=== PATIENT | male | born 1995 | race Two or more races ===

== ENCOUNTER 2023-09-04 13:31 | Inpatient (IN) | payer OTHER, SELFPAY ==
--- NOTE | 2023-09-04 | ECG_ITS ---
Test Reason : MED CLEARANCE Blood Pressure : / mmHG Vent. Rate : 086 BPM Atrial Rate : 086 BPM P-R Int : 148 ms QRS Dur : 084 ms QT Int : 354 ms P-R-T Axes : 061 048 042 degrees QTc Int : 423 ms Normal sinus rhythm Possible Left atrial enlargement Borderline ECG No previous ECGs available Referred By: Justin Chawla Electronically Signed By:ISSAC MUÑOZ MD
[2023-09-04 13:33] VITALS: BP 124/87; BP 130/92; PULSE 80; PULSE 92; RESP 20; TEMP 37.1; O2SAT 100; O2SAT 97; BMI 23.3
--- NOTE | 2023-09-04 13:42 | MHC.CARE ---
Cari harvey [facility] ([phone]) about this patient. She reports he is being sent on section 12. He is on the schizophrenia spectrum, is expressing vague SI/ HI. Religously preoccupied, responding to internal stimuli. He is noted to have not taken his medication for the past few days. Patient resides with his parents.
[2023-09-04 14:33] LABS: MANUAL DIFF FLAG NO
[2023-09-04 14:35] LABS: Basophils Absolute Auto 0.1 X10*3/uL (0.0-0.2); Basophils Percent Auto 0.5 % (0-2); Eosinophils Absolute Auto 0.1 X10*3/uL (0.0-0.4); Eosinophils Percent Auto 0.9 % (0-4); Hematocrit 45.1 % (42.0-52.0); Hemoglobin 15.1 g/dl (14.0-18.0); Imm Gran Abs Auto 0.06 X10*3/uL (0.00-0.03); Imm Gran Pct Auto 0.5 % (0.0-0.4); Lymphocytes Absolute Auto 2.2 X10*3/uL (1.2-4.9); Lymphocytes Percent Auto 17.3 % (20-40); Mean Corpuscular HGB Conc 33.5 g/dl (31.0-36.0); Mean Corpuscular Hemoglobin 32.5 pg (27.0-33.0); Mean Platelet Volume 9.3 fL (9.4-12.4); Monocytes Percent Auto 7.8 % (2-11); Neutrophils Absolute Auto 9.3 x10*3/uL (2.0-8.3); Platelet Count 326 X10*3/uL (160-400); Red Blood Count 4.65 X10*6/uL (4.60-5.80); Red Cell Distribution Width 13.2 % (11.0-16.0); White Blood Count 12.7 X10*3/uL (4.8-10.8)
[2023-09-04 14:47] LABS: COVID-19 Test Negative (Negative); IDNOW Serial# 08D9AD1C
[2023-09-04 14:49] LABS: Alanine Aminotransferase 16 U/L (0-40); Albumin Level 4.5 g/dL (3.5-5.0); Alkaline Phosphatase 74 U/L (39-117); Anion Gap 13 (12-20); Aspartate Amino Transferase 18 U/L (5-37); Bilirubin Total 0.3 mg/dL (0.0-1.0); Blood Urea Nitrogen 9 mg/dL (9-16); Calcium 9.3 mg/dL (8.4-10.2); Carbon Dioxide 27 mmol/L (22-29); Chloride 106 mmol/L (96-108); Creatinine Clr Calc Pharmacy 107.7; Estimated Glomerular Filt Rate > 60; Glucose Random 103 mg/dL (60-115); Lipase 24 U/L (8-78); Magnesium 2.3 mg/dL (1.6-2.6); Potassium 3.9 mmol/L (3.3-5.1); Sodium 142 mmol/L (135-145); Total Protein 7.7 g/dL (6.5-8.0)
[2023-09-04 14:52] LABS: Acetaminophen LAB < 3 mcg/mL (<30); Salicylate < 5.0 mg/dL (15-30)
--- NOTE | 2023-09-04 15:15 | ED_ITS ---
HPI - Psych General Chief Complaint: Psychiatric Symptoms Stated Complaint: SEC 12 CRISIS,MANIC,COOPERATIVE Time Seen by Provider: 09/04/23 16:15 Source: patient and EMS Mode of arrival: ambulatory Limitations: no limitations History of Present Illness HPI Narrative: This is a 27-year-old male presenting with concerns of not feeling like himself, he was seen at [facility] today where he was going to get Section, mother made him leave at the clinic, patient went home and subsequently was Section by police. Non med compliant. Not SI or HI. Having hallucinations and speaking to self during history taking. Denies drugs, alcohol tobacco. No medical complaints. Related Data Home Medications Medication Instructions Recorded Confirmed citalopram 20 mg tablet 20 mg PO DAILY 09/04/23 09/04/23 cyanocobalamin (vitamin B-12) 1,000 mcg PO DAILY 09/04/23 09/04/23 1,000 mcg tablet hydrochlorothiazide 12.5 mg capsule 12.5 mg PO DAILY 09/04/23 09/04/23 risperidone 2 mg tablet 2 mg PO BID 09/04/23 09/04/23 thiamine HCl (vitamin B1) 100 mg 100 mg PO DAILY 09/04/23 09/04/23 tablet Allergies Allergy/AdvReac Type Severity Reaction Status Date / Time No Known Allergies Allergy Verified 09/04/23 23:31 Review of Systems 2 Review of Systems: Constitutional : No Weight loss, No Fever, No Chills, No Fatigue, No Malaise ENT/Mouth : No sore throat, No Rhinorrhea Eyes: No Eye Pain, No Swelling, No Redness Cardiovascular : No Chest Pain, No SOB, No Dyspnea on Exertion, No Orthopnea, No Edema, No Palpitations Respiratory : No Cough, No Sputum, No Wheezing Gastrointestinal : No Nausea, No Vomiting, No Diarrhea, No Constipation, No abdominal Pain, No Hematochezia, No Melena Genitourinary : No Dysuria, No Urinary Frequency, No Hematuria, Musculoskeletal : No joint pain, No Myalgias, No Joint Swelling Skin : No Skin Lesions, No rash Neuro : No Weakness, No Numbness, No Dizziness, No Headache Psych : No Anxiety/Panic, No Depression, + hallucinations, No SI/HI All other systems reviewed and are negative Yes all other systems are reviewed and are negative [facility] Past Medical History Attestation statement: The following information was validated with the patient. Source: old records reviewed and nursing notes reviewed Social History Social History Advance Directives: No Advance Directives Information Provided: No Physical Exam 2 Vital Signs: Vital Signs: Last Vital Signs Temp 97.7 F 09/05/23 06:28 Pulse 68 09/05/23 06:28 Resp 16 09/05/23 06:28 BP 131/77 09/05/23 06:28 Pulse Ox 98 09/05/23 06:28 O2 Del Method Room Air 09/05/23 06:28 BMI result Body Mass Index 23.3 vss Appearance: Alert.? Oriented X3.? No acute distress.?Patient mumbling to self. Head: Normocephalic, atraumatic, no step-offs or deformities Eyes: Pupils equal, round and reactive to light.? ENT: Pharynx normal.? Neck: Normal inspection.? Neck supple.? CVS: Normal heart rate and rhythm.? Pulses normal.? Respiratory: No respiratory distress.? Breath sounds normal.? Abdomen: Soft and nontender.? Skin: Skin warm and dry.? Normal skin color.? Normal skin turgor.? Extremities: No lower extremity edema.? No calf ttp. 5/5 strength to bilateral upper and lower extremities Neuro: Oriented X 3.? No motor deficit.? No sensory deficit. CN 2-12 intact Course Reevaluation(s) Reevaluation #1: Patient with slight leukocytosis this could be around patient's baseline or reactive, I do not suspect infection. No left shift. Chemistry unremarkable. Salicylates, acetaminophen negative. COVID negative. Urine still pending. Time: 15:37 Reevaluation #2: Pending care team evaluation. Time: 15:38 Reevaluation #3: Physician observation to be continued, patient is pending inpatient placement. Home med reconciliation done. Uneventful night. Will continue to monitor. Time: 06:51 Medical Decision Making Medical Decision Making [facility] Narrative: [id number] 27-year-old male presents with acute daina/psychosis, on a Section 12 by police. Physical exam patient mumbling to himself bizarre affect. Concerns for non med compliance and likely schizophrenia versus bipolar disorder. Will rule out metabolic derangements although unlikely patient has no medical complaints. Will also rule out UTI. Will rule out polysubstance abuse and alcohol intoxication Plan medical clearance evaluation by behavioral health Differential Diagnosis Differential Diagnoses: The differential diagnosis associated with the presentation includes Concerns for non med compliance and likely schizophrenia versus bipolar disorder. Will rule out metabolic derangements although unlikely patient has no medical complaints. Will also rule out UTI. Will rule out polysubstance abuse and alcohol intoxication Admission/Observation Consideration of admission/observation: Escalation of care including admission/observation considered Likely Lab Data MDM Lab Attestation statement: I reviewed the patient's lab results. 09/04/23 14:24 09/04/23 14:24 Labs: Lab Results 09/04/23 09/04/23 Range/Units 14:24 16:23 WBC 12.7 H (4.8-10.8) X10*3/uL RBC 4.65 (4.60-5.80) X10*6/uL Hgb 15.1 (14.0-18.0) g/dl Hct 45.1 (42.0-52.0) % MCV 97.0 (80.0-98.0) fL MCH 32.5 (27.0-33.0) pg MCHC 33.5 (31.0-36.0) g/dl RDW 13.2 (11.0-16.0) % Plt Count 326 (160-400) X10*3/uL MPV 9.3 L (9.4-12.4) fL Immature Gran % (Auto) 0.5 H (0.0-0.4) % Neut % (Auto) 73.0 (45-73) % Lymph % (Auto) 17.3 L (20-40) % [place] % (Auto) 7.8 (2-11) % Eos % (Auto) 0.9 (0-4) % Baso % (Auto) 0.5 (0-2) % Lymph # (Auto) 2.2 (1.2-4.9) X10*3/uL [place] # (Auto) 1.0 (0.1-1.2) X10*3/uL Eos # (Auto) 0.1 (0.0-0.4) X10*3/uL Baso # (Auto) 0.1 (0.0-0.2) X10*3/uL Abs Immat Gran (auto) 0.06 H (0.00-0.03) X10*3/uL Absolute Neuts (auto) 9.3 H (2.0-8.3) x10*3/uL Absolute Nucleated RBC 0.000 (0.0-0.012) X10*3/uL Nucleated RBC % (auto) 0.0 (0.0-0.2) /100WBC Sodium 142 (135-145) mmol/L Potassium 3.9 (3.3-5.1) mmol/L Chloride 106 (96-108) mmol/L Carbon Dioxide 27 (22-29) mmol/L Anion Gap 13 (12-20) BUN 9 (9-16) mg/dL Creatinine 0.88 (0.5-1.4) mg/dL Estim Creat Clear Calc 107.7 Estimated GFR > 60 Random Glucose 103 (60-115) mg/dL Calcium 9.3 (8.4-10.2) mg/dL Magnesium 2.3 (1.6-2.6) mg/dL Total Bilirubin 0.3 (0.0-1.0) mg/dL AST 18 (5-37) U/L ALT 16 (0-40) U/L Alkaline Phosphatase 74 (39-117) U/L Total Protein 7.7 (6.5-8.0) g/dL Albumin 4.5 (3.5-5.0) g/dL Lipase 24 (8-78) U/L Urine Color Dark Yellow Urine Appearance Cloudy Urine pH 6.0 (5.0-9.0) Ur Specific [place] >= 1.030 H (1.005-1.025) Urine Protein Trace (Neg-Trace) mg/dL Urine Glucose (UA) Negative (Negative) mg/dL Urine Ketones 15 (Negative) mg/dL Urine Blood Negative (Negative) Urine Nitrite Negative (Negative) Ur Leukocyte Esterase Trace H (Negative) Urine RBC 3-5 H (0-2) /HPF Urine WBC 0-5 (0-5) /HPF Ur Squamous Epith Cells 3-5 (0-2) /HPF Calcium Oxalate Crystal Present Urine Bacteria None Seen (None Seen) Hyaline Casts 6-10 (0-2) /LPF Salicylates < 5.0 L (15-30) mg/dL Urine Opiates Screen Not Detected (Not Detect) Urine Fentanyl Screen Not Detected (Not Detect) Acetaminophen < 3 (<30) mcg/mL Ur Barbiturates Screen Not Detected (Not Detect) Ur Phencyclidine Scrn Not Detected (Not Detect) Ur Amphetamines Screen Not Detected (Not Detect) U Benzodiazepines Scrn Not Detected (Not Detect) Urine Cocaine Screen Not Detected (Not Detect) U Marijuana (THC) Screen POSITIVE H (Not Detect) Ethyl Alcohol < 10 mg/dL COVID-19 (CAROL) Negative (Negative) COVID-19 Clin Com See Note Critical Care Time Critical Care Time Critical Care Time: No Discharge Plan Discharge Clinical Impression: Acute psychosis Patient Disposition: Still a Patient Prescriptions: No Action cyanocobalamin (vitamin B-12) 1,000 mcg tablet 1,000 mcg PO DAILY thiamine HCl (vitamin B1) 100 mg tablet 100 mg PO DAILY risperidone 2 mg tablet 2 mg PO BID citalopram 20 mg tablet 20 mg PO DAILY hydrochlorothiazide 12.5 mg capsule 12.5 mg PO DAILY Interventions: [place]-Suicide Risk Severity Scale Last Done: 09/05/23 00:41
[2023-09-04 16:11] VITALS: BP 117/80; PULSE 95; RESP 20; TEMP 36.6; O2SAT 95
[2023-09-04 16:34] LABS: Appearance Urine Cloudy; Color Urine Dark Yellow; Glucose Urine UA Negative (Negative); Leukocyte Esterase Urine Trace (Negative); Nitrite Urine Negative (Negative); Specific Gravity - Urine >= 1.030 (1.005-1.025); UMIC TRIGGER UACC YES; Urine Blood Negative (Negative); Urine Ketones 15 mg/dL (Negative); Urine Protein Trace mg/dL (Neg-Trace)
[2023-09-04 16:39] LABS: Amphetamine Screen Urine Not Detected (Not Detect); Barbiturates, Urine Not Detected (Not Detect); Benzodiazepines Screen Urine Not Detected (Not Detect); Cannabinoid Screen Urine POSITIVE (Not Detect); Cocaine Screen Urine Not Detected (Not Detect); Fentanyl, urine Not Detected (Not Detect); Opiate Screen Urine Not Detected (Not Detect); Phencyclidine Screen Urine Not Detected (Not Detect)
[2023-09-04 16:40] LABS: Ethanol < 10 mg/dL
[2023-09-04 16:51] LABS: Bacteria Urine None Seen (None Seen); Calcium Oxalate Crystals Urine Present; WBC Urine 0-5 /HPF (0-5)
--- NOTE | 2023-09-04 17:12 | PC.NURSE ---
Patient currently laying in bed. States he has no name when asked, ignores staff when spoken to.
--- NOTE | 2023-09-04 17:39 | MHC.CARE ---
Anuradha Valencia [facility] [phone] [facility] [phone]
--- NOTE | 2023-09-05 00:43 | PC.NURSE ---
Patient is currently in bed appears sleeping, no distress observed/reported, isolative and non concerning behavior, med rec completed/pending provider's approval, disposition per [facility] is section 12 inpatient bed search, labs completed/resulted, will continue to monitor.
[2023-09-05 06:28] VITALS: BP 131/77; PULSE 68; RESP 16; TEMP 36.5; O2SAT 98
--- NOTE | 2023-09-05 06:53 | PC.NURSE ---
patient appears to remain asleep at present respirations are even and unlabored patient appears in no distress
[2023-09-05] MEDS: hydroCHLOROthiazide 12.5 MG TABLET PO (07:16)
[2023-09-05] MEDS: Thiamine HCL 100 MG TABLET PO (07:16)
[2023-09-05] MEDS: risperiDONE 2 MG TABLET PO ×2 (07:16→21:15)
[2023-09-05] MEDS: Cyanocobalamin (Vitamin B-12) 1,000 MCG TABLET 1000 MCG PO (07:16)
[2023-09-05] MEDS: Escitalopram Oxalate 10 MG TABLET PO (11:17)
--- NOTE | 2023-09-05 15:19 | PHA.MEDREC ---
Pharmacy Consult ? Medication Reconciliation Pharmacy has reviewed the medication reconciliation completed by nursing.
--- NOTE | 2023-09-05 16:41 | PC.NURSE ---
patient acting unusual, disconnected coming out stating my parents are
[2023-09-05 19:17] VITALS: BP 115/89; PULSE 89; TEMP 36.2; O2SAT 96
[2023-09-05] MEDS: OLANZapine 5 MG TABLET PO (21:16)
--- NOTE | 2023-09-05 23:26 | PC.ADMIT ---
Patient is a 27 year old single Mongolian speaking male, admitted on a Section 12B to at 1630 and placed on 5 minute safety checks. Patient was evaluated by the [facility] clinic and sent to [facility] ED. He was deemed in need of IPLOC due to patient being noncompliant with his medications x 3 days, paranoid and disorganized, voicing HI and responding to internal stimuli. Patient has also, according to the assessment, been drinking a lot of alcohol. Patient has been treated via IPLOC with the last time being in August of 2021. Patient's utox was positive for marijuana but his ETOH level was <10. During the admission process, patient's speech was noted to be very quiet and, at times, hard to understand. He denied AH or VH but did appear to be responding to internal stimuli. Patient was able to sign releases for his father, pharmacy and insurance company. He could not remember the names of his PCP, therapist or psychiatrist. Patient was difficult to engage during his admission assessment, and thought blocking was noted. Patient was unable, or unwilling, to state how much ETOH he has been drinking. No signs or symptoms of withdrawal noted by this greeting card writer. Patient was cooperative with skin check, ate dinner, showered but did not attend any groups. He needed to be redirected a few times when he tried to wander into other patients' rooms. Patient did not rate his depression or anxety,, he denied any SI or HI. Took his HS meds and was willing to have a mouth check done.
[2023-09-06] MEDS: Cyanocobalamin (Vitamin B-12) 1,000 MCG TABLET 1000 MCG PO (08:34)
[2023-09-06] MEDS: Thiamine HCL 100 MG TABLET PO (08:34)
[2023-09-06] MEDS: risperiDONE 2 MG TABLET PO ×2 (08:34→18:49)
[2023-09-06] MEDS: hydroCHLOROthiazide 12.5 MG TABLET PO (08:34)
[2023-09-06 08:50] VITALS: BP 121/79; PULSE 78; RESP 16; TEMP 37.2; O2SAT 99
[2023-09-06 09:15] LABS: Estimated Average Glucose 103 mg/dL; Hemoglobin A1c % 5.2 % (<6.0)
[2023-09-06 09:32] LABS: Cholesterol 199 mg/dL (<200); HDL Cholesterol 51 mg/dL (>40); LDL Cholesterol Calculated 126 mg/dL (<100); Magnesium 2.2 mg/dL (1.6-2.6); Triglycerides 112 mg/dL (<150)
[2023-09-06 09:46] LABS: Free T4 (Free Thyroxine) 0.97 ng/dL (0.71-1.85); Thyroid Stimulating Hormone 0.88 uIU/mL (0.32-4.0)
[2023-09-06 10:01] LABS: Vitamin B12 1073 pg/mL (200-900)
--- NOTE | 2023-09-06 14:47 | HO.PSYADMNOT ---
HPI Date of Service: 09/06/23 Chief Complaint: acute psychosis Sources of Information: patient interviewed, chart reviewed and crisis/core team assessment reviewed HPI Subjective Notes: Haydee Warning and Section 12B Healthcare Proxy: No Guardianship: No Medical Problems Affecting Mental Status: No Narrative: 27 yo male, to ER with parents from [facility] per recommendation of his therapist with paranoia, disorganized thinking, responding to internal stimuli, SI, HI per father's report, alcohol abuse, medication non compliance. Family reports self-dialoguing, dissociative episodes, restoration preoccupation (asking parents if he was God), loss of memory, lability and irritability. Family believes pt had not taken meds in ~72 hours prior to admission. On the unit, pt presents with acute psychosis. Intermittent med compliance-positive response per team when he does take medication. He allowed a brief meeting with tw to discuss discharge. 12B/Haydee explained. Pt did not want to discuss further. Showering this afternoon, however remains somewhat isolative. Able to complete some of his psychosocial history with Heather GARCIA. Symptoms decrease with medicine compliance Past Psychiatric History: IP: Similiar presentation Aug 2021, Substance Induced Psychosis OP: R[facility], [facility] Regime: Celexa 20 mg, Risperdal 2 mg, Hydroxyzine, Folic Acid, B12 Medical Evaluation Reviewed: Yes [facility] Medical History (Updated 09/06/23 @ 17:04 by Gloria Holland, WATER SERVICE DISPATCHER) Cannabis use disorder Alcohol use disorder Schizophrenia Social History: Living with parents Substance History: Alcohol, Cannabis Diagnostics Vital Signs (24Hr): Vital Signs - 24 hr 09/05/23 19:17 09/06/23 08:50 Temperature 97.1 F 98.9 F Pulse Rate 89 78 Respiratory Rate 16 Blood Pressure 115/89 121/79 Pulse Oximetry 96 99 Oxygen Delivery Method Room Air Room Air BMI result Body Mass Index 23.3 Labs 09/04/23 14:24 09/04/23 14:24 Labs: Laboratory Results - last 48 hr 09/04/23 09/04/23 09/06/23 14:24 16:23 08:31 Sodium 142 Potassium 3.9 Chloride 106 Carbon Dioxide 27 Anion Gap 13 BUN 9 Creatinine 0.88 Estim Creat Clear Calc 107.7 Estimated GFR > 60 Random Glucose 103 Estimat Average Glucose 103 Hemoglobin A1c % 5.2 Calcium 9.3 Magnesium 2.3 2.2 Total Bilirubin 0.3 AST 18 ALT 16 Alkaline Phosphatase 74 Total Protein 7.7 Albumin 4.5 Triglycerides 112 Cholesterol 199 LDL Cholesterol, Calc 126 H HDL Cholesterol 51 Lipase 24 Vitamin B12 1073 H Folate 11.0 TSH 0.88 Free T4 0.97 Urine Color Dark Yellow Urine Appearance Cloudy Urine pH 6.0 Ur Specific [place] >= 1.030 H Urine Protein Trace Urine Glucose (UA) Negative Urine Ketones 15 Urine Blood Negative Urine Nitrite Negative Ur Leukocyte Esterase Trace H Urine RBC 3-5 H Urine WBC 0-5 Ur Squamous Epith Cells 3-5 Calcium Oxalate Crystal Present Urine Bacteria None Seen Hyaline Casts 6-10 Salicylates < 5.0 L Urine Opiates Screen Not Detected Urine Fentanyl Screen Not Detected Acetaminophen < 3 Ur Barbiturates Screen Not Detected Ur Phencyclidine Scrn Not Detected Ur Amphetamines Screen Not Detected U Benzodiazepines Scrn Not Detected Urine Cocaine Screen Not Detected U Marijuana (THC) Screen POSITIVE H Ethyl Alcohol < 10 COVID-19 (CAROL) Negative COVID-19 Clin Com See Note Meds/Allergies Meds Home Medications Medication Instructions Recorded Confirmed Type citalopram 20 mg tablet 20 mg PO DAILY 09/04/23 09/04/23 History cyanocobalamin (vitamin B-12) 1,000 mcg PO DAILY 09/04/23 09/04/23 History 1,000 mcg tablet hydrochlorothiazide 12.5 mg capsule 12.5 mg PO DAILY 09/04/23 09/04/23 History risperidone 2 mg tablet 2 mg PO BID 09/04/23 09/04/23 History thiamine HCl (vitamin B1) 100 mg 100 mg PO DAILY 09/04/23 09/04/23 History tablet Allergies Allergies Allergy/AdvReac Type Severity Reaction Status Date / Time No Known Allergies Allergy Verified 09/04/23 23:31 Mental Status Exam Mental Status Exam Patient Appearance: Fatigued Patient Orientation: Person, Place and Situation Level of Consciousness: Awake and Alert Patient Behavior: Guarded, Suspicious, Fearful, Avoidant, Distractible, Isolative and Good Eye Contact Mood Description: Suspicious, Withdrawn, Constricted, Fearful, Blunted and Apprehensive Affect Description: Constricted Patient Cognition Impaired: Yes Ability to Follow Directions: Fair Speech Pattern: Spontaneous Speech, Soft-Spoken, Delayed and Long Pauses Memory Description: Remote Impaired and Episodic Impaired Hallucinations: Auditory (active response when interviewed) Delusions: Paranoid Ideation and Present Perceptual Disturbances: Depersonalization, Derealization and Hallucinations Thought Process: Distracted and Rumination Thought Content: positive for [place], positive for Circumstantial, positive for Perseveration, positive for Preoccupation, positive for Evasive, positive for Suicidal Ideation and positive for Homicidal Ideation Depressive Symptoms: Loss of Int. in Activity, Isolating-Friends/Family, Thoughts of /Suicide and Difficulty Concentrating Judgement: Poor Assessment & Plan Assessment & Plan (1) Acute psychosis: Status: Acute Code(s): F23 - Brief psychotic disorder (2) Schizophrenia: Status: Acute Code(s): F20.9 - Schizophrenia, unspecified (3) Alcohol use disorder: Status: Acute Code(s): F10.90 - Alcohol use, unspecified, uncomplicated (4) Cannabis use disorder: Status: Acute Code(s): F12.90 - Cannabis use, unspecified, uncomplicated Plan 27 yo male, presents with acute psychosis, ?schizophrenia, alcohol and cannabis use disorder. Pt is a very poor historian, focused on leaving the hospital and with intermittent resistance to medications. By hx, pt does well on regime which we will keep, holding the antidepressant while his psychotic sx are better managed. Will use lorazepam for detox with supportive MVI, folic acid and thiamine. Plan: Collateral Contact Olanzapine prn Lorazepam detox per CIWA MVI, Thiamine, Folic Acid Continue Risperdal Encourage alliance building Patient educated on: therapeutic strategies Informed Consent: does not understand Reason for continued inpatient stay Substantial Risk for: harm to self, harm to others, inability to function and rapid decompensation Statement Statement: I have reviewed the history and physical and performed a pertinent examination on my patient. No changes have occurred unless specified. If the History and Physical was not performed prior to admission, the Hospitalist's service will be consulted for completing the admission physical. Time Spent With Patient Time: Total time managing care of this patient today ____ minutes.
[2023-09-06 17:30] VITALS: BP 139/90; PULSE 115; TEMP 36.4; O2SAT 100
[2023-09-06] MEDS: OLANZapine 5 MG TABLET PO (18:49)
[2023-09-07] MEDS: hydroCHLOROthiazide 12.5 MG TABLET PO (08:01)
[2023-09-07] MEDS: risperiDONE 2 MG TABLET PO ×2 (08:02→19:55)
[2023-09-07] MEDS: Cyanocobalamin (Vitamin B-12) 1,000 MCG TABLET 1000 MCG PO (08:02)
[2023-09-07] MEDS: Thiamine HCL 100 MG TABLET PO (08:02)
[2023-09-07] MEDS: Multivitamin TABLET 1 TAB PO (08:02)
[2023-09-07 08:11] VITALS: BP 126/84; PULSE 107; RESP 16; TEMP 36.6; O2SAT 98
--- NOTE | 2023-09-07 10:38 | HO.PSYCHPN ---
Subjective Subjective Date of Service: 09/07/23 Reason For Visit: acute psychosis Subjective Notes: Section 12B Medical Problems Affecting Mental Status: No Interim History: pt anxious responding to internal stimuli; reports voices but not content; pt visited with parents; pt paranoid and fearful Medication Compliance: Yes Side effects from medications: No Attending Groups: No Review of Systems Acute medical concerns: No Medical Review of Systems: unchanged Review of Systems Review of Systems Constitutional : No Weight loss, No Fever, No Chills, No Fatigue, No Malaise ENT/Mouth : No sore throat, No Rhinorrhea Eyes: No Eye Pain, No Swelling, No Redness Cardiovascular : No Chest Pain, No SOB, No Dyspnea on Exertion, No Orthopnea, No Edema, No Palpitations Respiratory : No Cough, No Sputum, No Wheezing Gastrointestinal : No Nausea, No Vomiting, No Diarrhea, No Constipation, No abdominal Pain, No Hematochezia, No Melena Genitourinary : No Dysuria, No Urinary Frequency, No Hematuria, Musculoskeletal : No joint pain, No Myalgias, No Joint Swelling Skin : No Skin Lesions, No rash Neuro : No Weakness, No Numbness, No Dizziness, No Headache Psych : No Anxiety/Panic, No Depression, + hallucinations, No SI/HI All other systems reviewed and are negative Yes all other systems are reviewed and are negative and Unobtainable due to mental status Mental Status Exam Mental Status Exam Patient Appearance: Fatigued Patient Orientation: Person, Place and Situation Level of Consciousness: Awake and Alert Patient Behavior: Guarded, Suspicious, Fearful, Avoidant, Distractible, Isolative and Good Eye Contact Mood Description: Suspicious, Withdrawn, Constricted, Fearful, Blunted and Apprehensive Affect Description: Constricted Patient Cognition Impaired: Yes Ability to Follow Directions: Fair Speech Pattern: Spontaneous Speech, Soft-Spoken, Delayed and Long Pauses Memory Description: Remote Impaired and Episodic Impaired Judgement: Poor Diagnostics Vital Signs (24Hr): Vital Signs - 24 hr 09/06/23 17:30 09/07/23 08:11 Temperature 97.5 F 97.9 F Pulse Rate 115 H 107 H Respiratory Rate 16 Blood Pressure 139/90 H 126/84 Pulse Oximetry 100 98 Oxygen Delivery Method Room Air Room Air BMI result Body Mass Index 23.3 Labs 09/04/23 14:24 09/04/23 14:24 Labs: Laboratory Results - last 48 hr 09/06/23 08:31 Estimat Average Glucose 103 Hemoglobin A1c % 5.2 Magnesium 2.2 Triglycerides 112 Cholesterol 199 LDL Cholesterol, Calc 126 H HDL Cholesterol 51 Vitamin B12 1073 H Folate 11.0 TSH 0.88 Free T4 0.97 Medications Medications Current Medications Acetaminophen (Acetaminophen 325 Mg Tablet) 650 mg PO Q6H PRN PRN Reason: Headache/Pain Mild Scale (1-3) Al Hydroxide/Mg Hydroxide (Magnesium Hydrox/Alum Hydrox 30 Ml Oral.Susp) 30 ml PO Q6H PRN PRN Reason: Heartburn/Nausea Cyanocobalamin (Cyanocobalamin (Vitamin B-12) 1,000 Mcg Tablet) 1,000 mcg PO DAILY [facility] Last Admin: 09/07/23 08:02 Dose: 1,000 mcg Hydrochlorothiazide (Hydrochlorothiazide 12.5 Mg Tablet) 12.5 mg PO DAILY [facility]; Protocol Last Admin: 09/07/23 08:01 Dose: 12.5 mg Hydroxyzine HCl (Hydroxyzine Hcl 25 Mg Tablet) 25 mg PO Q6H PRN PRN Reason: Anxiety Lorazepam (Lorazepam 1 Mg Tablet) 1 mg PO Q2H PRN PRN Reason: ciwa 6-10 Lorazepam (Lorazepam 1 Mg Tablet) 2 mg PO Q2H PRN PRN Reason: ciwa 11+ Magnesium Hydroxide (Milk Of Magnesia 30 Ml Oral.Susp) 30 ml PO DAILY PRN PRN Reason: Constipation Multivitamins/Vitamin C (Multivitamin Tablet) 1 tab PO DAILY [facility] Last Admin: 09/07/23 08:02 Dose: 1 tab Olanzapine (Olanzapine 5 Mg Tablet) 5 mg PO Q4H PRN PRN Reason: psychosis, daina, agitation Last Admin: 09/06/23 18:49 Dose: 5 mg Risperidone (Risperidone 2 Mg Tablet) 2 mg PO BID [facility] Last Admin: 09/07/23 08:02 Dose: 2 mg Thiamine HCl (Thiamine Hcl 100 Mg Tablet) 100 mg PO DAILY [facility] Last Admin: 09/07/23 08:02 Dose: 100 mg Trazodone HCl (Trazodone Hcl 50 Mg Tablet) 50 mg PO BEDTIME MRX1 PRN PRN Reason: Insomnia Allergies Allergies Allergy/AdvReac Type Severity Reaction Status Date / Time No Known Allergies Allergy Verified 09/04/23 23:31 Assessment & Plan Assessment & Plan (1) Acute psychosis: Status: Acute Code(s): F23 - Brief psychotic disorder (2) Schizophrenia: Status: Acute Code(s): F20.9 - Schizophrenia, unspecified (3) Alcohol use disorder: Status: Acute Code(s): F10.90 - Alcohol use, unspecified, uncomplicated (4) Cannabis use disorder: Status: Acute Code(s): F12.90 - Cannabis use, unspecified, uncomplicated Plan 27 yo male, presents with acute psychosis, ?schizophrenia, alcohol and cannabis use disorder. Pt is a very poor historian, focused on leaving the hospital and with intermittent resistance to medications. By hx, pt does well on regime which we will keep, holding the antidepressant while his psychotic sx are better managed. Will use lorazepam for detox with supportive MVI, folic acid and thiamine. Plan: Collateral Contact Olanzapine prn Lorazepam detox per CIWA MVI, Thiamine, Folic Acid Continue Risperdal Encourage alliance building add hydroxyzine 10mg BID for anxiety Patient educated on: diagnosis, medication risk/benefits and therapeutic strategies Informed Consent: does not understand Reason for continued inpatient stay Substantial Risk for: harm to self, inability to function and rapid decompensation Time Spent With Patient Time: Total time managing care of this patient today ____ minutes.
[2023-09-07] MEDS: hydrOXYzine HCL 25 MG TABLET PO (14:16)
[2023-09-07 16:54] VITALS: BP 141/90; PULSE 106; TEMP 36.2; O2SAT 94
[2023-09-07] MEDS: OLANZapine 5 MG TABLET PO (19:55)
[2023-09-07] MEDS: hydrOXYzine HCL 10 MG TABLET PO (19:55)
[2023-09-08] MEDS: risperiDONE 2 MG TABLET PO ×2 (07:59→22:00)
[2023-09-08] MEDS: Thiamine HCL 100 MG TABLET PO (07:59)
[2023-09-08] MEDS: hydrOXYzine HCL 10 MG TABLET PO ×2 (07:59→22:00)
[2023-09-08] MEDS: hydroCHLOROthiazide 12.5 MG TABLET PO (07:59)
[2023-09-08] MEDS: Multivitamin TABLET 1 TAB PO (07:59)
[2023-09-08] MEDS: Cyanocobalamin (Vitamin B-12) 1,000 MCG TABLET 1000 MCG PO (07:59)
[2023-09-08 08:09] VITALS: BP 128/89; PULSE 84; RESP 16; TEMP 36.1; O2SAT 98
[2023-09-08] MEDS: OLANZapine 5 MG TABLET PO (14:30)
[2023-09-08 18:00] VITALS: BP 145/92; PULSE 95; TEMP 36.4; O2SAT 100
--- NOTE | 2023-09-08 18:28 | HO.PSYCHPN ---
Subjective Subjective Date of Service: 09/08/23 Reason For Visit: acute psychosis Subjective Notes: Section 12B Interim History: pt anxious responding to internal stimuli; visible on unit more; less isolating to room; when asked if hearing voices says initially no and then yes sometimes. pt appears suspicious and guarded Medication Compliance: Yes Side effects from medications: No Attending Groups: Intermittent Review of Systems Acute medical concerns: No Medical Review of Systems: unchanged Review of Systems Review of Systems Constitutional : No Weight loss, No Fever, No Chills, No Fatigue, No Malaise ENT/Mouth : No sore throat, No Rhinorrhea Eyes: No Eye Pain, No Swelling, No Redness Cardiovascular : No Chest Pain, No SOB, No Dyspnea on Exertion, No Orthopnea, No Edema, No Palpitations Respiratory : No Cough, No Sputum, No Wheezing Gastrointestinal : No Nausea, No Vomiting, No Diarrhea, No Constipation, No abdominal Pain, No Hematochezia, No Melena Genitourinary : No Dysuria, No Urinary Frequency, No Hematuria, Musculoskeletal : No joint pain, No Myalgias, No Joint Swelling Skin : No Skin Lesions, No rash Neuro : No Weakness, No Numbness, No Dizziness, No Headache Psych : No Anxiety/Panic, No Depression, + hallucinations, No SI/HI All other systems reviewed and are negative Yes all other systems are reviewed and are negative and Unobtainable due to mental status Mental Status Exam Mental Status Exam Patient Appearance: Fatigued Patient Orientation: Person, Place and Situation Level of Consciousness: Awake and Alert Patient Behavior: Guarded, Suspicious, Fearful, Avoidant, Distractible, Isolative and Good Eye Contact Mood Description: Suspicious, Withdrawn, Constricted, Fearful, Blunted and Apprehensive Affect Description: Constricted Patient Cognition Impaired: Yes Ability to Follow Directions: Fair Speech Pattern: Spontaneous Speech, Soft-Spoken, Delayed and Long Pauses Memory Description: Remote Impaired and Episodic Impaired Judgement: Poor Diagnostics Vital Signs (24Hr): Vital Signs - 24 hr 09/08/23 08:09 Temperature 97.0 F Pulse Rate 84 Respiratory Rate 16 Blood Pressure 128/89 Pulse Oximetry 98 Oxygen Delivery Method Room Air BMI result Body Mass Index 23.3 Labs 09/04/23 14:24 09/04/23 14:24 Medications Medications Current Medications Acetaminophen (Acetaminophen 325 Mg Tablet) 650 mg PO Q6H PRN PRN Reason: Headache/Pain Mild Scale (1-3) Al Hydroxide/Mg Hydroxide (Magnesium Hydrox/Alum Hydrox 30 Ml Oral.Susp) 30 ml PO Q6H PRN PRN Reason: Heartburn/Nausea Cyanocobalamin (Cyanocobalamin (Vitamin B-12) 1,000 Mcg Tablet) 1,000 mcg PO DAILY [facility] Last Admin: 09/08/23 07:59 Dose: 1,000 mcg Hydrochlorothiazide (Hydrochlorothiazide 12.5 Mg Tablet) 12.5 mg PO DAILY [facility]; Protocol Last Admin: 09/08/23 07:59 Dose: 12.5 mg Hydroxyzine HCl (Hydroxyzine Hcl 25 Mg Tablet) 25 mg PO Q6H PRN PRN Reason: Anxiety Hydroxyzine HCl (Hydroxyzine Hcl 10 Mg Tablet) 10 mg PO BID [facility] Last Admin: 09/08/23 07:59 Dose: 10 mg Lorazepam (Lorazepam 1 Mg Tablet) 1 mg PO Q2H PRN PRN Reason: ciwa 6-10 Lorazepam (Lorazepam 1 Mg Tablet) 2 mg PO Q2H PRN PRN Reason: ciwa 11+ Magnesium Hydroxide (Milk Of Magnesia 30 Ml Oral.Susp) 30 ml PO DAILY PRN PRN Reason: Constipation Multivitamins/Vitamin C (Multivitamin Tablet) 1 tab PO DAILY [facility] Last Admin: 09/08/23 07:59 Dose: 1 tab Olanzapine (Olanzapine 5 Mg Tablet) 5 mg PO Q4H PRN PRN Reason: psychosis, daina, agitation Last Admin: 09/08/23 14:30 Dose: 5 mg Risperidone (Risperidone 2 Mg Tablet) 2 mg PO BID [facility] Last Admin: 09/08/23 07:59 Dose: 2 mg Thiamine HCl (Thiamine Hcl 100 Mg Tablet) 100 mg PO DAILY [facility] Last Admin: 09/08/23 07:59 Dose: 100 mg Trazodone HCl (Trazodone Hcl 50 Mg Tablet) 50 mg PO BEDTIME MRX1 PRN PRN Reason: Insomnia Allergies Allergies Allergy/AdvReac Type Severity Reaction Status Date / Time No Known Allergies Allergy Verified 09/04/23 23:31 Assessment & Plan Assessment & Plan (1) Acute psychosis: Status: Acute Code(s): F23 - Brief psychotic disorder (2) Schizophrenia: Status: Acute Code(s): F20.9 - Schizophrenia, unspecified (3) Alcohol use disorder: Status: Acute Code(s): F10.90 - Alcohol use, unspecified, uncomplicated (4) Cannabis use disorder: Status: Acute Code(s): F12.90 - Cannabis use, unspecified, uncomplicated Plan 27 yo male, presents with acute psychosis, ?schizophrenia, alcohol and cannabis use disorder. Pt is a very poor historian, focused on leaving the hospital and with intermittent resistance to medications. By hx, pt does well on regime which we will keep, holding the antidepressant while his psychotic sx are better managed. Will use lorazepam for detox with supportive MVI, folic acid and thiamine. Plan: Collateral Contact Olanzapine prn Lorazepam detox per CIWA MVI, Thiamine, Folic Acid Continue Risperdal Encourage alliance building add hydroxyzine 10mg BID for anxiety 09/08/23 continue treatmetn plan Reason for continued inpatient stay Substantial Risk for: harm to self, inability to function and rapid decompensation Time Spent With Patient Time: Total time managing care of this patient today ____ minutes.
[2023-09-09 06:00] VITALS: BP 129/85; PULSE 107; RESP 18; TEMP 36.2; O2SAT 98
[2023-09-09] MEDS: hydrOXYzine HCL 25 MG TABLET PO ×2 (07:00→15:55)
[2023-09-09] MEDS: Thiamine HCL 100 MG TABLET PO (08:55)
[2023-09-09] MEDS: Multivitamin TABLET 1 TAB PO (08:55)
[2023-09-09] MEDS: hydroCHLOROthiazide 12.5 MG TABLET PO (08:55)
[2023-09-09] MEDS: risperiDONE 2 MG TABLET PO (08:55)
[2023-09-09] MEDS: Cyanocobalamin (Vitamin B-12) 1,000 MCG TABLET 1000 MCG PO (08:55)
[2023-09-09] MEDS: hydrOXYzine HCL 10 MG TABLET PO ×2 (08:55→21:14)
--- NOTE | 2023-09-09 14:22 | P.PNPSI_ITS ---
Subjective Subjective Date of Service: 09/09/23 Reason For Visit: acute psychosis Subjective Notes: Section 12B (expires 09/10/23) Healthcare Proxy: No Guardianship: No Medical Problems Affecting Mental Status: No Interim History: Pt today is in the milieu, yet remains somewhat isolative. He talked briefly with tw x 2. States he is well, asked for nicotine patch and gum and asks to leave. He continues to have a church focus in content. Per team, family reports he is not ready yet. They will encouarge him to sign a CV and continue treatment for a few more days. He does exhibit sx of disorganization and confusion. Reportedly eating toothpaste, attempting to leave the unit over the weekend, responding to internal stimuli, which today he appears to be doing as well. Engagement is improved from 09/06, but remains limited. Will increase Risperdal today. Medication Compliance: Yes Side effects from medications: No Attending Groups: No Review of Systems Acute medical concerns: No Medical Review of Systems: unchanged Mental Status Exam Mental Status Exam Patient Appearance: Appropriate Patient Orientation: Person Level of Consciousness: Alert Patient Behavior: Guarded, Talkative, Suspicious, Distractible and Good Eye Contact Mood Description: Blunted Affect Description: Blunted Patient Cognition Impaired: Yes Ability to Follow Directions: Fair Speech Pattern: Spontaneous Speech and Soft-Spoken Memory Description: Remote Impaired Hallucinations: Auditory Delusions: Paranoid Ideation and Present Perceptual Disturbances: Hallucinations Thought Process: Illogical and Distracted Thought Content: positive for Flight of Ideas, positive for Circumstantial, positive for Preoccupation, positive for Loose Associations, positive for Thought Blocking, positive for Tangential and positive for Suicidal Ideation (denies) Depressive Symptoms: Difficulty Concentrating Judgement: Poor Diagnostics Vital Signs (24Hr): Vital Signs - 24 hr 09/08/23 18:00 09/09/23 06:00 Temperature 97.6 F 97.2 F Pulse Rate 95 107 H Respiratory Rate 18 Blood Pressure 145/92 H 129/85 Pulse Oximetry 100 98 Oxygen Delivery Method Room Air Room Air BMI result Body Mass Index 23.3 Labs 09/04/23 14:24 09/04/23 14:24 Medications Medications Current Medications Acetaminophen (Acetaminophen 325 Mg Tablet) 650 mg PO Q6H PRN PRN Reason: Headache/Pain Mild Scale (1-3) Al Hydroxide/Mg Hydroxide (Magnesium Hydrox/Alum Hydrox 30 Ml Oral.Susp) 30 ml PO Q6H PRN PRN Reason: Heartburn/Nausea Cyanocobalamin (Cyanocobalamin (Vitamin B-12) 1,000 Mcg Tablet) 1,000 mcg PO DAILY [facility] Last Admin: 09/09/23 08:55 Dose: 1,000 mcg Hydrochlorothiazide (Hydrochlorothiazide 12.5 Mg Tablet) 12.5 mg PO DAILY [facility]; Protocol Last Admin: 09/09/23 08:55 Dose: 12.5 mg Hydroxyzine HCl (Hydroxyzine Hcl 25 Mg Tablet) 25 mg PO Q6H PRN PRN Reason: Anxiety Last Admin: 09/09/23 07:00 Dose: 25 mg Hydroxyzine HCl (Hydroxyzine Hcl 10 Mg Tablet) 10 mg PO BID [facility] Last Admin: 09/09/23 08:55 Dose: 10 mg Lorazepam (Lorazepam 1 Mg Tablet) 1 mg PO Q2H PRN PRN Reason: ciwa 6-10 Lorazepam (Lorazepam 1 Mg Tablet) 2 mg PO Q2H PRN PRN Reason: ciwa 11+ Magnesium Hydroxide (Milk Of Magnesia 30 Ml Oral.Susp) 30 ml PO DAILY PRN PRN Reason: Constipation Multivitamins/Vitamin C (Multivitamin Tablet) 1 tab PO DAILY [facility] Last Admin: 09/09/23 08:55 Dose: 1 tab Nicotine (Nicotine 14 Mg Patch.Td24) 14 mg TRANSDERMA DAILY [facility] Nicotine Polacrilex (Nicotine Polacrilex 2 Mg Gum) 2 mg BUCCAL Q2H PRN PRN Reason: Nicotine Cravings Olanzapine (Olanzapine 5 Mg Tablet) 5 mg PO Q4H PRN PRN Reason: psychosis, daina, agitation Last Admin: 09/08/23 14:30 Dose: 5 mg Risperidone (Risperidone 3 Mg Tablet) 3 mg PO BID [facility] Thiamine HCl (Thiamine Hcl 100 Mg Tablet) 100 mg PO DAILY [facility] Last Admin: 09/09/23 08:55 Dose: 100 mg Trazodone HCl (Trazodone Hcl 50 Mg Tablet) 50 mg PO BEDTIME MRX1 PRN PRN Reason: Insomnia Allergies Allergies Allergy/AdvReac Type Severity Reaction Status Date / Time No Known Allergies Allergy Verified 09/04/23 23:31 Assessment & Plan Assessment & Plan (1) Acute psychosis: Status: Acute Code(s): F23 - Brief psychotic disorder (2) Schizophrenia: Status: Acute Code(s): F20.9 - Schizophrenia, unspecified (3) Alcohol use disorder: Status: Acute Code(s): F10.90 - Alcohol use, unspecified, uncomplicated (4) Cannabis use disorder: Status: Acute Code(s): F12.90 - Cannabis use, unspecified, uncomplicated Plan 27 yo male, presents with acute psychosis, ?schizophrenia, alcohol and cannabis use disorder. Pt is a very poor historian, focused on leaving the hospital and with intermittent resistance to medications. By hx, pt does well on regime which we will keep, holding the antidepressant while his psychotic sx are better managed. Will use lorazepam for detox with supportive MVI, folic acid and thiamine. Plan: Collateral Contact Olanzapine prn Lorazepam detox per CIWA MVI, Thiamine, Folic Acid Continue Risperdal Encourage alliance building add hydroxyzine 10mg BID for anxiety 09/08/23 continue treatmetn plan 09/09/23 Increase Risperdal to 3 mg bid Encou[facility] pt to remain in treatment and sign a conditional voluntary Patient educated on: therapeutic strategies Informed Consent: further education needed Reason for continued inpatient stay Substantial Risk for: rapid decompensation Time Spent With Patient Time: Total time managing care of this patient today ____ minutes.
[2023-09-09] MEDS: Nicotine 14 MG PATCH.TD24 TRANSDERMA (15:33)
[2023-09-09] MEDS: OLANZapine 5 MG TABLET PO (15:55)
[2023-09-09 16:40] VITALS: BP 124/90; PULSE 115; RESP 16; TEMP 37; O2SAT 99
[2023-09-09] MEDS: risperiDONE 3 MG TABLET PO (21:15)
[2023-09-10 08:30] VITALS: BP 136/83; PULSE 110; RESP 18; TEMP 36.8; O2SAT 96
[2023-09-10] MEDS: Nicotine 14 MG PATCH.TD24 TRANSDERMA (09:02)
[2023-09-10] MEDS: Cyanocobalamin (Vitamin B-12) 1,000 MCG TABLET 1000 MCG PO (09:03)
[2023-09-10] MEDS: hydrOXYzine HCL 10 MG TABLET PO ×2 (09:03→19:54)
[2023-09-10] MEDS: Multivitamin TABLET 1 TAB PO (09:03)
[2023-09-10] MEDS: Thiamine HCL 100 MG TABLET PO (09:03)
[2023-09-10] MEDS: hydroCHLOROthiazide 12.5 MG TABLET PO (09:04)
[2023-09-10] MEDS: risperiDONE 3 MG TABLET PO ×2 (09:04→19:54)
[2023-09-10] MEDS: Nicotine Polacrilex 2 MG GUM BUCCAL ×3 (13:12→22:46)
--- NOTE | 2023-09-10 15:14 | P.PNPSI_ITS ---
Subjective Subjective Date of Service: 09/10/23 Reason For Visit: acute psychosis Subjective Notes: Conditional Voluntary and Section 12B Healthcare Proxy: No Guardianship: No Medical Problems Affecting Mental Status: No Interim History: Section 12B . Met with pt, parents, Heather GARCIA. Pt signed CV. Plan of care discussed. Parents see pt as improved. Review of meds. Discussion of [facility] option for pre discharge. All are interested in this option, thinking this will be easier for pt to manage. Team report pt with some conflict on the unit-taking others food, trays, asking if peers want to fight, touched a staff member in a private area. Needing boundary reminders Medication Compliance: Yes Side effects from medications: No Attending Groups: No Review of Systems Acute medical concerns: No Review of Systems Review of Systems Yes all other systems are reviewed and are negative and Unobtainable due to mental status Mental Status Exam Mental Status Exam Patient Appearance: Appropriate Patient Orientation: Person Level of Consciousness: Alert Patient Behavior: Guarded, Talkative, Suspicious, Distractible and Good Eye Contact Mood Description: Blunted Affect Description: Blunted Patient Cognition Impaired: Yes Ability to Follow Directions: Fair Speech Pattern: Spontaneous Speech and Soft-Spoken Memory Description: Remote Impaired Hallucinations: Auditory Delusions: Paranoid Ideation and Present Perceptual Disturbances: Hallucinations Thought Process: Illogical and Distracted Thought Content: positive for Flight of Ideas, positive for Circumstantial, positive for Preoccupation, positive for Loose Associations, positive for Thought Blocking, positive for Tangential and positive for Suicidal Ideation (denies) Depressive Symptoms: Difficulty Concentrating Judgement: Poor Diagnostics Vital Signs (24Hr): Vital Signs - 24 hr 09/09/23 16:40 09/10/23 08:30 Temperature 98.6 F 98.2 F Pulse Rate 115 H 110 H Respiratory Rate 16 18 Blood Pressure 124/90 H 136/83 Pulse Oximetry 99 96 Oxygen Delivery Method Room Air Room Air BMI result Body Mass Index 23.3 Labs 09/04/23 14:24 09/04/23 14:24 Medications Medications Current Medications Acetaminophen (Acetaminophen 325 Mg Tablet) 650 mg PO Q6H PRN PRN Reason: Headache/Pain Mild Scale (1-3) Al Hydroxide/Mg Hydroxide (Magnesium Hydrox/Alum Hydrox 30 Ml Oral.Susp) 30 ml PO Q6H PRN PRN Reason: Heartburn/Nausea Cyanocobalamin (Cyanocobalamin (Vitamin B-12) 1,000 Mcg Tablet) 1,000 mcg PO DAILY [facility] Last Admin: 09/10/23 09:03 Dose: 1,000 mcg Hydrochlorothiazide (Hydrochlorothiazide 12.5 Mg Tablet) 12.5 mg PO DAILY [facility]; Protocol Last Admin: 09/10/23 09:04 Dose: 12.5 mg Hydroxyzine HCl (Hydroxyzine Hcl 25 Mg Tablet) 25 mg PO Q6H PRN PRN Reason: Anxiety Last Admin: 09/09/23 15:55 Dose: 25 mg Hydroxyzine HCl (Hydroxyzine Hcl 10 Mg Tablet) 10 mg PO BID [facility] Last Admin: 09/10/23 09:03 Dose: 10 mg Lorazepam (Lorazepam 1 Mg Tablet) 1 mg PO Q2H PRN PRN Reason: ciwa 6-10 Lorazepam (Lorazepam 1 Mg Tablet) 2 mg PO Q2H PRN PRN Reason: ciwa 11+ Magnesium Hydroxide (Milk Of Magnesia 30 Ml Oral.Susp) 30 ml PO DAILY PRN PRN Reason: Constipation Multivitamins/Vitamin C (Multivitamin Tablet) 1 tab PO DAILY [facility] Last Admin: 09/10/23 09:03 Dose: 1 tab Nicotine (Nicotine 14 Mg Patch.Td24) 14 mg TRANSDERMA DAILY [facility] Last Admin: 09/10/23 09:02 Dose: 14 mg Nicotine Polacrilex (Nicotine Polacrilex 2 Mg Gum) 2 mg BUCCAL Q2H PRN PRN Reason: Nicotine Cravings Last Admin: 09/10/23 13:12 Dose: 2 mg Olanzapine (Olanzapine 5 Mg Tablet) 5 mg PO Q4H PRN PRN Reason: psychosis, daina, agitation Last Admin: 09/09/23 15:55 Dose: 5 mg Risperidone (Risperidone 3 Mg Tablet) 3 mg PO BID [facility] Last Admin: 09/10/23 09:04 Dose: 3 mg Thiamine HCl (Thiamine Hcl 100 Mg Tablet) 100 mg PO DAILY [facility] Last Admin: 09/10/23 09:03 Dose: 100 mg Trazodone HCl (Trazodone Hcl 50 Mg Tablet) 50 mg PO BEDTIME MRX1 PRN PRN Reason: Insomnia Allergies Allergies Allergy/AdvReac Type Severity Reaction Status Date / Time No Known Allergies Allergy Verified 09/04/23 23:31 Assessment & Plan Assessment & Plan (1) Acute psychosis: Status: Acute Code(s): F23 - Brief psychotic disorder (2) Schizophrenia: Status: Acute Code(s): F20.9 - Schizophrenia, unspecified (3) Alcohol use disorder: Status: Acute Code(s): F10.90 - Alcohol use, unspecified, uncomplicated (4) Cannabis use disorder: Status: Acute Code(s): F12.90 - Cannabis use, unspecified, uncomplicated Plan 27 yo male, presents with acute psychosis, ?schizophrenia, alcohol and cannabis use disorder. Pt is a very poor historian, focused on leaving the hospital and with intermittent resistance to medications. By hx, pt does well on regime which we will keep, holding the antidepressant while his psychotic sx are better managed. Will use lorazepam for detox with supportive MVI, folic acid and thiamine. Plan: Collateral Contact Olanzapine prn Lorazepam detox per CIWA MVI, Thiamine, Folic Acid Continue Risperdal Encourage alliance building add hydroxyzine 10mg BID for anxiety 09/08/23 continue treatmetn plan 09/09/23 Increase Risperdal to 3 mg bid Encouarge pt to remain in treatment and sign a conditional voluntary 09/10/23 Pt has signed a CV Continue current regime and plan of care Patient educated on: therapeutic strategies Guardian/Caregiver educated on: therapeutic strategies Informed Consent: understands and further education needed Reason for continued inpatient stay Substantial Risk for: rapid decompensation Time Spent With Patient Time: Total time managing care of this patient today ____ minutes.
[2023-09-10 18:43] VITALS: BP 123/90; PULSE 103; RESP 18; TEMP 36.7; O2SAT 97
[2023-09-11 07:45] VITALS: BP 133/85; PULSE 105; RESP 18; TEMP 36.5; O2SAT 99
[2023-09-11] MEDS: Thiamine HCL 100 MG TABLET PO (08:55)
[2023-09-11] MEDS: Multivitamin TABLET 1 TAB PO (08:55)
[2023-09-11] MEDS: hydrOXYzine HCL 10 MG TABLET PO ×2 (08:55→19:53)
[2023-09-11] MEDS: risperiDONE 3 MG TABLET PO ×2 (08:55→19:53)
[2023-09-11] MEDS: hydroCHLOROthiazide 12.5 MG TABLET PO (08:56)
[2023-09-11] MEDS: Cyanocobalamin (Vitamin B-12) 1,000 MCG TABLET 1000 MCG PO (08:56)
[2023-09-11] MEDS: Nicotine 14 MG PATCH.TD24 TRANSDERMA (08:56)
[2023-09-11] MEDS: Nicotine Polacrilex 2 MG GUM BUCCAL ×5 (09:23→22:21)
--- NOTE | 2023-09-11 14:40 | P.PNPSI_ITS ---
Subjective Subjective Date of Service: 09/11/23 Reason For Visit: acute psychosis Subjective Notes: Conditional Voluntary Healthcare Proxy: No Guardianship: No Medical Problems Affecting Mental Status: No Interim History: Episodes of intrusive sx-placed on one to one. Visable in milieu with moments of clarity, continues to respond to internal stimuli. Deferred discussion of [facility] due to active sx. Accepting of medications. Medication Compliance: Yes Side effects from medications: No Attending Groups: Intermittent Review of Systems Acute medical concerns: No Review of Systems Review of Systems Yes all other systems are reviewed and are negative Mental Status Exam Mental Status Exam Patient Appearance: Appropriate Patient Orientation: Person Level of Consciousness: Alert Patient Behavior: Guarded, Talkative, Suspicious, Distractible and Good Eye Contact Mood Description: Blunted Affect Description: Blunted Patient Cognition Impaired: Yes Ability to Follow Directions: Fair Speech Pattern: Spontaneous Speech and Soft-Spoken Memory Description: Remote Impaired Hallucinations: Auditory Delusions: Paranoid Ideation and Present Perceptual Disturbances: Hallucinations Thought Process: Illogical and Distracted Thought Content: positive for Flight of Ideas, positive for Circumstantial, positive for Preoccupation, positive for Loose Associations, positive for Thought Blocking, positive for Tangential and positive for Suicidal Ideation (denies) Depressive Symptoms: Difficulty Concentrating Judgement: Poor Diagnostics Vital Signs (24Hr): Vital Signs - 24 hr 09/10/23 18:43 09/11/23 07:45 Temperature 98.1 F 97.7 F Pulse Rate 103 H 105 H Respiratory Rate 18 18 Blood Pressure 123/90 H 133/85 Pulse Oximetry 97 99 Oxygen Delivery Method Room Air Room Air BMI result Body Mass Index 23.3 Labs 09/04/23 14:24 09/04/23 14:24 Medications Medications Current Medications Acetaminophen (Acetaminophen 325 Mg Tablet) 650 mg PO Q6H PRN PRN Reason: Headache/Pain Mild Scale (1-3) Al Hydroxide/Mg Hydroxide (Magnesium Hydrox/Alum Hydrox 30 Ml Oral.Susp) 30 ml PO Q6H PRN PRN Reason: Heartburn/Nausea Cyanocobalamin (Cyanocobalamin (Vitamin B-12) 1,000 Mcg Tablet) 1,000 mcg PO DAILY [facility] Last Admin: 09/11/23 08:56 Dose: 1,000 mcg Hydrochlorothiazide (Hydrochlorothiazide 12.5 Mg Tablet) 12.5 mg PO DAILY [facility]; Protocol Last Admin: 09/11/23 08:56 Dose: 12.5 mg Hydroxyzine HCl (Hydroxyzine Hcl 25 Mg Tablet) 25 mg PO Q6H PRN PRN Reason: Anxiety Last Admin: 09/09/23 15:55 Dose: 25 mg Hydroxyzine HCl (Hydroxyzine Hcl 10 Mg Tablet) 10 mg PO BID [facility] Last Admin: 09/11/23 08:55 Dose: 10 mg Lorazepam (Lorazepam 1 Mg Tablet) 1 mg PO Q2H PRN PRN Reason: ciwa 6-10 Lorazepam (Lorazepam 1 Mg Tablet) 2 mg PO Q2H PRN PRN Reason: ciwa 11+ Magnesium Hydroxide (Milk Of Magnesia 30 Ml Oral.Susp) 30 ml PO DAILY PRN PRN Reason: Constipation Multivitamins/Vitamin C (Multivitamin Tablet) 1 tab PO DAILY [facility] Last Admin: 09/11/23 08:55 Dose: 1 tab Nicotine (Nicotine 14 Mg Patch.Td24) 14 mg TRANSDERMA DAILY [facility] Last Admin: 09/11/23 08:56 Dose: 14 mg Nicotine Polacrilex (Nicotine Polacrilex 2 Mg Gum) 2 mg BUCCAL Q2H PRN PRN Reason: Nicotine Cravings Last Admin: 09/11/23 13:40 Dose: 2 mg Olanzapine (Olanzapine 5 Mg Tablet) 5 mg PO Q4H PRN PRN Reason: psychosis, daina, agitation Last Admin: 09/09/23 15:55 Dose: 5 mg Risperidone (Risperidone 3 Mg Tablet) 3 mg PO BID [facility] Last Admin: 09/11/23 08:55 Dose: 3 mg Thiamine HCl (Thiamine Hcl 100 Mg Tablet) 100 mg PO DAILY [facility] Last Admin: 09/11/23 08:55 Dose: 100 mg Trazodone HCl (Trazodone Hcl 50 Mg Tablet) 50 mg PO BEDTIME MRX1 PRN PRN Reason: Insomnia Allergies Allergies Allergy/AdvReac Type Severity Reaction Status Date / Time No Known Allergies Allergy Verified 09/04/23 23:31 Assessment & Plan Assessment & Plan (1) Acute psychosis: Status: Acute Code(s): F23 - Brief psychotic disorder (2) Schizophrenia: Status: Acute Code(s): F20.9 - Schizophrenia, unspecified (3) Alcohol use disorder: Status: Acute Code(s): F10.90 - Alcohol use, unspecified, uncomplicated (4) Cannabis use disorder: Status: Acute Code(s): F12.90 - Cannabis use, unspecified, uncomplicated Plan 27 yo male, presents with acute psychosis, ?schizophrenia, alcohol and cannabis use disorder. Pt is a very poor historian, focused on leaving the hospital and with intermittent resistance to medications. By hx, pt does well on regime which we will keep, holding the antidepressant while his psychotic sx are better managed. Will use lorazepam for detox with supportive MVI, folic acid and thiamine. Plan: Collateral Contact Olanzapine prn Lorazepam detox per CIWA MVI, Thiamine, Folic Acid Continue Risperdal Encourage alliance building add hydroxyzine 10mg BID for anxiety 09/08/23 continue treatmetn plan 09/09/23 Increase Risperdal to 3 mg bid Encouarge pt to remain in treatment and sign a conditional voluntary 09/10/23 Pt has signed a CV Continue current regime and plan of care 09/11/23 Begin one to one special due to intrusive sx. Continue regime Informed Consent: further education needed Reason for continued inpatient stay Substantial Risk for: rapid decompensation Time Spent With Patient Time: Total time managing care of this patient today ____ minutes.
[2023-09-11 18:00] VITALS: BP 131/82; PULSE 116; TEMP 36.9; O2SAT 98
[2023-09-11] MEDS: traZODone HCL 50 MG TABLET PO (19:53)
[2023-09-11] MEDS: OLANZapine 5 MG TABLET PO (19:53)
[2023-09-12 07:45] VITALS: BP 110/73; PULSE 104; RESP 18; TEMP 36.3; O2SAT 98
[2023-09-12] MEDS: hydroCHLOROthiazide 12.5 MG TABLET PO (09:31)
[2023-09-12] MEDS: hydrOXYzine HCL 10 MG TABLET PO ×2 (09:31→21:37)
[2023-09-12] MEDS: Thiamine HCL 100 MG TABLET PO (09:31)
[2023-09-12] MEDS: Multivitamin TABLET 1 TAB PO (09:31)
[2023-09-12] MEDS: risperiDONE 3 MG TABLET PO (09:31)
[2023-09-12] MEDS: Cyanocobalamin (Vitamin B-12) 1,000 MCG TABLET 1000 MCG PO (09:31)
[2023-09-12] MEDS: Nicotine 14 MG PATCH.TD24 TRANSDERMA (09:35)
[2023-09-12] MEDS: Nicotine Polacrilex 2 MG GUM BUCCAL ×2 (10:07→21:37)
[2023-09-12] MEDS: hydrOXYzine HCL 25 MG TABLET PO ×2 (10:55→16:59)
[2023-09-12] MEDS: OLANZapine 5 MG TABLET PO (10:55)
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
[2023-09-12 19:50] VITALS: BP 148/83; PULSE 114; RESP 18; TEMP 36.7; O2SAT 98
[2023-09-12] MEDS: Benztropine Mesylate 0.5 MG TABLET PO (21:37)
[2023-09-12] MEDS: HaloperidoL 5 MG TABLET PO (21:37)
[2023-09-12] MEDS: LORazepam 0.5 MG TABLET 0.25 MG PO (21:37)
[2023-09-13 08:01] VITALS: BP 122/77; PULSE 99; RESP 18; TEMP 36.4; O2SAT 98
[2023-09-13] MEDS: LORazepam 0.5 MG TABLET 0.25 MG PO ×2 (08:23→21:21)
[2023-09-13] MEDS: hydrOXYzine HCL 10 MG TABLET PO ×2 (08:23→21:22)
[2023-09-13] MEDS: Multivitamin TABLET 1 TAB PO (08:26)
[2023-09-13] MEDS: Thiamine HCL 100 MG TABLET PO (08:26)
[2023-09-13] MEDS: hydroCHLOROthiazide 12.5 MG TABLET PO (08:27)
[2023-09-13] MEDS: Benztropine Mesylate 0.5 MG TABLET PO ×2 (08:27→21:21)
[2023-09-13] MEDS: HaloperidoL 5 MG TABLET PO ×2 (08:28→21:21)
[2023-09-13] MEDS: Nicotine 14 MG PATCH.TD24 TRANSDERMA (08:31)
[2023-09-13 08:38] LABS: MANUAL DIFF FLAG NO
[2023-09-13 08:41] LABS: Basophils Absolute Auto 0.1 X10*3/uL (0.0-0.2); Basophils Percent Auto 0.5 % (0-2); Eosinophils Absolute Auto 0.3 X10*3/uL (0.0-0.4); Hematocrit 43.2 % (42.0-52.0); Hemoglobin 14.1 g/dl (14.0-18.0); Imm Gran Abs Auto 0.08 X10*3/uL (0.00-0.03); Imm Gran Pct Auto 0.8 % (0.0-0.4); Lymphocytes Absolute Auto 1.7 X10*3/uL (1.2-4.9); Lymphocytes Percent Auto 15.6 % (20-40); Mean Corpuscular HGB Conc 32.6 g/dl (31.0-36.0); Mean Corpuscular Hemoglobin 31.8 pg (27.0-33.0); Mean Corpuscular Volume 97.3 fL (80.0-98.0); Mean Platelet Volume 9.6 fL (9.4-12.4); Monocytes Absolute Auto 1.1 X10*3/uL (0.1-1.2); Monocytes Percent Auto 10.2 % (2-11); Neutrophils Absolute Auto 7.4 x10*3/uL (2.0-8.3); Neutrophils Percent Auto 69.9 % (45-73); Platelet Count 272 X10*3/uL (160-400); Red Blood Count 4.44 X10*6/uL (4.60-5.80); Red Cell Distribution Width 13.3 % (11.0-16.0); White Blood Count 10.6 X10*3/uL (4.8-10.8)
--- NOTE | 2023-09-13 09:48 | HO.PSYCHPN ---
Subjective Subjective Date of Service: 09/13/23 Reason For Visit: acute psychosis Subjective Notes: Conditional Voluntary Interim History: Reviewed with . Patient presents calm, cooperative. Does not present with intrusive behavior; 1:1 DC'd, placed on 5 minute safety checks. Patient reports feeling good today;he feels the medications are slowing me down .Pt states he does not recall going into other people's room's or any previous behavior from [facility]. denies SI/HI/VH/AH. Medication Compliance: Yes Side effects from medications: No Review of Systems Constitutional: Reports as per HPI Eyes: Reports as per HPI Reports as per HPI Cardiovascular: Reports as per HPI Respiratory: Reports as per HPI Gastrointestinal: Reports as per HPI Genitourinary: Reports as per HPI Musculoskeletal: Reports as per HPI Skin/Breast: Reports as per HPI Reports as per HPI Psychiatric: Reports as per HPI Endocrine: Reports as per HPI Hematologic/Lymphatic: Reports as per HPI Allergic/Immunologic: Reports as per HPI Mental Status Exam Mental Status Exam Narrative: Pt is alert and oriented; behavior is cooperative and calm; dressed in casual attire; mood is described as good ; eye contact appropriate; Speech is normal rate, volume and prosody and not pressured; no psychomotor agitation/retardation present; thought process is organized; Thought content is on tx; denies SI/HI. There is no evidence of perceptual disturbance. Diagnostics Vital Signs (24Hr): Vital Signs - 24 hr 09/12/23 19:50 09/13/23 08:01 Temperature 98.1 F 97.5 F Pulse Rate 114 H 99 Respiratory Rate 18 18 Blood Pressure 148/83 H 122/77 Pulse Oximetry 98 98 Oxygen Delivery Method Room Air Room Air BMI result Body Mass Index 23.3 Labs 09/13/23 08:26 09/04/23 14:24 Labs: Laboratory Results - last 48 hr 09/13/23 08:26 WBC 10.6 RBC 4.44 L Hgb 14.1 Hct 43.2 MCV 97.3 MCH 31.8 MCHC 32.6 RDW 13.3 Plt Count 272 MPV 9.6 Immature Gran % (Auto) 0.8 H Neut % (Auto) 69.9 Lymph % (Auto) 15.6 L [place] % (Auto) 10.2 Eos % (Auto) 3.0 Baso % (Auto) 0.5 Lymph # (Auto) 1.7 [place] # (Auto) 1.1 Eos # (Auto) 0.3 Baso # (Auto) 0.1 Abs Immat Gran (auto) 0.08 H Absolute Neuts (auto) 7.4 Absolute Nucleated RBC 0.000 Nucleated RBC % (auto) 0.0 Medications Medications Current Medications Acetaminophen (Acetaminophen 325 Mg Tablet) 650 mg PO Q6H PRN PRN Reason: Headache/Pain Mild Scale (1-3) Al Hydroxide/Mg Hydroxide (Magnesium Hydrox/Alum Hydrox 30 Ml Oral.Susp) 30 ml PO Q6H PRN PRN Reason: Heartburn/Nausea Benztropine Mesylate (Benztropine Mesylate 0.5 Mg Tablet) 0.5 mg PO BID [facility] Last Admin: 09/13/23 08:27 Dose: 0.5 mg Haloperidol (Haloperidol 5 Mg Tablet) 5 mg PO BID [facility] Last Admin: 09/13/23 08:28 Dose: 5 mg Haloperidol (Haloperidol 5 Mg Tablet) 5 mg PO BID PRN PRN Reason: Psychosis Hydrochlorothiazide (Hydrochlorothiazide 12.5 Mg Tablet) 12.5 mg PO DAILY [facility]; Protocol Last Admin: 09/13/23 08:27 Dose: 12.5 mg Hydroxyzine HCl (Hydroxyzine Hcl 25 Mg Tablet) 25 mg PO Q6H PRN PRN Reason: Anxiety Last Admin: 09/12/23 16:59 Dose: 25 mg Hydroxyzine HCl (Hydroxyzine Hcl 10 Mg Tablet) 10 mg PO BID [facility] Last Admin: 09/13/23 08:23 Dose: 10 mg Lorazepam (Lorazepam 1 Mg Tablet) 1 mg PO Q4H PRN PRN Reason: anxiety, agitation Lorazepam (Lorazepam 0.5 Mg Tablet) 0.25 mg PO BID [facility] Last Admin: 09/13/23 08:23 Dose: 0.25 mg Magnesium Hydroxide (Milk Of Magnesia 30 Ml Oral.Susp) 30 ml PO DAILY PRN PRN Reason: Constipation Multivitamins/Vitamin C (Multivitamin Tablet) 1 tab PO DAILY [facility] Last Admin: 09/13/23 08:26 Dose: 1 tab Nicotine (Nicotine 14 Mg Patch.Td24) 14 mg TRANSDERMA DAILY [facility] Last Admin: 09/13/23 08:31 Dose: 14 mg Nicotine Polacrilex (Nicotine Polacrilex 2 Mg Gum) 2 mg BUCCAL Q2H PRN PRN Reason: Nicotine Cravings Last Admin: 09/12/23 21:37 Dose: 2 mg Olanzapine (Olanzapine 5 Mg Tablet) 5 mg PO Q4H PRN PRN Reason: psychosis, daina, agitation Last Admin: 09/12/23 10:55 Dose: 5 mg Thiamine HCl (Thiamine Hcl 100 Mg Tablet) 100 mg PO DAILY [facility] Last Admin: 09/13/23 08:26 Dose: 100 mg Trazodone HCl (Trazodone Hcl 50 Mg Tablet) 50 mg PO BEDTIME MRX1 PRN PRN Reason: Insomnia Last Admin: 09/11/23 19:53 Dose: 50 mg Allergies Allergies Allergy/AdvReac Type Severity Reaction Status Date / Time No Known Allergies Allergy Verified 09/04/23 23:31 Assessment & Plan Assessment & Plan (1) Acute psychosis: Status: Acute Code(s): F23 - Brief psychotic disorder (2) Schizophrenia: Status: Acute Code(s): F20.9 - Schizophrenia, unspecified (3) Alcohol use disorder: Status: Acute Code(s): F10.90 - Alcohol use, unspecified, uncomplicated (4) Cannabis use disorder: Status: Acute Code(s): F12.90 - Cannabis use, unspecified, uncomplicated Plan 27 yo male, presents with acute psychosis, ?schizophrenia, alcohol and cannabis use disorder. Pt is a very poor historian, focused on leaving the hospital and with intermittent resistance to medications. By hx, pt does well on regime which we will keep, holding the antidepressant while his psychotic sx are better managed. Will use lorazepam for detox with supportive MVI, folic acid and thiamine. Plan: Collateral Contact Olanzapine prn Lorazepam detox per [facility] MVI, Thiamine, Folic Acid Continue Risperdal Encourage alliance building add hydroxyzine 10mg BID for anxiety 09/08/23 continue treatmetn plan 09/09/23 Increase Risperdal to 3 mg bid Encouarge pt to remain in treatment and sign a conditional voluntary 09/10/23 Pt has signed a CV Continue current regime and plan of care 09/11/23 Begin one to one special due to intrusive sx. Continue regime 09/12/23 Discontinue Risperdal Haldol 5 mg bid and bid prn psychosis Benztropine 0.5 mg bid Lorazepam 0.25 mg bid Lorazepam prn for anxiety, agitation Repeat CBCD 09/13 (hx of increase of WBC) Transfer to [facility]3 as pt's symptoms have angered his peers Continue one to one 09/13: Patient presents calm, cooperative. Does not present with intrusive behavior; 1:1 DC'd, placed on 5 minute safety checks. Patient reports feeling good today;he feels the medications are slowing me down .Pt states he does not recall going into other people's room's or any previous behavior from [facility]. denies SI/HI/VH/AH. Continue current tx plan. Consider [facility]RNE. Patient educated on: diagnosis, medication risk/benefits and therapeutic strategies Informed Consent: understands Reason for continued inpatient stay Substantial Risk for: med/psych decompensation Time Spent With Patient Time: Total time managing care of this patient today _30___ minutes.
[2023-09-13] MEDS: Nicotine Polacrilex 2 MG GUM BUCCAL ×3 (13:29→19:47)
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
[2023-09-13 19:46] VITALS: BP 138/83; PULSE 111; RESP 18; TEMP 36.8; O2SAT 97
[2023-09-14 08:07] VITALS: BP 119/75; PULSE 96; RESP 18; TEMP 36.9; O2SAT 98
[2023-09-14] MEDS: hydroCHLOROthiazide 12.5 MG TABLET PO (08:14)
[2023-09-14] MEDS: hydrOXYzine HCL 10 MG TABLET PO ×2 (08:14→20:09)
[2023-09-14] MEDS: Benztropine Mesylate 0.5 MG TABLET PO ×2 (08:14→20:09)
[2023-09-14] MEDS: Thiamine HCL 100 MG TABLET PO (08:14)
[2023-09-14] MEDS: Multivitamin TABLET 1 TAB PO (08:14)
[2023-09-14] MEDS: HaloperidoL 5 MG TABLET PO ×2 (08:14→20:09)
[2023-09-14] MEDS: LORazepam 0.5 MG TABLET 0.25 MG PO ×2 (08:14→20:08)
[2023-09-14] MEDS: Nicotine Polacrilex 2 MG GUM BUCCAL ×3 (08:21→19:02)
[2023-09-14] MEDS: Nicotine 14 MG PATCH.TD24 TRANSDERMA (08:29)
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
[2023-09-14 20:00] VITALS: BP 128/78; PULSE 98; RESP 18; TEMP 36.6; O2SAT 99
[2023-09-15] MEDS: hydrOXYzine HCL 10 MG TABLET PO ×2 (08:27→20:30)
[2023-09-15] MEDS: HaloperidoL 5 MG TABLET PO ×2 (08:27→20:29)
[2023-09-15] MEDS: hydroCHLOROthiazide 12.5 MG TABLET PO (08:27)
[2023-09-15] MEDS: Thiamine HCL 100 MG TABLET PO (08:27)
[2023-09-15] MEDS: Benztropine Mesylate 0.5 MG TABLET PO ×2 (08:27→20:29)
[2023-09-15] MEDS: Multivitamin TABLET 1 TAB PO (08:27)
[2023-09-15 08:28] VITALS: BP 103/57; PULSE 93; RESP 18; TEMP 2.3; TEMP 36.2; O2SAT 98
[2023-09-15] MEDS: LORazepam 0.5 MG TABLET 0.25 MG PO ×2 (08:28→20:29)
--- NOTE | 2023-09-15 16:09 | HO.PSYCHPN ---
Subjective Subjective Date of Service: 09/15/23 Reason For Visit: acute psychosis Interim History: Reviewed with RN. Patient remains on 1:1. When asked if he understands why, he says he doesn't. He just says I want to go home. He is isolative and sleeps during the day. He is withdrawn. He denies any symptoms of mood disturbance, anxiety or psychosis. Guarded. He is compliant with medications. No SI. Review of Systems Review of Systems Constitutional : No Weight loss, No Fever, No Chills, No Fatigue, No Malaise ENT/Mouth : No sore throat, No Rhinorrhea Eyes: No Eye Pain, No Swelling, No Redness Cardiovascular : No Chest Pain, No SOB, No Dyspnea on Exertion, No Orthopnea, No Edema, No Palpitations Respiratory : No Cough, No Sputum, No Wheezing Gastrointestinal : No Nausea, No Vomiting, No Diarrhea, No Constipation, No abdominal Pain, No Hematochezia, No Melena Genitourinary : No Dysuria, No Urinary Frequency, No Hematuria, Musculoskeletal : No joint pain, No Myalgias, No Joint Swelling Skin : No Skin Lesions, No rash Neuro : No Weakness, No Numbness, No Dizziness, No Headache Psych : No Anxiety/Panic, No Depression, + hallucinations, No SI/HI All other systems reviewed and are negative Yes all other systems are reviewed and are negative and Unobtainable due to mental status Constitutional: Reports as per HPI Eyes: Reports as per HPI Reports as per HPI Cardiovascular: Reports as per HPI Respiratory: Reports as per HPI Gastrointestinal: Reports as per HPI Genitourinary: Reports as per HPI Musculoskeletal: Reports as per HPI Skin/Breast: Reports as per HPI Reports as per HPI Psychiatric: Reports as per HPI Endocrine: Reports as per HPI Hematologic/Lymphatic: Reports as per HPI Allergic/Immunologic: Reports as per HPI Mental Status Exam Mental Status Exam Narrative: Pt is alert and oriented; behavior is cooperative and calm; dressed in casual attire; mood is described as good ; eye contact appropriate; Speech is normal rate, volume and prosody and not pressured; no psychomotor agitation/retardation present; thought process is organized; Thought content is on tx; denies SI/HI. There is no evidence of perceptual disturbance. Patient Appearance: Appropriate Patient Orientation: Person and Place Level of Consciousness: Awake and Alert Patient Behavior: Guarded, Talkative, Cooperative, Passive, Suspicious, Wandering, Anxious, Distractible, Confused (at times) and Good Eye Contact Mood Description: Blunted Affect Description: Blunted Patient Cognition Impaired: No Ability to Follow Directions: Fair Speech Pattern: Spontaneous Speech, Soft-Spoken and Delayed Memory Description: Remote Impaired Diagnostics Vital Signs (24Hr): Vital Signs - 24 hr 09/14/23 20:00 09/15/23 08:28 Temperature 97.9 F 36.2 F L Pulse Rate 98 93 Respiratory Rate 18 18 Blood Pressure 128/78 103/57 L Pulse Oximetry 99 98 Oxygen Delivery Method Room Air BMI result Body Mass Index 23.3 Labs 09/13/23 08:26 09/04/23 14:24 Medications Medications Current Medications Acetaminophen (Acetaminophen 325 Mg Tablet) 650 mg PO Q6H PRN PRN Reason: Headache/Pain Mild Scale (1-3) Al Hydroxide/Mg Hydroxide (Magnesium Hydrox/Alum Hydrox 30 Ml Oral.Susp) 30 ml PO Q6H PRN PRN Reason: Heartburn/Nausea Benztropine Mesylate (Benztropine Mesylate 0.5 Mg Tablet) 0.5 mg PO BID [facility] Last Admin: 09/15/23 08:27 Dose: 0.5 mg Haloperidol (Haloperidol 5 Mg Tablet) 5 mg PO BID [facility] Last Admin: 09/15/23 08:27 Dose: 5 mg Haloperidol (Haloperidol 5 Mg Tablet) 5 mg PO BID PRN PRN Reason: Psychosis Hydrochlorothiazide (Hydrochlorothiazide 12.5 Mg Tablet) 12.5 mg PO DAILY [facility]; Protocol Last Admin: 09/15/23 08:27 Dose: 12.5 mg Hydroxyzine HCl (Hydroxyzine Hcl 25 Mg Tablet) 25 mg PO Q6H PRN PRN Reason: Anxiety Last Admin: 09/12/23 16:59 Dose: 25 mg Hydroxyzine HCl (Hydroxyzine Hcl 10 Mg Tablet) 10 mg PO BID [facility] Last Admin: 09/15/23 08:27 Dose: 10 mg Lorazepam (Lorazepam 1 Mg Tablet) 1 mg PO Q4H PRN PRN Reason: anxiety, agitation Lorazepam (Lorazepam 0.5 Mg Tablet) 0.25 mg PO BID [facility] Last Admin: 09/15/23 08:28 Dose: 0.25 mg Magnesium Hydroxide (Milk Of Magnesia 30 Ml Oral.Susp) 30 ml PO DAILY PRN PRN Reason: Constipation Multivitamins/Vitamin C (Multivitamin Tablet) 1 tab PO DAILY [facility] Last Admin: 09/15/23 08:27 Dose: 1 tab Nicotine (Nicotine 14 Mg Patch.Td24) 14 mg TRANSDERMA DAILY [facility] Last Admin: 09/15/23 08:36 Dose: Not Given Nicotine Polacrilex (Nicotine Polacrilex 2 Mg Gum) 2 mg BUCCAL Q2H PRN PRN Reason: Nicotine Cravings Last Admin: 09/14/23 19:02 Dose: 2 mg Olanzapine (Olanzapine 5 Mg Tablet) 5 mg PO Q4H PRN PRN Reason: psychosis, daina, agitation Last Admin: 09/12/23 10:55 Dose: 5 mg Thiamine HCl (Thiamine Hcl 100 Mg Tablet) 100 mg PO DAILY [facility] Last Admin: 09/15/23 08:27 Dose: 100 mg Trazodone HCl (Trazodone Hcl 50 Mg Tablet) 50 mg PO BEDTIME MRX1 PRN PRN Reason: Insomnia Last Admin: 09/11/23 19:53 Dose: 50 mg Allergies Allergies Allergy/AdvReac Type Severity Reaction Status Date / Time No Known Allergies Allergy Verified 09/04/23 23:31 Assessment & Plan Assessment & Plan (1) Acute psychosis: Status: Acute Code(s): F23 - Brief psychotic disorder (2) Schizophrenia: Status: Acute Code(s): F20.9 - Schizophrenia, unspecified (3) Alcohol use disorder: Status: Acute Code(s): F10.90 - Alcohol use, unspecified, uncomplicated (4) Cannabis use disorder: Status: Acute Code(s): F12.90 - Cannabis use, unspecified, uncomplicated Plan 27 yo male, presents with acute psychosis, ?schizophrenia, alcohol and cannabis use disorder. Pt is a very poor historian, focused on leaving the hospital and with intermittent resistance to medications. By hx, pt does well on regime which we will keep, holding the antidepressant while his psychotic sx are better managed. Will use lorazepam for detox with supportive MVI, folic acid and thiamine. Plan: Collateral Contact Olanzapine prn Lorazepam detox per [facility] MVI, Thiamine, Folic Acid Continue Risperdal Encourage alliance building add hydroxyzine 10mg BID for anxiety 09/08/23 continue treatmetn plan 09/09/23 Increase Risperdal to 3 mg bid Encouarge pt to remain in treatment and sign a conditional voluntary 09/10/23 Pt has signed a CV Continue current regime and plan of care 09/11/23 Begin one to one special due to intrusive sx. Continue regime 09/12/23 Discontinue Risperdal Haldol 5 mg bid and bid prn psychosis Benztropine 0.5 mg bid Lorazepam 0.25 mg bid Lorazepam prn for anxiety, agitation Repeat CBCD 09/13 (hx of increase of WBC) Transfer to M3 as pt's symptoms have angered his peers Continue one to one 09/13: Patient presents calm, cooperative. Does not present with intrusive behavior; 1:1 DC'd, placed on 5 minute safety checks. Patient reports feeling good today;he feels the medications are slowing me down .Pt states he does not recall going into other people's room's or any previous behavior from M5. denies SI/HI/VH/AH. Continue current tx plan. Consider BYRNE. 09/14:Continue current management and treatment plan. 09/15: Continue current management and treatment plan. Reason for continued inpatient stay Substantial Risk for: inability to function and rapid decompensation Time Spent With Patient Time: Total time managing care of this patient today ____ minutes.
[2023-09-15] MEDS: Nicotine Polacrilex 2 MG GUM BUCCAL (18:51)
[2023-09-15 19:55] VITALS: BP 127/83; PULSE 94; RESP 18; TEMP 36.7; O2SAT 99
[2023-09-15] MEDS: traZODone HCL 50 MG TABLET PO (20:29)
--- NOTE | 2023-09-16 09:21 | P.PNPSI_ITS ---
Subjective Subjective Date of Service: 09/16/23 Reason For Visit: acute psychosis Subjective Notes: Conditional Voluntary Interim History: Reviewed in team and . Patient presents guarded during 1:1. T/W asked pt how he was feeling today, pt replied, I don't know what that means . Pt reports he feels some confusion but was not able to elaborate. Pt stated, I don't want to make eye contact with any females. I don't know why anyone would care if they have a boyfriend or . He states he does not recall touching any other patients. Continues on 1:1. He reports sleeping well. Denies SI/HI/VH/AH. T/W spoke with pt's parents when they visited pt today; mother reported patient appears improved since the last time she visited patient a few days ago. Medication Compliance: Yes Side effects from medications: No Attending Groups: No Review of Systems Constitutional: Reports as per HPI Eyes: Reports as per HPI Reports as per HPI Cardiovascular: Reports as per HPI Respiratory: Reports as per HPI Gastrointestinal: Reports as per HPI Genitourinary: Reports as per HPI Musculoskeletal: Reports as per HPI Skin/Breast: Reports as per HPI Reports as per HPI Psychiatric: Reports as per HPI Endocrine: Reports as per HPI Hematologic/Lymphatic: Reports as per HPI Allergic/Immunologic: Reports as per HPI Mental Status Exam Mental Status Exam Narrative: Pt behavior is guarded, calm; dressed in casual attire; eye contact avoidant; Speech is normal rate, volume and prosody and not pressured; no psychomotor agitation/retardation present; presents with some confusion; denies SI/HI. There is no evidence of perceptual disturbance. Patients insight and judgment are poor. Diagnostics Vital Signs (24Hr): Vital Signs - 24 hr 09/15/23 19:55 Temperature 98.1 F Pulse Rate 94 Respiratory Rate 18 Blood Pressure 127/83 Pulse Oximetry 99 Oxygen Delivery Method Room Air BMI result Body Mass Index 23.3 Labs 09/13/23 08:26 09/04/23 14:24 Medications Medications Current Medications Acetaminophen (Acetaminophen 325 Mg Tablet) 650 mg PO Q6H PRN PRN Reason: Headache/Pain Mild Scale (1-3) Al Hydroxide/Mg Hydroxide (Magnesium Hydrox/Alum Hydrox 30 Ml Oral.Susp) 30 ml PO Q6H PRN PRN Reason: Heartburn/Nausea Benztropine Mesylate (Benztropine Mesylate 0.5 Mg Tablet) 0.5 mg PO BID [facility] Last Admin: 09/15/23 20:29 Dose: 0.5 mg Haloperidol (Haloperidol 5 Mg Tablet) 5 mg PO BID [facility] Last Admin: 09/15/23 20:29 Dose: 5 mg Haloperidol (Haloperidol 5 Mg Tablet) 5 mg PO BID PRN PRN Reason: Psychosis Hydrochlorothiazide (Hydrochlorothiazide 12.5 Mg Tablet) 12.5 mg PO DAILY [facility]; Protocol Last Admin: 09/15/23 08:27 Dose: 12.5 mg Hydroxyzine HCl (Hydroxyzine Hcl 25 Mg Tablet) 25 mg PO Q6H PRN PRN Reason: Anxiety Last Admin: 09/12/23 16:59 Dose: 25 mg Hydroxyzine HCl (Hydroxyzine Hcl 10 Mg Tablet) 10 mg PO BID [facility] Last Admin: 09/15/23 20:30 Dose: 10 mg Lorazepam (Lorazepam 1 Mg Tablet) 1 mg PO Q4H PRN PRN Reason: anxiety, agitation Lorazepam (Lorazepam 0.5 Mg Tablet) 0.25 mg PO BID [facility] Last Admin: 09/15/23 20:29 Dose: 0.25 mg Magnesium Hydroxide (Milk Of Magnesia 30 Ml Oral.Susp) 30 ml PO DAILY PRN PRN Reason: Constipation Multivitamins/Vitamin C (Multivitamin Tablet) 1 tab PO DAILY [facility] Last Admin: 09/15/23 08:27 Dose: 1 tab Nicotine (Nicotine 14 Mg Patch.Td24) 14 mg TRANSDERMA DAILY [facility] Last Admin: 09/15/23 08:36 Dose: Not Given Nicotine Polacrilex (Nicotine Polacrilex 2 Mg Gum) 2 mg BUCCAL Q2H PRN PRN Reason: Nicotine Cravings Last Admin: 09/15/23 18:51 Dose: 2 mg Olanzapine (Olanzapine 5 Mg Tablet) 5 mg PO Q4H PRN PRN Reason: psychosis, daina, agitation Last Admin: 09/12/23 10:55 Dose: 5 mg Thiamine HCl (Thiamine Hcl 100 Mg Tablet) 100 mg PO DAILY [facility] Last Admin: 09/15/23 08:27 Dose: 100 mg Trazodone HCl (Trazodone Hcl 50 Mg Tablet) 50 mg PO BEDTIME MRX1 PRN PRN Reason: Insomnia Last Admin: 09/15/23 20:29 Dose: 50 mg Allergies Allergies Allergy/AdvReac Type Severity Reaction Status Date / Time No Known Allergies Allergy Verified 09/04/23 23:31 Assessment & Plan Assessment & Plan (1) Acute psychosis: Status: Acute Code(s): F23 - Brief psychotic disorder (2) Schizophrenia: Status: Acute Code(s): F20.9 - Schizophrenia, unspecified (3) Alcohol use disorder: Status: Acute Code(s): F10.90 - Alcohol use, unspecified, uncomplicated (4) Cannabis use disorder: Status: Acute Code(s): F12.90 - Cannabis use, unspecified, uncomplicated Plan 27 yo male, presents with acute psychosis, ?schizophrenia, alcohol and cannabis use disorder. Pt is a very poor historian, focused on leaving the hospital and with intermittent resistance to medications. By hx, pt does well on regime which we will keep, holding the antidepressant while his psychotic sx are better managed. Will use lorazepam for detox with supportive MVI, folic acid and thiamine. Plan: Collateral Contact Olanzapine prn Lorazepam detox per [facility] MVI, Thiamine, Folic Acid Continue Risperdal Encourage alliance building add hydroxyzine 10mg BID for anxiety 09/08/23 continue treatmetn plan 09/09/23 Increase Risperdal to 3 mg bid Encouarge pt to remain in treatment and sign a conditional voluntary 09/10/23 Pt has signed a CV Continue current regime and plan of care 09/11/23 Begin one to one special due to intrusive sx. Continue regime 09/12/23 Discontinue Risperdal Haldol 5 mg bid and bid prn psychosis Benztropine 0.5 mg bid Lorazepam 0.25 mg bid Lorazepam prn for anxiety, agitation Repeat CBCD 09/13 (hx of increase of WBC) Transfer to M3 as pt's symptoms have angered his peers Continue one to one 09/13: Patient presents calm, cooperative. Does not present with intrusive behavior; 1:1 DC'd, placed on 5 minute safety checks. Patient reports feeling good today;he feels the medications are slowing me down .Pt states he does not recall going into other people's room's or any previous behavior from M5. denies SI/HI/VH/AH. Continue current tx plan. Consider BYRNE. 09/14:Continue current management and treatment plan. 09/15: Continue current management and treatment plan. 09/16: Patient presents guarded during 1:1. T/W asked pt how he was feeling today, pt replied, I don't know what that means . Pt reports he feels some confusion but was not able to elaborate. Pt stated, I don't want to make eye contact with any females. I don't know why anyone would care if they have a boyfriend or . He states he does not recall touching any other patients. Continues on 1:1. He reports sleeping well. Denies SI/HI/VH/AH. T/W spoke with pt's parents when they visited pt today; mother reported patient appears improved since the last time she visited patient a few days ago. Patient educated on: diagnosis and medication risk/benefits Guardian/Caregiver educated on: diagnosis, medication risk/benefits and therapeutic strategies Informed Consent: understands Reason for continued inpatient stay Substantial Risk for: med/psych decompensation Time Spent With Patient Time: Total time managing care of this patient today _30___ minutes.
[2023-09-16 10:20] VITALS: BP 109/72; PULSE 100; RESP 16; TEMP 37.6; O2SAT 97
[2023-09-16] MEDS: HaloperidoL 5 MG TABLET PO ×2 (10:29→20:44)
[2023-09-16] MEDS: Thiamine HCL 100 MG TABLET PO (10:29)
[2023-09-16] MEDS: Benztropine Mesylate 0.5 MG TABLET PO ×2 (10:29→20:44)
[2023-09-16] MEDS: hydroCHLOROthiazide 12.5 MG TABLET PO (10:29)
[2023-09-16] MEDS: Multivitamin TABLET 1 TAB PO (10:29)
[2023-09-16] MEDS: hydrOXYzine HCL 10 MG TABLET PO ×2 (10:29→20:44)
[2023-09-16] MEDS: LORazepam 0.5 MG TABLET 0.25 MG PO ×2 (10:30→20:44)
[2023-09-16] MEDS: OLANZapine 5 MG TABLET PO ×2 (14:45→23:55)
[2023-09-16 15:35] LABS: MANUAL DIFF FLAG NO
[2023-09-16 15:57] LABS: Anion Gap 12 (12-20); Basophils Absolute Auto 0.1 X10*3/uL (0.0-0.2); Basophils Percent Auto 0.7 % (0-2); Blood Urea Nitrogen 16 mg/dL (9-16); Calcium 9.3 mg/dL (8.4-10.2); Carbon Dioxide 27 mmol/L (22-29); Chloride 102 mmol/L (96-108); Creatinine Clr Calc Pharmacy 114.2; Eosinophils Absolute Auto 0.3 X10*3/uL (0.0-0.4); Eosinophils Percent Auto 2.5 % (0-4); Estimated Glomerular Filt Rate > 60; Glucose Random 136 mg/dL (60-115); Hematocrit 40.8 % (42.0-52.0); Hemoglobin 13.6 g/dl (14.0-18.0); Imm Gran Abs Auto 0.11 X10*3/uL (0.00-0.03); Imm Gran Pct Auto 1.1 % (0.0-0.4); Lymphocytes Absolute Auto 2.4 X10*3/uL (1.2-4.9); Lymphocytes Percent Auto 24.2 % (20-40); Mean Corpuscular HGB Conc 33.3 g/dl (31.0-36.0); Mean Corpuscular Hemoglobin 32.1 pg (27.0-33.0); Mean Corpuscular Volume 96.2 fL (80.0-98.0); Mean Platelet Volume 9.8 fL (9.4-12.4); Monocytes Absolute Auto 1.2 X10*3/uL (0.1-1.2); Neutrophils Absolute Auto 5.9 x10*3/uL (2.0-8.3); Neutrophils Percent Auto 59.5 % (45-73); Platelet Count 307 X10*3/uL (160-400); Potassium 3.8 mmol/L (3.3-5.1); Red Blood Count 4.24 X10*6/uL (4.60-5.80); Red Cell Distribution Width 13.4 % (11.0-16.0); Sodium 137 mmol/L (135-145)
[2023-09-16 19:45] VITALS: BP 121/74; PULSE 92; RESP 18; TEMP 36.7; O2SAT 99
[2023-09-16] MEDS: Nicotine Polacrilex 2 MG GUM BUCCAL (20:52)
[2023-09-16] MEDS: traZODone HCL 50 MG TABLET PO (23:55)
--- NOTE | 2023-09-17 00:58 | PC.NURSE ---
Kris remains on 1:1 for safety r/t inappropriate interactions with female peers. patient's responses are vague with poor eye contact. he denies si/hi/avh but appears to have racing thoughts and to be responding to internal stimuli. no behavioral concerns noted. patient has been visible but has not been interacting with staff or peers. continue to monitor for safety, continue Plan of Care
[2023-09-17 06:00] VITALS: BP 105/60; PULSE 101; TEMP 36.7; O2SAT 97
[2023-09-17] MEDS: hydroCHLOROthiazide 12.5 MG TABLET PO (08:55)
[2023-09-17] MEDS: Nicotine 14 MG PATCH.TD24 TRANSDERMA (08:55)
[2023-09-17] MEDS: LORazepam 0.5 MG TABLET 0.25 MG PO (08:55)
[2023-09-17] MEDS: HaloperidoL 5 MG TABLET PO (08:55)
[2023-09-17] MEDS: Benztropine Mesylate 0.5 MG TABLET PO (08:55)
[2023-09-17] MEDS: hydrOXYzine HCL 10 MG TABLET PO ×2 (08:56→20:20)
[2023-09-17] MEDS: Nicotine Polacrilex 2 MG GUM BUCCAL ×2 (09:54→17:02)
--- NOTE | 2023-09-17 10:04 | HO.PSYCHPN ---
Subjective Subjective Date of Service: 09/17/23 Reason For Visit: acute psychosis Subjective Notes: Conditional Voluntary Interim History: Reviewed in team and . T/W and met with patient in unit office. Patient presents guarded during 1:1. Patient reports feeling good today; pt stated, I don't remember why I'm in here, the police showed up at my door . Pt was asked why he feels the need to touch other people; pt stated, because they are cute. Can White people touch Asians? because I have a niece and nephew who are White and no one better touch them . Patient was educated regarding consent however he appeared confused and stated, can Black people touch White people? . denies SI/HI/VH/AH. Haldol increased to 10mg PO BID. Medication Compliance: Yes Side effects from medications: No Attending Groups: No Review of Systems Constitutional: Reports as per HPI Eyes: Reports as per HPI Reports as per HPI Cardiovascular: Reports as per HPI Respiratory: Reports as per HPI Gastrointestinal: Reports as per HPI Genitourinary: Reports as per HPI Musculoskeletal: Reports as per HPI Skin/Breast: Reports as per HPI Reports as per HPI Psychiatric: Reports as per HPI Endocrine: Reports as per HPI Hematologic/Lymphatic: Reports as per HPI Allergic/Immunologic: Reports as per HPI Mental Status Exam Mental Status Exam Narrative: Pt behavior is guarded, calm; dressed in casual attire; eye contact avoidant; Speech is normal rate, volume and prosody and not pressured; no psychomotor agitation/retardation present; presents with some confusion; denies SI/HI. There is no evidence of perceptual disturbance. Patients insight and judgment are poor. Diagnostics Vital Signs (24Hr): Vital Signs - 24 hr 09/16/23 10:20 09/16/23 19:45 09/17/23 06:00 Temperature 99.7 F 98.1 F 98.1 F Pulse Rate 100 92 101 H Respiratory Rate 16 18 Blood Pressure 109/72 121/74 105/60 Pulse Oximetry 97 99 97 Oxygen Delivery Method Room Air Room Air Room Air BMI result Body Mass Index 23.3 Labs 09/16/23 15:30 09/16/23 15:30 Labs: Laboratory Results - last 48 hr 09/16/23 15:30 WBC 10.0 RBC 4.24 L Hgb 13.6 L Hct 40.8 L MCV 96.2 MCH 32.1 MCHC 33.3 RDW 13.4 Plt Count 307 MPV 9.8 Immature Gran % (Auto) 1.1 H Neut % (Auto) 59.5 Lymph % (Auto) 24.2 [place] % (Auto) 12.0 H Eos % (Auto) 2.5 Baso % (Auto) 0.7 Lymph # (Auto) 2.4 [place] # (Auto) 1.2 Eos # (Auto) 0.3 Baso # (Auto) 0.1 Abs Immat Gran (auto) 0.11 H Absolute Neuts (auto) 5.9 Absolute Nucleated RBC 0.000 Nucleated RBC % (auto) 0.0 Sodium 137 Potassium 3.8 Chloride 102 Carbon Dioxide 27 Anion Gap 12 BUN 16 Creatinine 0.83 Estim Creat Clear Calc 114.2 Estimated GFR > 60 Random Glucose 136 H Calcium 9.3 Ammonia Cancelled Medications Medications Current Medications Acetaminophen (Acetaminophen 325 Mg Tablet) 650 mg PO Q6H PRN PRN Reason: Headache/Pain Mild Scale (1-3) Al Hydroxide/Mg Hydroxide (Magnesium Hydrox/Alum Hydrox 30 Ml Oral.Susp) 30 ml PO Q6H PRN PRN Reason: Heartburn/Nausea Benztropine Mesylate (Benztropine Mesylate 0.5 Mg Tablet) 0.5 mg PO BID [facility] Last Admin: 09/17/23 08:55 Dose: 0.5 mg Haloperidol (Haloperidol 5 Mg Tablet) 5 mg PO BID [facility] Last Admin: 09/17/23 08:55 Dose: 5 mg Haloperidol (Haloperidol 5 Mg Tablet) 5 mg PO BID PRN PRN Reason: Psychosis Hydrochlorothiazide (Hydrochlorothiazide 12.5 Mg Tablet) 12.5 mg PO DAILY [facility]; Protocol Last Admin: 09/17/23 08:55 Dose: 12.5 mg Hydroxyzine HCl (Hydroxyzine Hcl 25 Mg Tablet) 25 mg PO Q6H PRN PRN Reason: Anxiety Last Admin: 09/12/23 16:59 Dose: 25 mg Hydroxyzine HCl (Hydroxyzine Hcl 10 Mg Tablet) 10 mg PO BID [facility] Last Admin: 09/17/23 08:56 Dose: 10 mg Lorazepam (Lorazepam 1 Mg Tablet) 1 mg PO Q4H PRN PRN Reason: anxiety, agitation Lorazepam (Lorazepam 0.5 Mg Tablet) 0.25 mg PO BID [facility] Last Admin: 09/17/23 08:55 Dose: 0.25 mg Magnesium Hydroxide (Milk Of Magnesia 30 Ml Oral.Susp) 30 ml PO DAILY PRN PRN Reason: Constipation Nicotine (Nicotine 14 Mg Patch.Td24) 14 mg TRANSDERMA DAILY [facility] Last Admin: 09/17/23 08:55 Dose: 14 mg Nicotine Polacrilex (Nicotine Polacrilex 2 Mg Gum) 2 mg BUCCAL Q2H PRN PRN Reason: Nicotine Cravings Last Admin: 09/17/23 09:54 Dose: 2 mg Olanzapine (Olanzapine 5 Mg Tablet) 5 mg PO Q4H PRN PRN Reason: psychosis, daina, agitation Last Admin: 09/16/23 23:55 Dose: 5 mg Trazodone HCl (Trazodone Hcl 50 Mg Tablet) 50 mg PO BEDTIME MRX1 PRN PRN Reason: Insomnia Last Admin: 09/16/23 23:55 Dose: 50 mg Allergies Allergies Allergy/AdvReac Type Severity Reaction Status Date / Time No Known Allergies Allergy Verified 09/04/23 23:31 Assessment & Plan Assessment & Plan (1) Acute psychosis: Status: Acute Code(s): F23 - Brief psychotic disorder (2) Schizophrenia: Status: Acute Code(s): F20.9 - Schizophrenia, unspecified (3) Alcohol use disorder: Status: Acute Code(s): F10.90 - Alcohol use, unspecified, uncomplicated (4) Cannabis use disorder: Status: Acute Code(s): F12.90 - Cannabis use, unspecified, uncomplicated Plan 27 yo male, presents with acute psychosis, ?schizophrenia, alcohol and cannabis use disorder. Pt is a very poor historian, focused on leaving the hospital and with intermittent resistance to medications. By hx, pt does well on regime which we will keep, holding the antidepressant while his psychotic sx are better managed. Will use lorazepam for detox with supportive MVI, folic acid and thiamine. Plan: Collateral Contact Olanzapine prn Lorazepam detox per [facility] MVI, Thiamine, Folic Acid Continue Risperdal Encourage alliance building add hydroxyzine 10mg BID for anxiety 09/08/23 continue treatmetn plan 09/09/23 Increase Risperdal to 3 mg bid Encouarge pt to remain in treatment and sign a conditional voluntary 09/10/23 Pt has signed a CV Continue current regime and plan of care 09/11/23 Begin one to one special due to intrusive sx. Continue regime 09/12/23 Discontinue Risperdal Haldol 5 mg bid and bid prn psychosis Benztropine 0.5 mg bid Lorazepam 0.25 mg bid Lorazepam prn for anxiety, agitation Repeat CBCD 09/13 (hx of increase of WBC) Transfer to M3 as pt's symptoms have angered his peers Continue one to one 09/13: Patient presents calm, cooperative. Does not present with intrusive behavior; 1:1 DC'd, placed on 5 minute safety checks. Patient reports feeling good today;he feels the medications are slowing me down .Pt states he does not recall going into other people's room's or any previous behavior from M5. denies SI/HI/VH/AH. Continue current tx plan. Consider BYRNE. 09/14:Continue current management and treatment plan. 09/15: Continue current management and treatment plan. 09/16: Patient presents guarded during 1:1. T/W asked pt how he was feeling today, pt replied, I don't know what that means . Pt reports he feels some confusion but was not able to elaborate. Pt stated, I don't want to make eye contact with any females. I don't know why anyone would care if they have a boyfriend or . He states he does not recall touching any other patients. Continues on 1:1. He reports sleeping well. Denies SI/HI/VH/AH. T/W spoke with pt's parents when they visited pt today; mother reported patient appears improved since the last time she visited patient a few days ago. 09/17: T/W and met with patient in unit office. Patient presents guarded during 1:1. Patient reports feeling good today; pt stated, I don't remember why I'm in here, the police showed up at my door . Pt was asked why he feels the need to touch other people; pt stated, because they are cute. Can White people touch Asians? because I have a niece and nephew who are White and no one better touch them . Patient was educated regarding consent however he appeared confused and stated, can Black people touch White people? . denies SI/HI/VH/AH. Haldol increased to 10mg PO BID. if no improvement in thought process, will consider starting zyprexa and tapering haldol. Patient educated on: medication risk/benefits Informed Consent: understands and further education needed Reason for continued inpatient stay Substantial Risk for: med/psych decompensation Time Spent With Patient Time: Total time managing care of this patient today _30___ minutes.
[2023-09-17] MEDS: HaloperidoL 5 MG TABLET 10 MG PO (20:20)
[2023-09-17] MEDS: Benztropine Mesylate 1 MG TABLET PO (20:20)
[2023-09-17 20:30] VITALS: BP 136/80; PULSE 106; RESP 18; TEMP 36.8; O2SAT 98
[2023-09-18 07:50] VITALS: BP 82/47; PULSE 77; RESP 16; TEMP 36.9; O2SAT 96
--- NOTE | 2023-09-18 08:40 | P.PNPSI_ITS ---
Subjective Subjective Date of Service: 09/18/23 Reason For Visit: acute psychosis Subjective Notes: Conditional Voluntary Interim History: Reviewed in team and . Patient presents guarded during 1:1. Patient reports feeling okay today. Pt reports he has been keeping to himself; continues to present with some confusion. Continues on 1:1 safety checks. denies SI/HI/VH/AH. denies any side effects from increase in Haldol. Medication Compliance: Yes Side effects from medications: No Attending Groups: No Review of Systems Constitutional: Reports as per HPI Eyes: Reports as per HPI Reports as per HPI Cardiovascular: Reports as per HPI Respiratory: Reports as per HPI Gastrointestinal: Reports as per HPI Genitourinary: Reports as per HPI Musculoskeletal: Reports as per HPI Skin/Breast: Reports as per HPI Reports as per HPI Psychiatric: Reports as per HPI Endocrine: Reports as per HPI Hematologic/Lymphatic: Reports as per HPI Allergic/Immunologic: Reports as per HPI Mental Status Exam Mental Status Exam Narrative: Pt behavior is guarded, calm; dressed in casual attire; eye contact avoidant; Speech is normal rate, volume and prosody and not pressured; no psychomotor agitation/retardation present; presents with some confusion; denies SI/HI. There is no evidence of perceptual disturbance. Patients insight and judgment are poor. Diagnostics Vital Signs (24Hr): Vital Signs - 24 hr 09/17/23 20:30 09/18/23 07:50 Temperature 98.3 F 98.4 F Pulse Rate 106 H 77 Respiratory Rate 18 16 Blood Pressure 136/80 82/47 L Pulse Oximetry 98 96 Oxygen Delivery Method Room Air Room Air BMI result Body Mass Index 23.3 Labs 09/16/23 15:30 09/16/23 15:30 Labs: Laboratory Results - last 48 hr 09/16/23 15:30 WBC 10.0 RBC 4.24 L Hgb 13.6 L Hct 40.8 L MCV 96.2 MCH 32.1 MCHC 33.3 RDW 13.4 Plt Count 307 MPV 9.8 Immature Gran % (Auto) 1.1 H Neut % (Auto) 59.5 Lymph % (Auto) 24.2 [place] % (Auto) 12.0 H Eos % (Auto) 2.5 Baso % (Auto) 0.7 Lymph # (Auto) 2.4 [place] # (Auto) 1.2 Eos # (Auto) 0.3 Baso # (Auto) 0.1 Abs Immat Gran (auto) 0.11 H Absolute Neuts (auto) 5.9 Absolute Nucleated RBC 0.000 Nucleated RBC % (auto) 0.0 Sodium 137 Potassium 3.8 Chloride 102 Carbon Dioxide 27 Anion Gap 12 BUN 16 Creatinine 0.83 Estim Creat Clear Calc 114.2 Estimated GFR > 60 Random Glucose 136 H Calcium 9.3 Ammonia Cancelled Medications Medications Current Medications Acetaminophen (Acetaminophen 325 Mg Tablet) 650 mg PO Q6H PRN PRN Reason: Headache/Pain Mild Scale (1-3) Al Hydroxide/Mg Hydroxide (Magnesium Hydrox/Alum Hydrox 30 Ml Oral.Susp) 30 ml PO Q6H PRN PRN Reason: Heartburn/Nausea Benztropine Mesylate (Benztropine Mesylate 1 Mg Tablet) 1 mg PO BID [facility] Last Admin: 09/17/23 20:20 Dose: 1 mg Haloperidol (Haloperidol 5 Mg Tablet) 10 mg PO BID [facility] Last Admin: 09/17/23 20:20 Dose: 10 mg Hydrochlorothiazide (Hydrochlorothiazide 12.5 Mg Tablet) 12.5 mg PO DAILY [facility]; Protocol Last Admin: 09/17/23 08:55 Dose: 12.5 mg Hydroxyzine HCl (Hydroxyzine Hcl 25 Mg Tablet) 25 mg PO Q6H PRN PRN Reason: Anxiety Last Admin: 09/12/23 16:59 Dose: 25 mg Hydroxyzine HCl (Hydroxyzine Hcl 10 Mg Tablet) 10 mg PO BID [facility] Last Admin: 09/17/23 20:20 Dose: 10 mg Lorazepam (Lorazepam 0.5 Mg Tablet) 0.5 mg PO BID PRN PRN Reason: anxiety/restlessness Magnesium Hydroxide (Milk Of Magnesia 30 Ml Oral.Susp) 30 ml PO DAILY PRN PRN Reason: Constipation Nicotine (Nicotine 14 Mg Patch.Td24) 14 mg TRANSDERMA DAILY [facility] Last Admin: 09/17/23 08:55 Dose: 14 mg Nicotine Polacrilex (Nicotine Polacrilex 2 Mg Gum) 2 mg BUCCAL Q2H PRN PRN Reason: Nicotine Cravings Last Admin: 09/17/23 17:02 Dose: 2 mg Trazodone HCl (Trazodone Hcl 50 Mg Tablet) 50 mg PO BEDTIME MRX1 PRN PRN Reason: Insomnia Last Admin: 09/16/23 23:55 Dose: 50 mg Allergies Allergies Allergy/AdvReac Type Severity Reaction Status Date / Time No Known Allergies Allergy Verified 09/04/23 23:31 Assessment & Plan Assessment & Plan (1) Acute psychosis: Status: Acute Code(s): F23 - Brief psychotic disorder (2) Schizophrenia: Status: Acute Code(s): F20.9 - Schizophrenia, unspecified (3) Alcohol use disorder: Status: Acute Code(s): F10.90 - Alcohol use, unspecified, uncomplicated (4) Cannabis use disorder: Status: Acute Code(s): F12.90 - Cannabis use, unspecified, uncomplicated Plan 27 yo male, presents with acute psychosis, ?schizophrenia, alcohol and cannabis use disorder. Pt is a very poor historian, focused on leaving the hospital and with intermittent resistance to medications. By hx, pt does well on regime which we will keep, holding the antidepressant while his psychotic sx are better managed. Will use lorazepam for detox with supportive MVI, folic acid and thiamine. Plan: Collateral Contact Olanzapine prn Lorazepam detox per [facility] MVI, Thiamine, Folic Acid Continue Risperdal Encourage alliance building add hydroxyzine 10mg BID for anxiety 09/08/23 continue treatmetn plan 09/09/23 Increase Risperdal to 3 mg bid Encouarge pt to remain in treatment and sign a conditional voluntary 09/10/23 Pt has signed a CV Continue current regime and plan of care 09/11/23 Begin one to one special due to intrusive sx. Continue regime 09/12/23 Discontinue Risperdal Haldol 5 mg bid and bid prn psychosis Benztropine 0.5 mg bid Lorazepam 0.25 mg bid Lorazepam prn for anxiety, agitation Repeat CBCD 09/13 (hx of increase of WBC) Transfer to M3 as pt's symptoms have angered his peers Continue one to one 09/13: Patient presents calm, cooperative. Does not present with intrusive behavior; 1:1 DC'd, placed on 5 minute safety checks. Patient reports feeling good today;he feels the medications are slowing me down .Pt states he does not recall going into other people's room's or any previous behavior from M5. denies SI/HI/VH/AH. Continue current tx plan. Consider BYRNE. 09/14:Continue current management and treatment plan. 09/15: Continue current management and treatment plan. 09/16: Patient presents guarded during 1:1. T/W asked pt how he was feeling today, pt replied, I don't know what that means . Pt reports he feels some confusion but was not able to elaborate. Pt stated, I don't want to make eye contact with any females. I don't know why anyone would care if they have a boyfriend or . He states he does not recall touching any other patients. Continues on 1:1. He reports sleeping well. Denies SI/HI/VH/AH. T/W spoke with pt's parents when they visited pt today; mother reported patient appears improved since the last time she visited patient a few days ago. 09/17: T/W and met with patient in unit office. Patient presents guarded during 1:1. Patient reports feeling good today; pt stated, I don't remember why I'm in here, the police showed up at my door . Pt was asked why he feels the need to touch other people; pt stated, because they are cute. Can White people touch Asians? because I have a niece and nephew who are White and no one better touch them . Patient was educated regarding consent however he appeared confused and stated, can Black people touch White people? . denies SI/HI/VH/AH. Haldol increased to 10mg PO BID. if no improvement in thought process, will consider starting zyprexa and tapering haldol. 09/18: Patient presents guarded during 1:1. Patient reports feeling okay today. Pt reports he has been keeping to himself; continues to present with some confusion. Continues on 1:1 safety checks. denies SI/HI/VH/AH. denies any side effects from increase in Haldol. Continue current tx plan. Patient educated on: diagnosis and medication risk/benefits Informed Consent: understands and further education needed Reason for continued inpatient stay Substantial Risk for: med/psych decompensation Time Spent With Patient Time: Total time managing care of this patient today _30___ minutes.
[2023-09-18 09:30] VITALS: BP 117/74
[2023-09-18] MEDS: hydroCHLOROthiazide 12.5 MG TABLET PO (09:30)
[2023-09-18] MEDS: hydrOXYzine HCL 10 MG TABLET PO ×2 (09:31→20:51)
[2023-09-18] MEDS: HaloperidoL 5 MG TABLET 10 MG PO ×2 (09:31→20:52)
[2023-09-18] MEDS: Benztropine Mesylate 1 MG TABLET PO ×2 (09:31→20:51)
[2023-09-18] MEDS: Nicotine 14 MG PATCH.TD24 TRANSDERMA (09:33)
[2023-09-18] MEDS: Nicotine Polacrilex 2 MG GUM BUCCAL (16:48)
[2023-09-18 18:00] VITALS: BP 120/85; PULSE 95; RESP 18; TEMP 36.7; O2SAT 98
[2023-09-18] MEDS: traZODone HCL 50 MG TABLET PO (20:51)
[2023-09-18] MEDS: LORazepam 0.5 MG TABLET PO (20:52)
[2023-09-19 07:00] VITALS: BMI 24.8
--- NOTE | 2023-09-19 08:16 | HO.PSYCHPN ---
Subjective Subjective Date of Service: 09/19/23 Reason For Visit: acute psychosis Interim History: met with patient; discussed with team; reviewed notes Patient lying in bed with cover over his head. He says that he is good and denies any problems or complaints other than to say that things on the unit are the same every day... On inquiry he reports he does not know why he was brought to the hospital. He denies AVH, SI or HI though remains internally preoccupied. Patient difficult with which to engage Mental Status Exam Mental Status Exam Narrative: Pt behavior is guarded, calm; dressed in casual attire; eye contact avoidant; Speech is normal rate, volume and prosody and not pressured; no psychomotor agitation/retardation present; presents with some confusion; denies SI/HI. There is no evidence of perceptual disturbance. Patients insight and judgment are poor. Diagnostics Vital Signs (24Hr): Vital Signs - 24 hr 09/18/23 09:30 09/18/23 18:00 Temperature 98.1 F Pulse Rate 95 Respiratory Rate 18 Blood Pressure 117/74 120/85 Pulse Oximetry 98 Oxygen Delivery Method Room Air BMI result Body Mass Index 23.3 Labs 09/16/23 15:30 09/16/23 15:30 Medications Medications Current Medications Acetaminophen (Acetaminophen 325 Mg Tablet) 650 mg PO Q6H PRN PRN Reason: Headache/Pain Mild Scale (1-3) Al Hydroxide/Mg Hydroxide (Magnesium Hydrox/Alum Hydrox 30 Ml Oral.Susp) 30 ml PO Q6H PRN PRN Reason: Heartburn/Nausea Benztropine Mesylate (Benztropine Mesylate 1 Mg Tablet) 1 mg PO BID [facility] Last Admin: 09/18/23 20:51 Dose: 1 mg Haloperidol (Haloperidol 5 Mg Tablet) 10 mg PO BID [facility] Last Admin: 09/18/23 20:52 Dose: 10 mg Hydrochlorothiazide (Hydrochlorothiazide 12.5 Mg Tablet) 12.5 mg PO DAILY [facility]; Protocol Last Admin: 09/18/23 09:30 Dose: 12.5 mg Hydroxyzine HCl (Hydroxyzine Hcl 25 Mg Tablet) 25 mg PO Q6H PRN PRN Reason: Anxiety Last Admin: 09/12/23 16:59 Dose: 25 mg Hydroxyzine HCl (Hydroxyzine Hcl 10 Mg Tablet) 10 mg PO BID [facility] Last Admin: 09/18/23 20:51 Dose: 10 mg Lorazepam (Lorazepam 0.5 Mg Tablet) 0.5 mg PO BID PRN PRN Reason: anxiety/restlessness Last Admin: 09/18/23 20:52 Dose: 0.5 mg Magnesium Hydroxide (Milk Of Magnesia 30 Ml Oral.Susp) 30 ml PO DAILY PRN PRN Reason: Constipation Nicotine (Nicotine 14 Mg Patch.Td24) 14 mg TRANSDERMA DAILY [facility] Last Admin: 09/18/23 09:33 Dose: 14 mg Nicotine Polacrilex (Nicotine Polacrilex 2 Mg Gum) 2 mg BUCCAL Q2H PRN PRN Reason: Nicotine Cravings Last Admin: 09/18/23 16:48 Dose: 2 mg Trazodone HCl (Trazodone Hcl 50 Mg Tablet) 50 mg PO BEDTIME MRX1 PRN PRN Reason: Insomnia Last Admin: 09/18/23 20:51 Dose: 50 mg Allergies Allergies Allergy/AdvReac Type Severity Reaction Status Date / Time No Known Allergies Allergy Verified 09/04/23 23:31 Assessment & Plan Assessment & Plan (1) Acute psychosis: Status: Acute Code(s): F23 - Brief psychotic disorder (2) Schizophrenia: Status: Acute Code(s): F20.9 - Schizophrenia, unspecified (3) Alcohol use disorder: Status: Acute Code(s): F10.90 - Alcohol use, unspecified, uncomplicated (4) Cannabis use disorder: Status: Acute Code(s): F12.90 - Cannabis use, unspecified, uncomplicated Plan 27 yo male, presents with acute psychosis, ?schizophrenia, alcohol and cannabis use disorder. Pt is a very poor historian, focused on leaving the hospital and with intermittent resistance to medications. By hx, pt does well on regime which we will keep, holding the antidepressant while his psychotic sx are better managed. Will use lorazepam for detox with supportive MVI, folic acid and thiamine. Plan: Collateral Contact Olanzapine prn Lorazepam detox per [facility] MVI, Thiamine, Folic Acid Continue Risperdal Encourage alliance building add hydroxyzine 10mg BID for anxiety 09/08/23 continue treatmetn plan 09/09/23 Increase Risperdal to 3 mg bid Encouarge pt to remain in treatment and sign a conditional voluntary 09/10/23 Pt has signed a CV Continue current regime and plan of care 09/11/23 Begin one to one special due to intrusive sx. Continue regime 09/12/23 Discontinue Risperdal Haldol 5 mg bid and bid prn psychosis Benztropine 0.5 mg bid Lorazepam 0.25 mg bid Lorazepam prn for anxiety, agitation Repeat CBCD 09/13 (hx of increase of WBC) Transfer to M3 as pt's symptoms have angered his peers Continue one to one 09/13: Patient presents calm, cooperative. Does not present with intrusive behavior; 1:1 DC'd, placed on 5 minute safety checks. Patient reports feeling good today;he feels the medications are slowing me down .Pt states he does not recall going into other people's room's or any previous behavior from M5. denies SI/HI/VH/AH. Continue current tx plan. Consider BYRNE. 09/14:Continue current management and treatment plan. 09/15: Continue current management and treatment plan. 09/16: Patient presents guarded during 1:1. T/W asked pt how he was feeling today, pt replied, I don't know what that means . Pt reports he feels some confusion but was not able to elaborate. Pt stated, I don't want to make eye contact with any females. I don't know why anyone would care if they have a boyfriend or . He states he does not recall touching any other patients. Continues on 1:1. He reports sleeping well. Denies SI/HI/VH/AH. T/W spoke with pt's parents when they visited pt today; mother reported patient appears improved since the last time she visited patient a few days ago. 09/17: T/W and met with patient in unit office. Patient presents guarded during 1:1. Patient reports feeling good today; pt stated, I don't remember why I'm in here, the police showed up at my door . Pt was asked why he feels the need to touch other people; pt stated, because they are cute. Can White people touch Asians? because I have a niece and nephew who are White and no one better touch them . Patient was educated regarding consent however he appeared confused and stated, can Black people touch White people? . denies SI/HI/VH/AH. Haldol increased to 10mg PO BID. if no improvement in thought process, will consider starting zyprexa and tapering haldol. 09/18: Patient presents guarded during 1:1. Patient reports feeling okay today. Pt reports he has been keeping to himself; continues to present with some confusion. Continues on 1:1 safety checks. denies SI/HI/VH/AH. denies any side effects from increase in Haldol. Continue current tx plan. 09/19 patient remains disorganized; continue one-to-one; continue current treatment plan Patient educated on: diagnosis Informed Consent: does not understand Reason for continued inpatient stay Substantial Risk for: inability to function Time Spent With Patient Time: Total time managing care of this patient today ____ minutes.
[2023-09-19 08:20] VITALS: BP 101/65; PULSE 82; RESP 16; TEMP 36.9; O2SAT 95
[2023-09-19] MEDS: hydroCHLOROthiazide 12.5 MG TABLET PO (08:24)
[2023-09-19] MEDS: HaloperidoL 5 MG TABLET 10 MG PO ×2 (08:25→20:56)
[2023-09-19] MEDS: hydrOXYzine HCL 10 MG TABLET PO ×2 (08:25→20:56)
[2023-09-19] MEDS: Benztropine Mesylate 1 MG TABLET PO ×2 (08:25→20:56)
[2023-09-19] MEDS: Nicotine 14 MG PATCH.TD24 TRANSDERMA (08:27)
[2023-09-19] MEDS: Nicotine Polacrilex 2 MG GUM BUCCAL ×3 (13:52→20:56)
[2023-09-19 20:27] VITALS: BP 118/73; PULSE 107; RESP 18; TEMP 36.8; O2SAT 98
[2023-09-19] MEDS: traZODone HCL 50 MG TABLET PO (20:56)
[2023-09-19] MEDS: LORazepam 0.5 MG TABLET PO (20:56)
[2023-09-20 07:20] VITALS: BP 97/53; PULSE 99; RESP 18; TEMP 36.9; O2SAT 97
[2023-09-20] MEDS: Nicotine 14 MG PATCH.TD24 TRANSDERMA (08:55)
[2023-09-20] MEDS: hydroCHLOROthiazide 12.5 MG TABLET PO (08:56)
[2023-09-20] MEDS: hydrOXYzine HCL 10 MG TABLET PO ×2 (08:56→22:41)
[2023-09-20] MEDS: HaloperidoL 5 MG TABLET 10 MG PO ×2 (08:56→22:41)
[2023-09-20] MEDS: Benztropine Mesylate 1 MG TABLET PO ×2 (08:57→22:41)
--- NOTE | 2023-09-20 12:49 | P.PNPSI_ITS ---
Subjective Subjective Date of Service: 09/20/23 Reason For Visit: acute psychosis Interim History: met with patient; discussed with team Patient not sure why he is here; very concrete in description, says he was at his house, sleeping in the police showed up took him to the hospital. He does not know why. He denies any AVH, denies any delusional thinking and none expressed. He is open to medication changes including clozapine. Mental Status Exam Mental Status Exam Narrative: Pt behavior is guarded, calm; dressed in casual attire; eye contact avoidant; Speech is normal rate, volume and prosody and not pressured; no psychomotor agitation/retardation present; presents with some confusion; denies SI/HI. There is no evidence of perceptual disturbance. Patients insight and judgment are poor. Diagnostics Vital Signs (24Hr): Vital Signs - 24 hr 09/19/23 20:27 09/20/23 07:20 Temperature 98.2 F 98.4 F Pulse Rate 107 H 99 Respiratory Rate 18 18 Blood Pressure 118/73 97/53 L Pulse Oximetry 98 97 Oxygen Delivery Method Room Air Room Air BMI result Body Mass Index 24.8 Labs 09/26/23 13:26 09/26/23 13:26 Medications Medications Current Medications Acetaminophen (Acetaminophen 325 Mg Tablet) 650 mg PO Q6H PRN PRN Reason: Headache/Pain Mild Scale (1-3) Al Hydroxide/Mg Hydroxide (Magnesium Hydrox/Alum Hydrox 30 Ml Oral.Susp) 30 ml PO Q6H PRN PRN Reason: Heartburn/Nausea Benztropine Mesylate (Benztropine Mesylate 1 Mg Tablet) 1 mg PO BID [facility] Last Admin: 09/20/23 08:57 Dose: 1 mg Haloperidol (Haloperidol 5 Mg Tablet) 10 mg PO BID [facility] Last Admin: 09/20/23 08:56 Dose: 10 mg Hydrochlorothiazide (Hydrochlorothiazide 12.5 Mg Tablet) 12.5 mg PO DAILY [facility]; Protocol Last Admin: 09/20/23 08:56 Dose: 12.5 mg Hydroxyzine HCl (Hydroxyzine Hcl 25 Mg Tablet) 25 mg PO Q6H PRN PRN Reason: Anxiety Last Admin: 09/12/23 16:59 Dose: 25 mg Hydroxyzine HCl (Hydroxyzine Hcl 10 Mg Tablet) 10 mg PO BID [facility] Last Admin: 09/20/23 08:56 Dose: 10 mg Lorazepam (Lorazepam 0.5 Mg Tablet) 0.5 mg PO BID PRN PRN Reason: anxiety/restlessness Last Admin: 09/19/23 20:56 Dose: 0.5 mg Magnesium Hydroxide (Milk Of Magnesia 30 Ml Oral.Susp) 30 ml PO DAILY PRN PRN Reason: Constipation Nicotine (Nicotine 14 Mg Patch.Td24) 14 mg TRANSDERMA DAILY [facility] Last Admin: 09/20/23 08:55 Dose: 14 mg Nicotine Polacrilex (Nicotine Polacrilex 2 Mg Gum) 2 mg BUCCAL Q2H PRN PRN Reason: Nicotine Cravings Last Admin: 09/19/23 20:56 Dose: 2 mg Trazodone HCl (Trazodone Hcl 50 Mg Tablet) 50 mg PO BEDTIME MRX1 PRN PRN Reason: Insomnia Last Admin: 09/19/23 20:56 Dose: 50 mg Allergies Allergies Allergy/AdvReac Type Severity Reaction Status Date / Time No Known Allergies Allergy Verified 09/04/23 23:31 Assessment & Plan Assessment & Plan (1) Acute psychosis: Status: Acute Code(s): F23 - Brief psychotic disorder (2) Schizophrenia: Status: Acute Code(s): F20.9 - Schizophrenia, unspecified (3) Alcohol use disorder: Status: Acute Code(s): F10.90 - Alcohol use, unspecified, uncomplicated (4) Cannabis use disorder: Status: Acute Code(s): F12.90 - Cannabis use, unspecified, uncomplicated Plan 27 yo male, presents with acute psychosis, ?schizophrenia, alcohol and cannabis use disorder. Pt is a very poor historian, focused on leaving the hospital and with intermittent resistance to medications. By hx, pt does well on regime which we will keep, holding the antidepressant while his psychotic sx are better managed. Will use lorazepam for detox with supportive MVI, folic acid and thiamine. Plan: Collateral Contact Olanzapine prn Lorazepam detox per [facility] MVI, Thiamine, Folic Acid Continue Risperdal Encourage alliance building add hydroxyzine 10mg BID for anxiety 09/08/23 continue treatmetn plan 09/09/23 Increase Risperdal to 3 mg bid Encouarge pt to remain in treatment and sign a conditional voluntary 09/10/23 Pt has signed a CV Continue current regime and plan of care 09/11/23 Begin one to one special due to intrusive sx. Continue regime 09/12/23 Discontinue Risperdal Haldol 5 mg bid and bid prn psychosis Benztropine 0.5 mg bid Lorazepam 0.25 mg bid Lorazepam prn for anxiety, agitation Repeat CBCD 09/13 (hx of increase of WBC) Transfer to M3 as pt's symptoms have angered his peers Continue one to one 09/13: Patient presents calm, cooperative. Does not present with intrusive behavior; 1:1 DC'd, placed on 5 minute safety checks. Patient reports feeling good today;he feels the medications are slowing me down .Pt states he does not recall going into other people's room's or any previous behavior from M5. denies SI/HI/VH/AH. Continue current tx plan. Consider BYRNE. 09/14:Continue current management and treatment plan. 09/15: Continue current management and treatment plan. 09/16: Patient presents guarded during 1:1. T/W asked pt how he was feeling today, pt replied, I don't know what that means . Pt reports he feels some confusion but was not able to elaborate. Pt stated, I don't want to make eye contact with any females. I don't know why anyone would care if they have a boyfriend or . He states he does not recall touching any other patients. Continues on 1:1. He reports sleeping well. Denies SI/HI/VH/AH. T/W spoke with pt's parents when they visited pt today; mother reported patient appears improved since the last time she visited patient a few days ago. 09/17: T/W and met with patient in unit office. Patient presents guarded during 1:1. Patient reports feeling good today; pt stated, I don't remember why I'm in here, the police showed up at my door . Pt was asked why he feels the need to touch other people; pt stated, because they are cute. Can White people touch Asians? because I have a niece and nephew who are White and no one better touch them . Patient was educated regarding consent however he appeared confused and stated, can Black people touch White people? . denies SI/HI/VH/AH. Haldol increased to 10mg PO BID. if no improvement in thought process, will consider starting zyprexa and tapering haldol. 09/18: Patient presents guarded during 1:1. Patient reports feeling okay today. Pt reports he has been keeping to himself; continues to present with some confusion. Continues on 1:1 safety checks. denies SI/HI/VH/AH. denies any side effects from increase in Haldol. Continue current tx plan. 09/19 patient remains disorganized; continue one-to-one; continue current treatment plan 09/20 patient open to medication changes; does not know why he is here and has low insight into illness however show some improvement bike knowledge in his need for medications -will defer to primary team regarding medication changes though patient is open to med management, including clozapine and weekly blood draws Patient educated on: diagnosis and medication risk/benefits Informed Consent: understands, does not understand and further education needed Reason for continued inpatient stay Substantial Risk for: inability to function Time Spent With Patient Time: Total time managing care of this patient today ____ minutes.
[2023-09-20] MEDS: Nicotine Polacrilex 2 MG GUM BUCCAL ×2 (18:16→23:07)
[2023-09-20] MEDS: traZODone HCL 50 MG TABLET PO (22:41)
[2023-09-20] MEDS: LORazepam 0.5 MG TABLET PO (22:41)
[2023-09-21 07:50] VITALS: BP 107/67; PULSE 95; RESP 22; TEMP 37; O2SAT 98
[2023-09-21] MEDS: HaloperidoL 5 MG TABLET 10 MG PO ×2 (09:09→21:48)
[2023-09-21] MEDS: hydroCHLOROthiazide 12.5 MG TABLET PO (09:10)
[2023-09-21] MEDS: Benztropine Mesylate 1 MG TABLET PO ×2 (09:10→21:48)
[2023-09-21] MEDS: hydrOXYzine HCL 10 MG TABLET PO ×2 (09:11→21:48)
[2023-09-21] MEDS: Nicotine 14 MG PATCH.TD24 TRANSDERMA (09:12)
--- NOTE | 2023-09-21 14:09 | HO.PSYCHPN ---
Subjective Subjective Date of Service: 09/21/23 Reason For Visit: acute psychosis Subjective Notes: Conditional Voluntary Interim History: Pt mostly in bed. He reports he is okay. He denies SI/HI. he denies any concerns however, per nursing pt verbalizing wanting to touch others. He continues on one to one due to intrusive behaviors. Review of Systems Review of Systems Constitutional : No Weight loss, No Fever, No Chills, No Fatigue, No Malaise ENT/Mouth : No sore throat, No Rhinorrhea Eyes: No Eye Pain, No Swelling, No Redness Cardiovascular : No Chest Pain, No SOB, No Dyspnea on Exertion, No Orthopnea, No Edema, No Palpitations Respiratory : No Cough, No Sputum, No Wheezing Gastrointestinal : No Nausea, No Vomiting, No Diarrhea, No Constipation, No abdominal Pain, No Hematochezia, No Melena Genitourinary : No Dysuria, No Urinary Frequency, No Hematuria, Musculoskeletal : No joint pain, No Myalgias, No Joint Swelling Skin : No Skin Lesions, No rash Neuro : No Weakness, No Numbness, No Dizziness, No Headache Psych : No Anxiety/Panic, No Depression, + hallucinations, No SI/HI All other systems reviewed and are negative Yes all other systems are reviewed and are negative and Unobtainable due to mental status Constitutional: Reports as per HPI Eyes: Reports as per HPI Reports as per HPI Cardiovascular: Reports as per HPI Respiratory: Reports as per HPI Gastrointestinal: Reports as per HPI Genitourinary: Reports as per HPI Musculoskeletal: Reports as per HPI Skin/Breast: Reports as per HPI Reports as per HPI Psychiatric: Reports as per HPI Endocrine: Reports as per HPI Hematologic/Lymphatic: Reports as per HPI Allergic/Immunologic: Reports as per HPI Mental Status Exam Mental Status Exam Patient Appearance: Appropriate Patient Orientation: Person and Place Level of Consciousness: Awake and Alert Patient Behavior: Guarded, Talkative, Cooperative, Passive, Suspicious, Wandering, Anxious, Distractible, Confused (at times) and Good Eye Contact Mood Description: Blunted Affect Description: Blunted Patient Cognition Impaired: No Ability to Follow Directions: Fair Speech Pattern: Spontaneous Speech, Soft-Spoken and Delayed Memory Description: Remote Impaired Diagnostics Vital Signs (24Hr): Vital Signs - 24 hr 09/21/23 07:50 Temperature 98.6 F Pulse Rate 95 Respiratory Rate 22 H Blood Pressure 107/67 Pulse Oximetry 98 Oxygen Delivery Method Room Air BMI result Body Mass Index 24.8 Labs 09/16/23 15:30 09/16/23 15:30 Medications Medications Current Medications Acetaminophen (Acetaminophen 325 Mg Tablet) 650 mg PO Q6H PRN PRN Reason: Headache/Pain Mild Scale (1-3) Al Hydroxide/Mg Hydroxide (Magnesium Hydrox/Alum Hydrox 30 Ml Oral.Susp) 30 ml PO Q6H PRN PRN Reason: Heartburn/Nausea Benztropine Mesylate (Benztropine Mesylate 1 Mg Tablet) 1 mg PO BID [facility] Last Admin: 09/21/23 09:10 Dose: 1 mg Haloperidol (Haloperidol 5 Mg Tablet) 10 mg PO BID [facility] Last Admin: 09/21/23 09:09 Dose: 10 mg Hydrochlorothiazide (Hydrochlorothiazide 12.5 Mg Tablet) 12.5 mg PO DAILY [facility]; Protocol Last Admin: 09/21/23 09:10 Dose: 12.5 mg Hydroxyzine HCl (Hydroxyzine Hcl 25 Mg Tablet) 25 mg PO Q6H PRN PRN Reason: Anxiety Last Admin: 09/12/23 16:59 Dose: 25 mg Hydroxyzine HCl (Hydroxyzine Hcl 10 Mg Tablet) 10 mg PO BID [facility] Last Admin: 09/21/23 09:11 Dose: 10 mg Lorazepam (Lorazepam 0.5 Mg Tablet) 0.5 mg PO BID PRN PRN Reason: anxiety/restlessness Last Admin: 09/20/23 22:41 Dose: 0.5 mg Magnesium Hydroxide (Milk Of Magnesia 30 Ml Oral.Susp) 30 ml PO DAILY PRN PRN Reason: Constipation Nicotine (Nicotine 14 Mg Patch.Td24) 14 mg TRANSDERMA DAILY [facility] Last Admin: 09/21/23 09:12 Dose: 14 mg Nicotine Polacrilex (Nicotine Polacrilex 2 Mg Gum) 2 mg BUCCAL Q2H PRN PRN Reason: Nicotine Cravings Last Admin: 09/20/23 23:07 Dose: 2 mg Trazodone HCl (Trazodone Hcl 50 Mg Tablet) 50 mg PO BEDTIME MRX1 PRN PRN Reason: Insomnia Last Admin: 09/20/23 22:41 Dose: 50 mg Allergies Allergies Allergy/AdvReac Type Severity Reaction Status Date / Time No Known Allergies Allergy Verified 09/04/23 23:31 Assessment & Plan Assessment & Plan (1) Acute psychosis: Status: Acute Code(s): F23 - Brief psychotic disorder (2) Schizophrenia: Status: Acute Code(s): F20.9 - Schizophrenia, unspecified (3) Alcohol use disorder: Status: Acute Code(s): F10.90 - Alcohol use, unspecified, uncomplicated (4) Cannabis use disorder: Status: Acute Code(s): F12.90 - Cannabis use, unspecified, uncomplicated Plan 27 yo male, presents with acute psychosis, ?schizophrenia, alcohol and cannabis use disorder. Pt is a very poor historian, focused on leaving the hospital and with intermittent resistance to medications. By hx, pt does well on regime which we will keep, holding the antidepressant while his psychotic sx are better managed. Will use lorazepam for detox with supportive MVI, folic acid and thiamine. Plan: Collateral Contact Olanzapine prn Lorazepam detox per [facility] MVI, Thiamine, Folic Acid Continue Risperdal Encourage alliance building add hydroxyzine 10mg BID for anxiety 09/08/23 continue treatmetn plan 09/09/23 Increase Risperdal to 3 mg bid Encouarge pt to remain in treatment and sign a conditional voluntary 09/10/23 Pt has signed a CV Continue current regime and plan of care 09/11/23 Begin one to one special due to intrusive sx. Continue regime 09/12/23 Discontinue Risperdal Haldol 5 mg bid and bid prn psychosis Benztropine 0.5 mg bid Lorazepam 0.25 mg bid Lorazepam prn for anxiety, agitation Repeat CBCD 09/13 (hx of increase of WBC) Transfer to M3 as pt's symptoms have angered his peers Continue one to one 09/13: Patient presents calm, cooperative. Does not present with intrusive behavior; 1:1 DC'd, placed on 5 minute safety checks. Patient reports feeling good today;he feels the medications are slowing me down .Pt states he does not recall going into other people's room's or any previous behavior from M5. denies SI/HI/VH/AH. Continue current tx plan. Consider BYRNE. 09/14:Continue current management and treatment plan. 09/15: Continue current management and treatment plan. 09/16: Patient presents guarded during 1:1. T/W asked pt how he was feeling today, pt replied, I don't know what that means . Pt reports he feels some confusion but was not able to elaborate. Pt stated, I don't want to make eye contact with any females. I don't know why anyone would care if they have a boyfriend or . He states he does not recall touching any other patients. Continues on 1:1. He reports sleeping well. Denies SI/HI/VH/AH. T/W spoke with pt's parents when they visited pt today; mother reported patient appears improved since the last time she visited patient a few days ago. 09/17: T/W and met with patient in unit office. Patient presents guarded during 1:1. Patient reports feeling good today; pt stated, I don't remember why I'm in here, the police showed up at my door . Pt was asked why he feels the need to touch other people; pt stated, because they are cute. Can White people touch Asians? because I have a niece and nephew who are White and no one better touch them . Patient was educated regarding consent however he appeared confused and stated, can Black people touch White people? . denies SI/HI/VH/AH. Haldol increased to 10mg PO BID. if no improvement in thought process, will consider starting zyprexa and tapering haldol. 09/18: Patient presents guarded during 1:1. Patient reports feeling okay today. Pt reports he has been keeping to himself; continues to present with some confusion. Continues on 1:1 safety checks. denies SI/HI/VH/AH. denies any side effects from increase in Haldol. Continue current tx plan. 09/19 patient remains disorganized; continue one-to-one; continue current treatment plan 09/21 continue tx. Reason for continued inpatient stay Substantial Risk for: inability to function Time Spent With Patient Time: Total time managing care of this patient today ____ minutes.
[2023-09-21] MEDS: Nicotine Polacrilex 2 MG GUM BUCCAL ×2 (16:37→21:48)
[2023-09-21 19:28] VITALS: BP 114/71; PULSE 102; RESP 18; TEMP 37.1; O2SAT 98
[2023-09-21] MEDS: traZODone HCL 50 MG TABLET PO (21:48)
[2023-09-21] MEDS: LORazepam 0.5 MG TABLET PO (21:48)
[2023-09-22 07:35] VITALS: BP 104/61; PULSE 95; RESP 22; TEMP 36.3; O2SAT 98
[2023-09-22] MEDS: Nicotine 14 MG PATCH.TD24 TRANSDERMA (08:58)
[2023-09-22] MEDS: hydrOXYzine HCL 10 MG TABLET PO ×2 (08:59→21:16)
[2023-09-22] MEDS: HaloperidoL 5 MG TABLET 10 MG PO ×2 (08:59→21:15)
[2023-09-22] MEDS: Benztropine Mesylate 1 MG TABLET PO ×2 (08:59→21:15)
[2023-09-22] MEDS: hydroCHLOROthiazide 12.5 MG TABLET PO (09:00)
--- NOTE | 2023-09-22 17:02 | P.PNPSI_ITS ---
Subjective Subjective Date of Service: 09/22/23 Reason For Visit: acute psychosis Interim History: Pt mostly in bed. He reports he is okay. He denies SI/HI. he denies any concerns however, per nursing pt verbalizing wanting to touch others. He continues on one to one due to intrusive behaviors. Review of Systems Review of Systems Constitutional : No Weight loss, No Fever, No Chills, No Fatigue, No Malaise ENT/Mouth : No sore throat, No Rhinorrhea Eyes: No Eye Pain, No Swelling, No Redness Cardiovascular : No Chest Pain, No SOB, No Dyspnea on Exertion, No Orthopnea, No Edema, No Palpitations Respiratory : No Cough, No Sputum, No Wheezing Gastrointestinal : No Nausea, No Vomiting, No Diarrhea, No Constipation, No abdominal Pain, No Hematochezia, No Melena Genitourinary : No Dysuria, No Urinary Frequency, No Hematuria, Musculoskeletal : No joint pain, No Myalgias, No Joint Swelling Skin : No Skin Lesions, No rash Neuro : No Weakness, No Numbness, No Dizziness, No Headache Psych : No Anxiety/Panic, No Depression, + hallucinations, No SI/HI All other systems reviewed and are negative Yes all other systems are reviewed and are negative and Unobtainable due to mental status Constitutional: Reports as per HPI Eyes: Reports as per HPI Reports as per HPI Cardiovascular: Reports as per HPI Respiratory: Reports as per HPI Gastrointestinal: Reports as per HPI Genitourinary: Reports as per HPI Musculoskeletal: Reports as per HPI Skin/Breast: Reports as per HPI Reports as per HPI Psychiatric: Reports as per HPI Endocrine: Reports as per HPI Hematologic/Lymphatic: Reports as per HPI Allergic/Immunologic: Reports as per HPI Mental Status Exam Mental Status Exam Patient Appearance: Appropriate Patient Orientation: Person and Place Level of Consciousness: Awake and Alert Patient Behavior: Guarded, Talkative, Cooperative, Passive, Suspicious, Wandering, Anxious, Distractible, Confused (at times) and Good Eye Contact Mood Description: Blunted Affect Description: Blunted Patient Cognition Impaired: No Ability to Follow Directions: Fair Speech Pattern: Spontaneous Speech, Soft-Spoken and Delayed Memory Description: Remote Impaired Diagnostics Vital Signs (24Hr): Vital Signs - 24 hr 09/21/23 19:28 09/22/23 07:35 Temperature 98.8 F 97.3 F Pulse Rate 102 H 95 Respiratory Rate 18 22 H Blood Pressure 114/71 104/61 Pulse Oximetry 98 98 Oxygen Delivery Method Room Air Room Air BMI result Body Mass Index 24.8 Labs 09/16/23 15:30 09/16/23 15:30 Medications Medications Current Medications Acetaminophen (Acetaminophen 325 Mg Tablet) 650 mg PO Q6H PRN PRN Reason: Headache/Pain Mild Scale (1-3) Al Hydroxide/Mg Hydroxide (Magnesium Hydrox/Alum Hydrox 30 Ml Oral.Susp) 30 ml PO Q6H PRN PRN Reason: Heartburn/Nausea Benztropine Mesylate (Benztropine Mesylate 1 Mg Tablet) 1 mg PO BID [facility] Last Admin: 09/22/23 08:59 Dose: 1 mg Haloperidol (Haloperidol 5 Mg Tablet) 10 mg PO BID [facility] Last Admin: 09/22/23 08:59 Dose: 10 mg Hydrochlorothiazide (Hydrochlorothiazide 12.5 Mg Tablet) 12.5 mg PO DAILY [facility]; Protocol Last Admin: 09/22/23 09:00 Dose: 12.5 mg Hydroxyzine HCl (Hydroxyzine Hcl 25 Mg Tablet) 25 mg PO Q6H PRN PRN Reason: Anxiety Last Admin: 09/12/23 16:59 Dose: 25 mg Hydroxyzine HCl (Hydroxyzine Hcl 10 Mg Tablet) 10 mg PO BID [facility] Last Admin: 09/22/23 08:59 Dose: 10 mg Magnesium Hydroxide (Milk Of Magnesia 30 Ml Oral.Susp) 30 ml PO DAILY PRN PRN Reason: Constipation Nicotine (Nicotine 14 Mg Patch.Td24) 14 mg TRANSDERMA DAILY [facility] Last Admin: 09/22/23 08:58 Dose: 14 mg Nicotine Polacrilex (Nicotine Polacrilex 2 Mg Gum) 2 mg BUCCAL Q2H PRN PRN Reason: Nicotine Cravings Last Admin: 09/21/23 21:48 Dose: 2 mg Trazodone HCl (Trazodone Hcl 50 Mg Tablet) 50 mg PO BEDTIME MRX1 PRN PRN Reason: Insomnia Last Admin: 09/21/23 21:48 Dose: 50 mg Allergies Allergies Allergy/AdvReac Type Severity Reaction Status Date / Time No Known Allergies Allergy Verified 09/04/23 23:31 Assessment & Plan Assessment & Plan (1) Acute psychosis: Status: Acute Code(s): F23 - Brief psychotic disorder (2) Schizophrenia: Status: Acute Code(s): F20.9 - Schizophrenia, unspecified (3) Alcohol use disorder: Status: Acute Code(s): F10.90 - Alcohol use, unspecified, uncomplicated (4) Cannabis use disorder: Status: Acute Code(s): F12.90 - Cannabis use, unspecified, uncomplicated Plan 27 yo male, presents with acute psychosis, ?schizophrenia, alcohol and cannabis use disorder. Pt is a very poor historian, focused on leaving the hospital and with intermittent resistance to medications. By hx, pt does well on regime which we will keep, holding the antidepressant while his psychotic sx are better managed. Will use lorazepam for detox with supportive MVI, folic acid and thiamine. Plan: Collateral Contact Olanzapine prn Lorazepam detox per [facility] MVI, Thiamine, Folic Acid Continue Risperdal Encourage alliance building add hydroxyzine 10mg BID for anxiety 09/08/23 continue treatmetn plan 09/09/23 Increase Risperdal to 3 mg bid Encouarge pt to remain in treatment and sign a conditional voluntary 09/10/23 Pt has signed a CV Continue current regime and plan of care 09/11/23 Begin one to one special due to intrusive sx. Continue regime 09/12/23 Discontinue Risperdal Haldol 5 mg bid and bid prn psychosis Benztropine 0.5 mg bid Lorazepam 0.25 mg bid Lorazepam prn for anxiety, agitation Repeat CBCD 09/13 (hx of increase of WBC) Transfer to M3 as pt's symptoms have angered his peers Continue one to one 09/13: Patient presents calm, cooperative. Does not present with intrusive behavior; 1:1 DC'd, placed on 5 minute safety checks. Patient reports feeling good today;he feels the medications are slowing me down .Pt states he does not recall going into other people's room's or any previous behavior from M5. denies SI/HI/VH/AH. Continue current tx plan. Consider BYRNE. 09/14:Continue current management and treatment plan. 09/15: Continue current management and treatment plan. 09/16: Patient presents guarded during 1:1. T/W asked pt how he was feeling today, pt replied, I don't know what that means . Pt reports he feels some confusion but was not able to elaborate. Pt stated, I don't want to make eye contact with any females. I don't know why anyone would care if they have a boyfriend or . He states he does not recall touching any other patients. Continues on 1:1. He reports sleeping well. Denies SI/HI/VH/AH. T/W spoke with pt's parents when they visited pt today; mother reported patient appears improved since the last time she visited patient a few days ago. 09/17: T/W and met with patient in unit office. Patient presents guarded during 1:1. Patient reports feeling good today; pt stated, I don't remember why I'm in here, the police showed up at my door . Pt was asked why he feels the need to touch other people; pt stated, because they are cute. Can White people touch Asians? because I have a niece and nephew who are White and no one better touch them . Patient was educated regarding consent however he appeared confused and stated, can Black people touch White people? . denies SI/HI/VH/AH. Haldol increased to 10mg PO BID. if no improvement in thought process, will consider starting zyprexa and tapering haldol. 09/18: Patient presents guarded during 1:1. Patient reports feeling okay today. Pt reports he has been keeping to himself; continues to present with some confusion. Continues on 1:1 safety checks. denies SI/HI/VH/AH. denies any side effects from increase in Haldol. Continue current tx plan. 09/19 patient remains disorganized; continue one-to-one; continue current treatment plan 09/21 continue tx. 09/22 continue tx. Reason for continued inpatient stay Substantial Risk for: inability to function Time Spent With Patient Time: Total time managing care of this patient today ____ minutes.
[2023-09-22] MEDS: Nicotine Polacrilex 2 MG GUM BUCCAL ×2 (19:04→21:15)
[2023-09-22 20:00] VITALS: BP 116/71; PULSE 99; TEMP 36.9; O2SAT 99
[2023-09-22] MEDS: traZODone HCL 50 MG TABLET PO (21:16)
[2023-09-23 07:35] VITALS: BP 116/76; PULSE 103; RESP 20; TEMP 37.4; O2SAT 97
[2023-09-23] MEDS: hydroCHLOROthiazide 12.5 MG TABLET PO (08:19)
[2023-09-23] MEDS: hydrOXYzine HCL 10 MG TABLET PO ×2 (08:19→21:01)
[2023-09-23] MEDS: Benztropine Mesylate 1 MG TABLET PO (08:19)
[2023-09-23] MEDS: HaloperidoL 5 MG TABLET 10 MG PO (08:19)
--- NOTE | 2023-09-23 09:51 | HO.PSYCHPN ---
Subjective Subjective Date of Service: 09/23/23 Reason For Visit: acute psychosis Subjective Notes: Conditional Voluntary Interim History: Reviewed with . guarded, flat affect. Pt reports feeling good ; reports he sleeps a lot because it feels good . Responds with short answers. Pt reports this is not how he is at baseline. discussed changing his medication from Haldol to Zyprexa. Risks/benefits discussed. Haldol decreased to 5mg PO BID Start: zyprexa 10mg PO bedtime Family meeting scheduled for this Saturday09/25/23. Medication Compliance: Yes Side effects from medications: No Attending Groups: No Review of Systems Constitutional: Reports as per HPI Eyes: Reports as per HPI Reports as per HPI Cardiovascular: Reports as per HPI Respiratory: Reports as per HPI Gastrointestinal: Reports as per HPI Genitourinary: Reports as per HPI Musculoskeletal: Reports as per HPI Skin/Breast: Reports as per HPI Reports as per HPI Psychiatric: Reports as per HPI Endocrine: Reports as per HPI Hematologic/Lymphatic: Reports as per HPI Allergic/Immunologic: Reports as per HPI Mental Status Exam Mental Status Exam Narrative: Pt behavior is guarded, calm; dressed in casual attire; eye contact avoidant; Speech is normal rate, volume and prosody and not pressured; no psychomotor agitation/retardation present; presents with some confusion; denies SI/HI. There is no evidence of perceptual disturbance. Patients insight and judgment are poor. Diagnostics Vital Signs (24Hr): Vital Signs - 24 hr 09/22/23 20:00 09/23/23 07:35 Temperature 98.4 F 99.3 F Pulse Rate 99 103 H Respiratory Rate 20 Blood Pressure 116/71 116/76 Pulse Oximetry 99 97 Oxygen Delivery Method Room Air Room Air BMI result Body Mass Index 24.8 Labs 09/16/23 15:30 09/16/23 15:30 Medications Medications Current Medications Acetaminophen (Acetaminophen 325 Mg Tablet) 650 mg PO Q6H PRN PRN Reason: Headache/Pain Mild Scale (1-3) Al Hydroxide/Mg Hydroxide (Magnesium Hydrox/Alum Hydrox 30 Ml Oral.Susp) 30 ml PO Q6H PRN PRN Reason: Heartburn/Nausea Benztropine Mesylate (Benztropine Mesylate 1 Mg Tablet) 1 mg PO BID [facility] Last Admin: 09/23/23 08:19 Dose: 1 mg Haloperidol (Haloperidol 5 Mg Tablet) 10 mg PO BID [facility] Last Admin: 09/23/23 08:19 Dose: 10 mg Hydrochlorothiazide (Hydrochlorothiazide 12.5 Mg Tablet) 12.5 mg PO DAILY [facility]; Protocol Last Admin: 09/23/23 08:19 Dose: 12.5 mg Hydroxyzine HCl (Hydroxyzine Hcl 25 Mg Tablet) 25 mg PO Q6H PRN PRN Reason: Anxiety Last Admin: 09/12/23 16:59 Dose: 25 mg Hydroxyzine HCl (Hydroxyzine Hcl 10 Mg Tablet) 10 mg PO BID [facility] Last Admin: 09/23/23 08:19 Dose: 10 mg Magnesium Hydroxide (Milk Of Magnesia 30 Ml Oral.Susp) 30 ml PO DAILY PRN PRN Reason: Constipation Nicotine (Nicotine 14 Mg Patch.Td24) 14 mg TRANSDERMA DAILY [facility] Last Admin: 09/23/23 08:37 Dose: Not Given Nicotine Polacrilex (Nicotine Polacrilex 2 Mg Gum) 2 mg BUCCAL Q2H PRN PRN Reason: Nicotine Cravings Last Admin: 09/22/23 21:15 Dose: 2 mg Trazodone HCl (Trazodone Hcl 50 Mg Tablet) 50 mg PO BEDTIME MRX1 PRN PRN Reason: Insomnia Last Admin: 09/22/23 21:16 Dose: 50 mg Allergies Allergies Allergy/AdvReac Type Severity Reaction Status Date / Time No Known Allergies Allergy Verified 09/04/23 23:31 Assessment & Plan Assessment & Plan (1) Acute psychosis: Status: Acute Code(s): F23 - Brief psychotic disorder (2) Schizophrenia: Status: Acute Code(s): F20.9 - Schizophrenia, unspecified (3) Alcohol use disorder: Status: Acute Code(s): F10.90 - Alcohol use, unspecified, uncomplicated (4) Cannabis use disorder: Status: Acute Code(s): F12.90 - Cannabis use, unspecified, uncomplicated Plan 27 yo male, presents with acute psychosis, ?schizophrenia, alcohol and cannabis use disorder. Pt is a very poor historian, focused on leaving the hospital and with intermittent resistance to medications. By hx, pt does well on regime which we will keep, holding the antidepressant while his psychotic sx are better managed. Will use lorazepam for detox with supportive MVI, folic acid and thiamine. Plan: Collateral Contact Olanzapine prn Lorazepam detox per [facility] MVI, Thiamine, Folic Acid Continue Risperdal Encourage alliance building add hydroxyzine 10mg BID for anxiety 09/08/23 continue treatmetn plan 09/09/23 Increase Risperdal to 3 mg bid Encouarge pt to remain in treatment and sign a conditional voluntary 09/10/23 Pt has signed a CV Continue current regime and plan of care 09/11/23 Begin one to one special due to intrusive sx. Continue regime 09/12/23 Discontinue Risperdal Haldol 5 mg bid and bid prn psychosis Benztropine 0.5 mg bid Lorazepam 0.25 mg bid Lorazepam prn for anxiety, agitation Repeat CBCD 09/13 (hx of increase of WBC) Transfer to M3 as pt's symptoms have angered his peers Continue one to one 09/13: Patient presents calm, cooperative. Does not present with intrusive behavior; 1:1 DC'd, placed on 5 minute safety checks. Patient reports feeling good today;he feels the medications are slowing me down .Pt states he does not recall going into other people's room's or any previous behavior from M5. denies SI/HI/VH/AH. Continue current tx plan. Consider BYRNE. 09/14:Continue current management and treatment plan. 09/15: Continue current management and treatment plan. 09/16: Patient presents guarded during 1:1. T/W asked pt how he was feeling today, pt replied, I don't know what that means . Pt reports he feels some confusion but was not able to elaborate. Pt stated, I don't want to make eye contact with any females. I don't know why anyone would care if they have a boyfriend or . He states he does not recall touching any other patients. Continues on 1:1. He reports sleeping well. Denies SI/HI/VH/AH. T/W spoke with pt's parents when they visited pt today; mother reported patient appears improved since the last time she visited patient a few days ago. 09/17: T/W and met with patient in unit office. Patient presents guarded during 1:1. Patient reports feeling good today; pt stated, I don't remember why I'm in here, the police showed up at my door . Pt was asked why he feels the need to touch other people; pt stated, because they are cute. Can White people touch Asians? because I have a niece and nephew who are White and no one better touch them . Patient was educated regarding consent however he appeared confused and stated, can Black people touch White people? . denies SI/HI/VH/AH. Haldol increased to 10mg PO BID. if no improvement in thought process, will consider starting zyprexa and tapering haldol. 09/18: Patient presents guarded during 1:1. Patient reports feeling okay today. Pt reports he has been keeping to himself; continues to present with some confusion. Continues on 1:1 safety checks. denies SI/HI/VH/AH. denies any side effects from increase in Haldol. Continue current tx plan. 09/19 patient remains disorganized; continue one-to-one; continue current treatment plan 09/21 continue tx. 09/22 continue tx. 09/23: guarded, flat affect. Pt reports feeling good ; reports he sleeps a lot because it feels good . Responds with short answers. Pt reports this is not how he is at baseline. discussed changing his medication from Haldol to Zyprexa. Risks/benefits discussed. Haldol decreased to 5mg PO BID Start: zyprexa 10mg PO bedtime Family meeting scheduled for this Saturday09/25/23. Patient educated on: diagnosis and medication risk/benefits Informed Consent: understands Reason for continued inpatient stay Substantial Risk for: med/psych decompensation Time Spent With Patient Time: Total time managing care of this patient today _30___ minutes.
[2023-09-23] MEDS: HaloperidoL 5 MG TABLET PO (21:01)
[2023-09-23] MEDS: OLANZapine 10 MG TABLET PO (21:01)
[2023-09-23 21:06] VITALS: BP 117/82; PULSE 92; TEMP 36.7; O2SAT 99
[2023-09-24 06:00] VITALS: BP 113/71; PULSE 82; RESP 18; TEMP 37.2; O2SAT 96
[2023-09-24] MEDS: hydroCHLOROthiazide 12.5 MG TABLET PO (08:47)
[2023-09-24] MEDS: hydrOXYzine HCL 10 MG TABLET PO ×2 (08:47→21:02)
[2023-09-24] MEDS: HaloperidoL 5 MG TABLET PO ×2 (08:47→21:02)
--- NOTE | 2023-09-24 12:12 | HO.PSYCHPN ---
Subjective Subjective Date of Service: 09/24/23 Reason For Visit: acute psychosis Subjective Notes: Conditional Voluntary Interim History: Reviewed with . Guarded, flat affect. Isolative. Napping most of day. Pt stated, I feel okay. The medication doesn't make me sleepy. I just like to sleep . denies SI/HI/VH/AH. Medication Compliance: Yes Side effects from medications: No Attending Groups: No Review of Systems Constitutional: Reports as per HPI Eyes: Reports as per HPI Reports as per HPI Cardiovascular: Reports as per HPI Respiratory: Reports as per HPI Gastrointestinal: Reports as per HPI Genitourinary: Reports as per HPI Musculoskeletal: Reports as per HPI Skin/Breast: Reports as per HPI Reports as per HPI Psychiatric: Reports as per HPI Endocrine: Reports as per HPI Hematologic/Lymphatic: Reports as per HPI Allergic/Immunologic: Reports as per HPI Mental Status Exam Mental Status Exam Narrative: Pt behavior is guarded, calm; dressed in casual attire; eye contact avoidant; Speech is normal rate, volume and prosody and not pressured; no psychomotor agitation/retardation present; presents with some confusion; denies SI/HI. There is no evidence of perceptual disturbance. Patients insight and judgment are poor. Diagnostics Vital Signs (24Hr): Vital Signs - 24 hr 09/23/23 21:06 09/24/23 06:00 Temperature 98.0 F 99.0 F Pulse Rate 92 82 Respiratory Rate 18 Blood Pressure 117/82 113/71 Pulse Oximetry 99 96 Oxygen Delivery Method Room Air Room Air BMI result Body Mass Index 24.8 Labs 09/16/23 15:30 09/16/23 15:30 Medications Medications Current Medications Acetaminophen (Acetaminophen 325 Mg Tablet) 650 mg PO Q6H PRN PRN Reason: Headache/Pain Mild Scale (1-3) Al Hydroxide/Mg Hydroxide (Magnesium Hydrox/Alum Hydrox 30 Ml Oral.Susp) 30 ml PO Q6H PRN PRN Reason: Heartburn/Nausea Haloperidol (Haloperidol 5 Mg Tablet) 5 mg PO BID [facility] Last Admin: 09/24/23 08:47 Dose: 5 mg Hydrochlorothiazide (Hydrochlorothiazide 12.5 Mg Tablet) 12.5 mg PO DAILY [facility]; Protocol Last Admin: 09/24/23 08:47 Dose: 12.5 mg Hydroxyzine HCl (Hydroxyzine Hcl 25 Mg Tablet) 25 mg PO Q6H PRN PRN Reason: Anxiety Last Admin: 09/12/23 16:59 Dose: 25 mg Hydroxyzine HCl (Hydroxyzine Hcl 10 Mg Tablet) 10 mg PO BID [facility] Last Admin: 09/24/23 08:47 Dose: 10 mg Magnesium Hydroxide (Milk Of Magnesia 30 Ml Oral.Susp) 30 ml PO DAILY PRN PRN Reason: Constipation Nicotine (Nicotine 14 Mg Patch.Td24) 14 mg TRANSDERMA DAILY [facility] Last Admin: 09/24/23 08:49 Dose: Not Given Nicotine Polacrilex (Nicotine Polacrilex 2 Mg Gum) 2 mg BUCCAL Q2H PRN PRN Reason: Nicotine Cravings Last Admin: 09/22/23 21:15 Dose: 2 mg Olanzapine (Olanzapine 10 Mg Tablet) 10 mg PO BEDTIME [facility] Last Admin: 09/23/23 21:01 Dose: 10 mg Trazodone HCl (Trazodone Hcl 50 Mg Tablet) 50 mg PO BEDTIME MRX1 PRN PRN Reason: Insomnia Last Admin: 09/22/23 21:16 Dose: 50 mg Allergies Allergies Allergy/AdvReac Type Severity Reaction Status Date / Time No Known Allergies Allergy Verified 09/04/23 23:31 Assessment & Plan Assessment & Plan (1) Acute psychosis: Status: Acute Code(s): F23 - Brief psychotic disorder (2) Schizophrenia: Status: Acute Code(s): F20.9 - Schizophrenia, unspecified (3) Alcohol use disorder: Status: Acute Code(s): F10.90 - Alcohol use, unspecified, uncomplicated (4) Cannabis use disorder: Status: Acute Code(s): F12.90 - Cannabis use, unspecified, uncomplicated Plan 27 yo male, presents with acute psychosis, ?schizophrenia, alcohol and cannabis use disorder. Pt is a very poor historian, focused on leaving the hospital and with intermittent resistance to medications. By hx, pt does well on regime which we will keep, holding the antidepressant while his psychotic sx are better managed. Will use lorazepam for detox with supportive MVI, folic acid and thiamine. Plan: Collateral Contact Olanzapine prn Lorazepam detox per [facility] MVI, Thiamine, Folic Acid Continue Risperdal Encourage alliance building add hydroxyzine 10mg BID for anxiety 09/08/23 continue treatmetn plan 09/09/23 Increase Risperdal to 3 mg bid Encouarge pt to remain in treatment and sign a conditional voluntary 09/10/23 Pt has signed a CV Continue current regime and plan of care 09/11/23 Begin one to one special due to intrusive sx. Continue regime 09/12/23 Discontinue Risperdal Haldol 5 mg bid and bid prn psychosis Benztropine 0.5 mg bid Lorazepam 0.25 mg bid Lorazepam prn for anxiety, agitation Repeat CBCD 09/13 (hx of increase of WBC) Transfer to M3 as pt's symptoms have angered his peers Continue one to one 09/13: Patient presents calm, cooperative. Does not present with intrusive behavior; 1:1 DC'd, placed on 5 minute safety checks. Patient reports feeling good today;he feels the medications are slowing me down .Pt states he does not recall going into other people's room's or any previous behavior from M5. denies SI/HI/VH/AH. Continue current tx plan. Consider BYRNE. 09/14:Continue current management and treatment plan. 09/15: Continue current management and treatment plan. 09/16: Patient presents guarded during 1:1. T/W asked pt how he was feeling today, pt replied, I don't know what that means . Pt reports he feels some confusion but was not able to elaborate. Pt stated, I don't want to make eye contact with any females. I don't know why anyone would care if they have a boyfriend or . He states he does not recall touching any other patients. Continues on 1:1. He reports sleeping well. Denies SI/HI/VH/AH. T/W spoke with pt's parents when they visited pt today; mother reported patient appears improved since the last time she visited patient a few days ago. 09/17: T/W and met with patient in unit office. Patient presents guarded during 1:1. Patient reports feeling good today; pt stated, I don't remember why I'm in here, the police showed up at my door . Pt was asked why he feels the need to touch other people; pt stated, because they are cute. Can White people touch Asians? because I have a niece and nephew who are White and no one better touch them . Patient was educated regarding consent however he appeared confused and stated, can Black people touch White people? . denies SI/HI/VH/AH. Haldol increased to 10mg PO BID. if no improvement in thought process, will consider starting zyprexa and tapering haldol. 09/18: Patient presents guarded during 1:1. Patient reports feeling okay today. Pt reports he has been keeping to himself; continues to present with some confusion. Continues on 1:1 safety checks. denies SI/HI/VH/AH. denies any side effects from increase in Haldol. Continue current tx plan. 09/19 patient remains disorganized; continue one-to-one; continue current treatment plan 09/21 continue tx. 09/22 continue tx. 09/23: guarded, flat affect. Pt reports feeling good ; reports he sleeps a lot because it feels good . Responds with short answers. Pt reports this is not how he is at baseline. discussed changing his medication from Haldol to Zyprexa. Risks/benefits discussed. Haldol decreased to 5mg PO BID Start: zyprexa 10mg PO bedtime Family meeting scheduled for this Saturday09/25/23. 09/24: Guarded, flat affect. Isolative. Napping most of day. Pt stated, I feel okay. The medication doesn't make me sleepy. I just like to sleep . denies SI/HI/VH/AH. Patient educated on: diagnosis, medication risk/benefits and therapeutic strategies Informed Consent: understands Reason for continued inpatient stay Substantial Risk for: med/psych decompensation Time Spent With Patient Time: Total time managing care of this patient today _20___ minutes.
[2023-09-24] MEDS: Nicotine Polacrilex 2 MG GUM BUCCAL ×2 (18:33→21:04)
[2023-09-24 20:00] VITALS: BP 111/73; PULSE 92; RESP 15; TEMP 36.5; O2SAT 100
[2023-09-24] MEDS: OLANZapine 10 MG TABLET PO (21:02)
[2023-09-24] MEDS: traZODone HCL 50 MG TABLET PO (21:02)
[2023-09-25 07:50] VITALS: BP 113/65; PULSE 90; RESP 20; TEMP 36.7; O2SAT 96
[2023-09-25] MEDS: Nicotine 14 MG PATCH.TD24 TRANSDERMA (09:03)
[2023-09-25] MEDS: hydrOXYzine HCL 10 MG TABLET PO (09:04)
[2023-09-25] MEDS: hydroCHLOROthiazide 12.5 MG TABLET PO (09:04)
[2023-09-25] MEDS: HaloperidoL 5 MG TABLET PO (09:04)
--- NOTE | 2023-09-25 09:15 | P.PNPSI_ITS ---
Subjective Subjective Date of Service: 09/25/23 Reason For Visit: acute psychosis Subjective Notes: Conditional Voluntary Interim History: Reviewed with . family meeting with pt and his parents; social media marketing specialist, Pedrito, present. Patient reports feeling better with decreasing the Haldol . Patient presents with wider range of affect and more talkative than days prior. Patient's mother stated she also believed patient appeared slightly improved since the last time she visited. Pt taken off 1:1; will trial 5 minute checks. Patient reports he plans on keeping to myself and not bothering anyone . Will continue to increase zyprexa dosage. Medication Compliance: Yes Side effects from medications: No Attending Groups: No Review of Systems Constitutional: Reports as per HPI Eyes: Reports as per HPI Reports as per HPI Cardiovascular: Reports as per HPI Respiratory: Reports as per HPI Gastrointestinal: Reports as per HPI Genitourinary: Reports as per HPI Musculoskeletal: Reports as per HPI Skin/Breast: Reports as per HPI Reports as per HPI Psychiatric: Reports as per HPI Endocrine: Reports as per HPI Hematologic/Lymphatic: Reports as per HPI Allergic/Immunologic: Reports as per HPI Mental Status Exam Mental Status Exam Narrative: Pt is alert and oriented; behavior is guarded and calm; dressed in casual attire; mood is described as good ; eye contact appropriate; thought process is linear; Thought content is on discharge; denies SI/HI. There is no evidence of perceptual disturbance. Patients insight and judgment are poor. Diagnostics Vital Signs (24Hr): Vital Signs - 24 hr 09/24/23 20:00 09/25/23 07:50 Temperature 97.7 F 98.0 F Pulse Rate 92 90 Respiratory Rate 15 20 Blood Pressure 111/73 113/65 Pulse Oximetry 100 96 Oxygen Delivery Method Room Air Room Air BMI result Body Mass Index 24.8 Labs 09/16/23 15:30 09/16/23 15:30 Medications Medications Current Medications Acetaminophen (Acetaminophen 325 Mg Tablet) 650 mg PO Q6H PRN PRN Reason: Headache/Pain Mild Scale (1-3) Al Hydroxide/Mg Hydroxide (Magnesium Hydrox/Alum Hydrox 30 Ml Oral.Susp) 30 ml PO Q6H PRN PRN Reason: Heartburn/Nausea Haloperidol (Haloperidol 5 Mg Tablet) 5 mg PO BID [facility] Last Admin: 09/25/23 09:04 Dose: 5 mg Hydrochlorothiazide (Hydrochlorothiazide 12.5 Mg Tablet) 12.5 mg PO DAILY [facility]; Protocol Last Admin: 09/25/23 09:04 Dose: 12.5 mg Hydroxyzine HCl (Hydroxyzine Hcl 25 Mg Tablet) 25 mg PO Q6H PRN PRN Reason: Anxiety Last Admin: 09/12/23 16:59 Dose: 25 mg Hydroxyzine HCl (Hydroxyzine Hcl 10 Mg Tablet) 10 mg PO BID [facility] Last Admin: 09/25/23 09:04 Dose: 10 mg Magnesium Hydroxide (Milk Of Magnesia 30 Ml Oral.Susp) 30 ml PO DAILY PRN PRN Reason: Constipation Nicotine (Nicotine 14 Mg Patch.Td24) 14 mg TRANSDERMA DAILY [facility] Last Admin: 09/25/23 09:03 Dose: 14 mg Nicotine Polacrilex (Nicotine Polacrilex 2 Mg Gum) 2 mg BUCCAL Q2H PRN PRN Reason: Nicotine Cravings Last Admin: 09/24/23 21:04 Dose: 2 mg Olanzapine (Olanzapine 10 Mg Tablet) 10 mg PO BEDTIME [facility] Last Admin: 09/24/23 21:02 Dose: 10 mg Trazodone HCl (Trazodone Hcl 50 Mg Tablet) 50 mg PO BEDTIME MRX1 PRN PRN Reason: Insomnia Last Admin: 09/24/23 21:02 Dose: 50 mg Allergies Allergies Allergy/AdvReac Type Severity Reaction Status Date / Time No Known Allergies Allergy Verified 09/04/23 23:31 Assessment & Plan Assessment & Plan (1) Acute psychosis: Status: Acute Code(s): F23 - Brief psychotic disorder (2) Schizophrenia: Status: Acute Code(s): F20.9 - Schizophrenia, unspecified (3) Alcohol use disorder: Status: Acute Code(s): F10.90 - Alcohol use, unspecified, uncomplicated (4) Cannabis use disorder: Status: Acute Code(s): F12.90 - Cannabis use, unspecified, uncomplicated Plan 27 yo male, presents with acute psychosis, ?schizophrenia, alcohol and cannabis use disorder. Pt is a very poor historian, focused on leaving the hospital and with intermittent resistance to medications. By hx, pt does well on regime which we will keep, holding the antidepressant while his psychotic sx are better managed. Will use lorazepam for detox with supportive MVI, folic acid and thiamine. Plan: Collateral Contact Olanzapine prn Lorazepam detox per [facility] MVI, Thiamine, Folic Acid Continue Risperdal Encourage alliance building add hydroxyzine 10mg BID for anxiety 09/08/23 continue treatmetn plan 09/09/23 Increase Risperdal to 3 mg bid Encouarge pt to remain in treatment and sign a conditional voluntary 09/10/23 Pt has signed a CV Continue current regime and plan of care 09/11/23 Begin one to one special due to intrusive sx. Continue regime 09/12/23 Discontinue Risperdal Haldol 5 mg bid and bid prn psychosis Benztropine 0.5 mg bid Lorazepam 0.25 mg bid Lorazepam prn for anxiety, agitation Repeat CBCD 09/13 (hx of increase of WBC) Transfer to M3 as pt's symptoms have angered his peers Continue one to one 09/13: Patient presents calm, cooperative. Does not present with intrusive behavior; 1:1 DC'd, placed on 5 minute safety checks. Patient reports feeling good today;he feels the medications are slowing me down .Pt states he does not recall going into other people's room's or any previous behavior from M5. denies SI/HI/VH/AH. Continue current tx plan. Consider BYRNE. 09/14:Continue current management and treatment plan. 09/15: Continue current management and treatment plan. 09/16: Patient presents guarded during 1:1. T/W asked pt how he was feeling today, pt replied, I don't know what that means . Pt reports he feels some confusion but was not able to elaborate. Pt stated, I don't want to make eye contact with any females. I don't know why anyone would care if they have a boyfriend or . He states he does not recall touching any other patients. Continues on 1:1. He reports sleeping well. Denies SI/HI/VH/AH. T/W spoke with pt's parents when they visited pt today; mother reported patient appears improved since the last time she visited patient a few days ago. 09/17: T/W and met with patient in unit office. Patient presents guarded during 1:1. Patient reports feeling good today; pt stated, I don't remember why I'm in here, the police showed up at my door . Pt was asked why he feels the need to touch other people; pt stated, because they are cute. Can White people touch Asians? because I have a niece and nephew who are White and no one better touch them . Patient was educated regarding consent however he appeared confused and stated, can Black people touch White people? . denies SI/HI/VH/AH. Haldol increased to 10mg PO BID. if no improvement in thought process, will consider starting zyprexa and tapering haldol. 09/18: Patient presents guarded during 1:1. Patient reports feeling okay today. Pt reports he has been keeping to himself; continues to present with some confusion. Continues on 1:1 safety checks. denies SI/HI/VH/AH. denies any side effects from increase in Haldol. Continue current tx plan. 09/19 patient remains disorganized; continue one-to-one; continue current treatment plan 09/21 continue tx. 09/22 continue tx. 09/23: guarded, flat affect. Pt reports feeling good ; reports he sleeps a lot because it feels good . Responds with short answers. Pt reports this is not how he is at baseline. discussed changing his medication from Haldol to Zyprexa. Risks/benefits discussed. Haldol decreased to 5mg PO BID Start: zyprexa 10mg PO bedtime Family meeting scheduled for this Saturday09/25/23. 09/24: Guarded, flat affect. Isolative. Napping most of day. Pt stated, I feel okay. The medication doesn't make me sleepy. I just like to sleep . denies SI/HI/VH/AH. 09/25: family meeting with pt and his parents; social media marketing specialist, Pedrito, present. Patient reports feeling better with decreasing the Haldol . Patient presents with wider range of affect and more talkative than days prior. Patient's mother stated she also believed patient appeared slightly improved since the last time she visited. Pt taken off 1:1; will trial 5 minute checks. Patient reports he plans on keeping to myself and not bothering anyone . Will continue to increase zyprexa dosage. Patient educated on: diagnosis, medication risk/benefits and therapeutic strategies Guardian/Caregiver educated on: diagnosis, medication risk/benefits and therapeutic strategies Informed Consent: understands Reason for continued inpatient stay Substantial Risk for: med/psych decompensation Time Spent With Patient Time: Total time managing care of this patient today _30___ minutes.
[2023-09-25] MEDS: Nicotine Polacrilex 2 MG GUM BUCCAL ×3 (16:27→21:55)
[2023-09-25 19:41] VITALS: BP 126/83; PULSE 110; TEMP 36.2; O2SAT 97
[2023-09-25] MEDS: OLANZapine 7.5 MG TABLET 15 MG PO (21:55)
[2023-09-26] MEDS: hydrOXYzine HCL 25 MG TABLET PO ×2 (00:34→20:54)
[2023-09-26] MEDS: traZODone HCL 50 MG TABLET PO ×2 (00:34→20:54)
[2023-09-26 07:00] VITALS: BMI 25.0
[2023-09-26 07:56] VITALS: BP 123/75; PULSE 95; RESP 18; TEMP 36.3; O2SAT 100
--- NOTE | 2023-09-26 09:15 | HO.PSYCHPN ---
Subjective Subjective Date of Service: 09/26/23 Reason For Visit: acute psychosis Subjective Notes: Conditional Voluntary Interim History: Reviewed with . Patient reports he feels he is doing well . Pt stated, I'm hoping to go home next week . Continue to present with wider range of affect; smiling and laughing at times during conversation. This has not happened since treating him. Patient doing well on 5 minute checks; remains in behavioral control. denies SI/HI/VH/AH. Zyprexa 15mg PO bedtime; Haldol DC'd. Medication Compliance: Yes Side effects from medications: No Attending Groups: No Review of Systems Constitutional: Reports as per HPI Eyes: Reports as per HPI Reports as per HPI Cardiovascular: Reports as per HPI Respiratory: Reports as per HPI Gastrointestinal: Reports as per HPI Genitourinary: Reports as per HPI Musculoskeletal: Reports as per HPI Skin/Breast: Reports as per HPI Reports as per HPI Psychiatric: Reports as per HPI Endocrine: Reports as per HPI Hematologic/Lymphatic: Reports as per HPI Allergic/Immunologic: Reports as per HPI Mental Status Exam Mental Status Exam Narrative: Pt is alert and oriented; behavior is guarded and calm; dressed in casual attire; mood is described as good ; eye contact appropriate; thought process is linear; Thought content is on discharge; denies SI/HI. There is no evidence of perceptual disturbance. Patients insight and judgment are poor but improving. Patient Appearance: Appropriate Patient Orientation: Person and Place Level of Consciousness: Awake and Alert Patient Behavior: Guarded, Talkative, Cooperative, Passive, Suspicious, Wandering, Anxious, Distractible, Confused (at times) and Good Eye Contact Mood Description: Blunted Affect Description: Blunted Patient Cognition Impaired: No Ability to Follow Directions: Fair Speech Pattern: Spontaneous Speech, Soft-Spoken and Delayed Memory Description: Remote Impaired Diagnostics Vital Signs (24Hr): Vital Signs - 24 hr 09/25/23 19:41 09/26/23 07:56 Temperature 97.1 F 97.4 F Pulse Rate 110 H 95 Respiratory Rate 18 Blood Pressure 126/83 123/75 Pulse Oximetry 97 100 Oxygen Delivery Method Room Air Room Air BMI result Body Mass Index 24.8 Labs 09/26/23 13:26 09/26/23 13:26 Medications Medications Current Medications Acetaminophen (Acetaminophen 325 Mg Tablet) 650 mg PO Q6H PRN PRN Reason: Headache/Pain Mild Scale (1-3) Al Hydroxide/Mg Hydroxide (Magnesium Hydrox/Alum Hydrox 30 Ml Oral.Susp) 30 ml PO Q6H PRN PRN Reason: Heartburn/Nausea Haloperidol (Haloperidol 5 Mg Tablet) 5 mg PO DAILY SYLVESTER Hydrochlorothiazide (Hydrochlorothiazide 12.5 Mg Tablet) 12.5 mg PO DAILY SYLVESTER; Protocol Last Admin: 09/25/23 09:04 Dose: 12.5 mg Hydroxyzine HCl (Hydroxyzine Hcl 25 Mg Tablet) 25 mg PO Q6H PRN PRN Reason: Anxiety Last Admin: 09/26/23 00:34 Dose: 25 mg Magnesium Hydroxide (Milk Of Magnesia 30 Ml Oral.Susp) 30 ml PO DAILY PRN PRN Reason: Constipation Nicotine (Nicotine 14 Mg Patch.Td24) 14 mg TRANSDERMA DAILY SYLVESTER Last Admin: 09/25/23 09:03 Dose: 14 mg Nicotine Polacrilex (Nicotine Polacrilex 2 Mg Gum) 2 mg BUCCAL Q2H PRN PRN Reason: Nicotine Cravings Last Admin: 09/25/23 21:55 Dose: 2 mg Olanzapine (Olanzapine 7.5 Mg Tablet) 15 mg PO BEDTIME SYLVESTER Last Admin: 09/25/23 21:55 Dose: 15 mg Trazodone HCl (Trazodone Hcl 50 Mg Tablet) 50 mg PO BEDTIME MRX1 PRN PRN Reason: Insomnia Last Admin: 09/26/23 00:34 Dose: 50 mg Allergies Allergies Allergy/AdvReac Type Severity Reaction Status Date / Time No Known Allergies Allergy Verified 09/04/23 23:31 Assessment & Plan Assessment & Plan (1) Acute psychosis: Status: Acute Code(s): F23 - Brief psychotic disorder (2) Schizophrenia: Status: Acute Code(s): F20.9 - Schizophrenia, unspecified (3) Alcohol use disorder: Status: Acute Code(s): F10.90 - Alcohol use, unspecified, uncomplicated (4) Cannabis use disorder: Status: Acute Code(s): F12.90 - Cannabis use, unspecified, uncomplicated Plan 27 yo male, presents with acute psychosis, ?schizophrenia, alcohol and cannabis use disorder. Pt is a very poor historian, focused on leaving the hospital and with intermittent resistance to medications. By hx, pt does well on regime which we will keep, holding the antidepressant while his psychotic sx are better managed. Will use lorazepam for detox with supportive MVI, folic acid and thiamine. Plan: Collateral Contact Olanzapine prn Lorazepam detox per [facility]WA MVI, Thiamine, Folic Acid Continue Risperdal Encourage alliance building add hydroxyzine 10mg BID for anxiety 09/08/23 continue treatmetn plan 09/09/23 Increase Risperdal to 3 mg bid Encouarge pt to remain in treatment and sign a conditional voluntary 09/10/23 Pt has signed a CV Continue current regime and plan of care 09/11/23 Begin one to one special due to intrusive sx. Continue regime 09/12/23 Discontinue Risperdal Haldol 5 mg bid and bid prn psychosis Benztropine 0.5 mg bid Lorazepam 0.25 mg bid Lorazepam prn for anxiety, agitation Repeat CBCD 09/13 (hx of increase of WBC) Transfer to M3 as pt's symptoms have angered his peers Continue one to one 09/13: Patient presents calm, cooperative. Does not present with intrusive behavior; 1:1 DC'd, placed on 5 minute safety checks. Patient reports feeling good today;he feels the medications are slowing me down .Pt states he does not recall going into other people's room's or any previous behavior from M5. denies SI/HI/VH/AH. Continue current tx plan. Consider BYRNE. 09/14:Continue current management and treatment plan. 09/15: Continue current management and treatment plan. 09/16: Patient presents guarded during 1:1. T/W asked pt how he was feeling today, pt replied, I don't know what that means . Pt reports he feels some confusion but was not able to elaborate. Pt stated, I don't want to make eye contact with any females. I don't know why anyone would care if they have a boyfriend or . He states he does not recall touching any other patients. Continues on 1:1. He reports sleeping well. Denies SI/HI/VH/AH. T/W spoke with pt's parents when they visited pt today; mother reported patient appears improved since the last time she visited patient a few days ago. 09/17: T/W and met with patient in unit office. Patient presents guarded during 1:1. Patient reports feeling good today; pt stated, I don't remember why I'm in here, the police showed up at my door . Pt was asked why he feels the need to touch other people; pt stated, because they are cute. Can White people touch Asians? because I have a niece and nephew who are White and no one better touch them . Patient was educated regarding consent however he appeared confused and stated, can Black people touch White people? . denies SI/HI/VH/AH. Haldol increased to 10mg PO BID. if no improvement in thought process, will consider starting zyprexa and tapering haldol. 09/18: Patient presents guarded during 1:1. Patient reports feeling okay today. Pt reports he has been keeping to himself; continues to present with some confusion. Continues on 1:1 safety checks. denies SI/HI/VH/AH. denies any side effects from increase in Haldol. Continue current tx plan. 09/19 patient remains disorganized; continue one-to-one; continue current treatment plan 09/21 continue tx. 09/22 continue tx. 09/23: guarded, flat affect. Pt reports feeling good ; reports he sleeps a lot because it feels good . Responds with short answers. Pt reports this is not how he is at baseline. discussed changing his medication from Haldol to Zyprexa. Risks/benefits discussed. Haldol decreased to 5mg PO BID Start: zyprexa 10mg PO bedtime Family meeting scheduled for this Saturday09/25/23. 09/24: Guarded, flat affect. Isolative. Napping most of day. Pt stated, I feel okay. The medication doesn't make me sleepy. I just like to sleep . denies SI/HI/VH/AH. 09/25: family meeting with pt and his parents; administrator social welfare, Pedrito, present. Patient reports feeling better with decreasing the Haldol . Patient presents with wider range of affect and more talkative than days prior. Patient's mother stated she also believed patient appeared slightly improved since the last time she visited. Pt taken off 1:1; will trial 5 minute checks. Patient reports he plans on keeping to myself and not bothering anyone . Will continue to increase zyprexa dosage. 09/26: Patient reports he feels he is doing well . Pt stated, I'm hoping to go home next week . Continue to present with wider range of affect; smiling and laughing at times during conversation. This has not happened since treating him. Patient doing well on 5 minute checks; remains in behavioral control. Zyprexa increased to 15mg PO bedtime. DC'd Haldol. Patient educated on: diagnosis, medication risk/benefits and therapeutic strategies Informed Consent: understands Reason for continued inpatient stay Substantial Risk for: med/psych decompensation Time Spent With Patient Time: Total time managing care of this patient today _30___ minutes.
[2023-09-26] MEDS: Nicotine 14 MG PATCH.TD24 TRANSDERMA (09:17)
[2023-09-26] MEDS: HaloperidoL 5 MG TABLET PO (09:18)
[2023-09-26] MEDS: hydroCHLOROthiazide 12.5 MG TABLET PO (09:18)
[2023-09-26 13:30] LABS: MANUAL DIFF FLAG NO
[2023-09-26 13:33] LABS: Basophils Absolute Auto 0.1 X10*3/uL (0.0-0.2); Basophils Percent Auto 0.7 % (0-2); Eosinophils Absolute Auto 0.3 X10*3/uL (0.0-0.4); Hematocrit 42.8 % (42.0-52.0); Hemoglobin 14.2 g/dl (14.0-18.0); Imm Gran Abs Auto 0.07 X10*3/uL (0.00-0.03); Imm Gran Pct Auto 0.7 % (0.0-0.4); Lymphocytes Absolute Auto 2.6 X10*3/uL (1.2-4.9); Mean Corpuscular HGB Conc 33.2 g/dl (31.0-36.0); Mean Corpuscular Volume 96.4 fL (80.0-98.0); Mean Platelet Volume 9.2 fL (9.4-12.4); Monocytes Absolute Auto 1.4 X10*3/uL (0.1-1.2); Monocytes Percent Auto 14.8 % (2-11); Neutrophils Percent Auto 52.8 % (45-73); Platelet Count 346 X10*3/uL (160-400); Red Blood Count 4.44 X10*6/uL (4.60-5.80); Red Cell Distribution Width 12.8 % (11.0-16.0); White Blood Count 9.4 X10*3/uL (4.8-10.8)
[2023-09-26 13:39] LABS: Ammonia 38 umol/L (13-55)
[2023-09-26 13:44] LABS: Estimated Average Glucose 108 mg/dL; Hemoglobin A1c % 5.4 % (<6.0)
[2023-09-26] MEDS: Magnesium Hydrox/Alum Hydrox 30 ML ORAL.SUSP PO (13:45)
[2023-09-26 13:46] LABS: Blood Urea Nitrogen 12 mg/dL (9-16)
[2023-09-26 13:55] LABS: Alanine Aminotransferase 62 U/L (0-40); Albumin Level 4.4 g/dL (3.5-5.0); Alkaline Phosphatase 85 U/L (39-117); Anion Gap 13 (12-20); Aspartate Amino Transferase 25 U/L (5-37); Bilirubin Direct < 0.2 mg/dL (0.0-0.5); Bilirubin Total 0.2 mg/dL (0.0-1.0); Blood Urea Nitrogen 12 mg/dL (9-16); Calcium 9.4 mg/dL (8.4-10.2); Carbon Dioxide 25 mmol/L (22-29); Chloride 104 mmol/L (96-108); Cholesterol 250 mg/dL (<200); Creatinine Clr Calc Pharmacy 125.2; Estimated Glomerular Filt Rate > 60; Glucose Random 140 mg/dL (60-115); HDL Cholesterol 45 mg/dL (>40); Potassium 4.1 mmol/L (3.3-5.1); Sodium 138 mmol/L (135-145); Total Protein 7.8 g/dL (6.5-8.0); Triglycerides 432 mg/dL (<150)
[2023-09-26] MEDS: Nicotine Polacrilex 2 MG GUM BUCCAL ×3 (15:29→20:55)
[2023-09-26] MEDS: OLANZapine 7.5 MG TABLET 15 MG PO (20:54)
[2023-09-27 06:00] VITALS: BP 131/70; PULSE 91; RESP 20; TEMP 36.8; O2SAT 96
[2023-09-27] MEDS: Nicotine 14 MG PATCH.TD24 TRANSDERMA (09:03)
[2023-09-27] MEDS: hydroCHLOROthiazide 12.5 MG TABLET PO (09:03)
--- NOTE | 2023-09-27 17:34 | HO.PSYCHPN ---
Subjective Subjective Date of Service: 09/27/23 Reason For Visit: acute psychosis Interim History: Met with patient; discussed with team Patient reports that he is feeling much better. Says that his mind is clearer as wel and describes it by saying that now he can think openly and not closed in. Thinks it is the medication change that is making the difference. Saying he is getting much better sleep as well. No complaints and no request. Remains in behavioral and impulse control. Mental Status Exam Mental Status Exam Narrative: Pt behavior is cooperative, calm; dressed in casual attire; eye contact improved; mood is good and affect brighter. Speech is normal rate, volume and prosody and not pressured; no psychomotor agitation/retardation present; thought process goal oriented; thought content on feeling better; denies SI/HI. There is no evidence of perceptual disturbance and denies AVH; Patients insight and judgment are impaired but much improved. Diagnostics Vital Signs (24Hr): Vital Signs - 24 hr 09/27/23 06:00 Temperature 98.2 F Pulse Rate 91 Respiratory Rate 20 Blood Pressure 131/70 Pulse Oximetry 96 Oxygen Delivery Method Room Air BMI result Body Mass Index 25.0 Labs 09/26/23 13:26 09/26/23 13:26 Labs: Laboratory Results - last 48 hr 09/26/23 09/26/23 13:26 13:26 WBC 9.4 RBC 4.44 L Hgb 14.2 Hct 42.8 MCV 96.4 MCH 32.0 MCHC 33.2 RDW 12.8 Plt Count 346 MPV 9.2 L Immature Gran % (Auto) 0.7 H Neut % (Auto) 52.8 Lymph % (Auto) 28.0 [place] % (Auto) 14.8 H Eos % (Auto) 3.0 Baso % (Auto) 0.7 Lymph # (Auto) 2.6 [place] # (Auto) 1.4 H Eos # (Auto) 0.3 Baso # (Auto) 0.1 Abs Immat Gran (auto) 0.07 H Absolute Neuts (auto) 5.0 Absolute Nucleated RBC 0.000 Nucleated RBC % (auto) 0.0 Sodium 138 Potassium 4.1 Chloride 104 Carbon Dioxide 25 Anion Gap 13 BUN 12 12 Creatinine 0.75 Estim Creat Clear Calc 125.2 Estimated GFR > 60 Random Glucose 140 H Estimat Average Glucose 108 Hemoglobin A1c % 5.4 Calcium 9.4 Total Bilirubin 0.2 Direct Bilirubin < 0.2 AST 25 ALT 62 H Alkaline Phosphatase 85 Ammonia 38 Total Protein 7.8 Albumin 4.4 Triglycerides 432 H Cholesterol 250 H LDL Cholesterol, Calc TNP HDL Cholesterol 45 TSH 1.90 Medications Medications Current Medications Acetaminophen (Acetaminophen 325 Mg Tablet) 650 mg PO Q6H PRN PRN Reason: Headache/Pain Mild Scale (1-3) Al Hydroxide/Mg Hydroxide (Magnesium Hydrox/Alum Hydrox 30 Ml Oral.Susp) 30 ml PO Q6H PRN PRN Reason: Heartburn/Nausea Last Admin: 09/26/23 13:45 Dose: 30 ml Hydrochlorothiazide (Hydrochlorothiazide 12.5 Mg Tablet) 12.5 mg PO DAILY SYLVESTER; Protocol Last Admin: 09/27/23 09:03 Dose: 12.5 mg Hydroxyzine HCl (Hydroxyzine Hcl 25 Mg Tablet) 25 mg PO Q6H PRN PRN Reason: Anxiety Last Admin: 09/26/23 20:54 Dose: 25 mg Magnesium Hydroxide (Milk Of Magnesia 30 Ml Oral.Susp) 30 ml PO DAILY PRN PRN Reason: Constipation Nicotine (Nicotine 14 Mg Patch.Td24) 14 mg TRANSDERMA DAILY SYLVESTER Last Admin: 09/27/23 09:03 Dose: 14 mg Nicotine Polacrilex (Nicotine Polacrilex 2 Mg Gum) 2 mg BUCCAL Q2H PRN PRN Reason: Nicotine Cravings Last Admin: 09/26/23 20:55 Dose: 2 mg Olanzapine (Olanzapine 7.5 Mg Tablet) 15 mg PO BEDTIME SYLVESTER Last Admin: 09/26/23 20:54 Dose: 15 mg Trazodone HCl (Trazodone Hcl 50 Mg Tablet) 50 mg PO BEDTIME MRX1 PRN PRN Reason: Insomnia Last Admin: 09/26/23 20:54 Dose: 50 mg Allergies Allergies Allergy/AdvReac Type Severity Reaction Status Date / Time No Known Allergies Allergy Verified 09/04/23 23:31 Assessment & Plan Assessment & Plan (1) Acute psychosis: Status: Acute Code(s): F23 - Brief psychotic disorder (2) Schizophrenia: Status: Acute Code(s): F20.9 - Schizophrenia, unspecified (3) Alcohol use disorder: Status: Acute Code(s): F10.90 - Alcohol use, unspecified, uncomplicated (4) Cannabis use disorder: Status: Acute Code(s): F12.90 - Cannabis use, unspecified, uncomplicated Plan 27 yo male, presents with acute psychosis, ?schizophrenia, alcohol and cannabis use disorder. Pt is a very poor historian, focused on leaving the hospital and with intermittent resistance to medications. By hx, pt does well on regime which we will keep, holding the antidepressant while his psychotic sx are better managed. Will use lorazepam for detox with supportive MVI, folic acid and thiamine. Plan: Collateral Contact Olanzapine prn Lorazepam detox per [facility] MVI, Thiamine, Folic Acid Continue Risperdal Encourage alliance building add hydroxyzine 10mg BID for anxiety 09/08/23 continue treatmetn plan 09/09/23 Increase Risperdal to 3 mg bid Encouarge pt to remain in treatment and sign a conditional voluntary 09/10/23 Pt has signed a CV Continue current regime and plan of care 09/11/23 Begin one to one special due to intrusive sx. Continue regime 09/12/23 Discontinue Risperdal Haldol 5 mg bid and bid prn psychosis Benztropine 0.5 mg bid Lorazepam 0.25 mg bid Lorazepam prn for anxiety, agitation Repeat CBCD 09/13 (hx of increase of WBC) Transfer to M3 as pt's symptoms have angered his peers Continue one to one 09/13: Patient presents calm, cooperative. Does not present with intrusive behavior; 1:1 DC'd, placed on 5 minute safety checks. Patient reports feeling good today;he feels the medications are slowing me down .Pt states he does not recall going into other people's room's or any previous behavior from M5. denies SI/HI/VH/AH. Continue current tx plan. Consider BYRNE. 09/14:Continue current management and treatment plan. 09/15: Continue current management and treatment plan. 09/16: Patient presents guarded during 1:1. T/W asked pt how he was feeling today, pt replied, I don't know what that means . Pt reports he feels some confusion but was not able to elaborate. Pt stated, I don't want to make eye contact with any females. I don't know why anyone would care if they have a boyfriend or . He states he does not recall touching any other patients. Continues on 1:1. He reports sleeping well. Denies SI/HI/VH/AH. T/W spoke with pt's parents when they visited pt today; mother reported patient appears improved since the last time she visited patient a few days ago. 09/17: T/W and met with patient in unit office. Patient presents guarded during 1:1. Patient reports feeling good today; pt stated, I don't remember why I'm in here, the police showed up at my door . Pt was asked why he feels the need to touch other people; pt stated, because they are cute. Can White people touch Asians? because I have a niece and nephew who are White and no one better touch them . Patient was educated regarding consent however he appeared confused and stated, can Black people touch White people? . denies SI/HI/VH/AH. Haldol increased to 10mg PO BID. if no improvement in thought process, will consider starting zyprexa and tapering haldol. 09/18: Patient presents guarded during 1:1. Patient reports feeling okay today. Pt reports he has been keeping to himself; continues to present with some confusion. Continues on 1:1 safety checks. denies SI/HI/VH/AH. denies any side effects from increase in Haldol. Continue current tx plan. 09/19 patient remains disorganized; continue one-to-one; continue current treatment plan 09/20 patient open to medication changes; does not know why he is here and has low insight into illness however show some improvement bike knowledge in his need for medications -will defer to primary team regarding medication changes though patient is open to med management, including clozapine and weekly blood draws 09/21 continue tx. 09/22 continue tx. 09/23: guarded, flat affect. Pt reports feeling good ; reports he sleeps a lot because it feels good . Responds with short answers. Pt reports this is not how he is at baseline. discussed changing his medication from Haldol to Zyprexa. Risks/benefits discussed. Haldol decreased to 5mg PO BID Start: zyprexa 10mg PO bedtime Family meeting scheduled for this Saturday09/25/23. 09/24: Guarded, flat affect. Isolative. Napping most of day. Pt stated, I feel okay. The medication doesn't make me sleepy. I just like to sleep . denies SI/HI/VH/AH. 09/25: family meeting with pt and his parents; secondary social studies teacher, Pedrito, present. Patient reports feeling better with decreasing the Haldol . Patient presents with wider range of affect and more talkative than days prior. Patient's mother stated she also believed patient appeared slightly improved since the last time she visited. Pt taken off 1:1; will trial 5 minute checks. Patient reports he plans on keeping to myself and not bothering anyone . Will continue to increase zyprexa dosage. 09/26: Patient reports he feels he is doing well . Pt stated, I'm hoping to go home next week . Continue to present with wider range of affect; smiling and laughing at times during conversation. This has not happened since treating him. Patient doing well on 5 minute checks; remains in behavioral control. Zyprexa increased to 15mg PO bedtime. DC'd Haldol. 09/27 Patient reports that he is feeling much better. Says that his mind is clearer as wel and describes it by saying that now he can think openly and not closed in. Thinks it is the medication change that is making the difference. Saying he is getting much better sleep as well. No complaints and no request. Remains in behavioral and impulse control. Reason for continued inpatient stay Substantial Risk for: rapid decompensation Time Spent With Patient Time: Total time managing care of this patient today ____ minutes.
[2023-09-27] MEDS: Nicotine Polacrilex 2 MG GUM BUCCAL (18:51)
[2023-09-27 21:15] VITALS: BP 131/83; PULSE 103; TEMP 36.7; O2SAT 98
[2023-09-27] MEDS: OLANZapine 7.5 MG TABLET 15 MG PO (22:16)
[2023-09-27] MEDS: hydrOXYzine HCL 25 MG TABLET PO (22:21)
[2023-09-27] MEDS: traZODone HCL 50 MG TABLET PO (22:21)
[2023-09-28 06:00] VITALS: BP 105/57; PULSE 91; TEMP 36.2; O2SAT 97
[2023-09-28] MEDS: Nicotine 14 MG PATCH.TD24 TRANSDERMA (09:09)
[2023-09-28] MEDS: hydroCHLOROthiazide 12.5 MG TABLET PO (09:10)
--- NOTE | 2023-09-28 13:09 | HO.PSYCHPN ---
Subjective Subjective Date of Service: 09/28/23 Reason For Visit: acute psychosis Healthcare Proxy: No Guardianship: No Medical Problems Affecting Mental Status: No Interim History: met with patient. Discussed with Nursing. Now on 5 minutes checks. Some groups. Med adherent. Brighter. With continuity writer was in his room. Minimal engagement. Denied depression, SI, med concerns or psychosis. Sleeping okay. Medication Compliance: Yes Side effects from medications: No Attending Groups: Intermittent Review of Systems Acute medical concerns: No Review of Systems Review of Systems Nothing acute Mental Status Exam Mental Status Exam Narrative: Pt behavior is cooperative, calm; dressed in casual attire; eye contact improved; mood is ok and affect brighter. Speech is normal rate, volume and prosody low; no psychomotor agitation/retardation present; thought process goal oriented; thought content on feeling better; denies SI/HI. There is no evidence of perceptual disturbance and denies AVH; Patients insight and judgment are improving. Diagnostics Vital Signs (24Hr): Vital Signs - 24 hr 09/27/23 21:15 09/28/23 06:00 Temperature 98.1 F 97.1 F Pulse Rate 103 H 91 Blood Pressure 131/83 105/57 L Pulse Oximetry 98 97 Oxygen Delivery Method Room Air Room Air BMI result Body Mass Index 25.0 Labs 09/26/23 13:26 09/26/23 13:26 Labs: Laboratory Results - last 48 hr 09/26/23 09/26/23 13:26 13:26 WBC 9.4 RBC 4.44 L Hgb 14.2 Hct 42.8 MCV 96.4 MCH 32.0 MCHC 33.2 RDW 12.8 Plt Count 346 MPV 9.2 L Immature Gran % (Auto) 0.7 H Neut % (Auto) 52.8 Lymph % (Auto) 28.0 [place] % (Auto) 14.8 H Eos % (Auto) 3.0 Baso % (Auto) 0.7 Lymph # (Auto) 2.6 [place] # (Auto) 1.4 H Eos # (Auto) 0.3 Baso # (Auto) 0.1 Abs Immat Gran (auto) 0.07 H Absolute Neuts (auto) 5.0 Absolute Nucleated RBC 0.000 Nucleated RBC % (auto) 0.0 Sodium 138 Potassium 4.1 Chloride 104 Carbon Dioxide 25 Anion Gap 13 BUN 12 12 Creatinine 0.75 Estim Creat Clear Calc 125.2 Estimated GFR > 60 Random Glucose 140 H Estimat Average Glucose 108 Hemoglobin A1c % 5.4 Calcium 9.4 Total Bilirubin 0.2 Direct Bilirubin < 0.2 AST 25 ALT 62 H Alkaline Phosphatase 85 Ammonia 38 Total Protein 7.8 Albumin 4.4 Triglycerides 432 H Cholesterol 250 H LDL Cholesterol, Calc TNP HDL Cholesterol 45 TSH 1.90 Medications Medications Current Medications Acetaminophen (Acetaminophen 325 Mg Tablet) 650 mg PO Q6H PRN PRN Reason: Headache/Pain Mild Scale (1-3) Al Hydroxide/Mg Hydroxide (Magnesium Hydrox/Alum Hydrox 30 Ml Oral.Susp) 30 ml PO Q6H PRN PRN Reason: Heartburn/Nausea Last Admin: 09/26/23 13:45 Dose: 30 ml Hydrochlorothiazide (Hydrochlorothiazide 12.5 Mg Tablet) 12.5 mg PO DAILY [facility]; Protocol Last Admin: 09/28/23 09:10 Dose: 12.5 mg Hydroxyzine HCl (Hydroxyzine Hcl 25 Mg Tablet) 25 mg PO Q6H PRN PRN Reason: Anxiety Last Admin: 09/27/23 22:21 Dose: 25 mg Magnesium Hydroxide (Milk Of Magnesia 30 Ml Oral.Susp) 30 ml PO DAILY PRN PRN Reason: Constipation Nicotine (Nicotine 14 Mg Patch.Td24) 14 mg TRANSDERMA DAILY [facility] Last Admin: 09/28/23 09:09 Dose: 14 mg Nicotine Polacrilex (Nicotine Polacrilex 2 Mg Gum) 2 mg BUCCAL Q2H PRN PRN Reason: Nicotine Cravings Last Admin: 09/27/23 18:51 Dose: 2 mg Olanzapine (Olanzapine 7.5 Mg Tablet) 15 mg PO BEDTIME [facility] Last Admin: 09/27/23 22:16 Dose: 15 mg Trazodone HCl (Trazodone Hcl 50 Mg Tablet) 50 mg PO BEDTIME MRX1 PRN PRN Reason: Insomnia Last Admin: 09/27/23 22:21 Dose: 50 mg Allergies Allergies Allergy/AdvReac Type Severity Reaction Status Date / Time No Known Allergies Allergy Verified 09/04/23 23:31 Assessment & Plan Assessment & Plan (1) Acute psychosis: Status: Acute Code(s): F23 - Brief psychotic disorder (2) Schizophrenia: Status: Acute Code(s): F20.9 - Schizophrenia, unspecified (3) Alcohol use disorder: Status: Acute Code(s): F10.90 - Alcohol use, unspecified, uncomplicated (4) Cannabis use disorder: Status: Acute Code(s): F12.90 - Cannabis use, unspecified, uncomplicated Plan 27 yo male, presents with acute psychosis, ?schizophrenia, alcohol and cannabis use disorder. Pt is a very poor historian, focused on leaving the hospital and with intermittent resistance to medications. By hx, pt does well on regime which we will keep, holding the antidepressant while his psychotic sx are better managed. Will use lorazepam for detox with supportive MVI, folic acid and thiamine. Plan: Collateral Contact Olanzapine prn Lorazepam detox per CIWA MVI, Thiamine, Folic Acid Continue Risperdal Encourage alliance building add hydroxyzine 10mg BID for anxiety 09/08/23 continue treatmetn plan 09/09/23 Increase Risperdal to 3 mg bid Encouarge pt to remain in treatment and sign a conditional voluntary 09/10/23 Pt has signed a CV Continue current regime and plan of care 09/11/23 Begin one to one special due to intrusive sx. Continue regime 09/12/23 Discontinue Risperdal Haldol 5 mg bid and bid prn psychosis Benztropine 0.5 mg bid Lorazepam 0.25 mg bid Lorazepam prn for anxiety, agitation Repeat CBCD 09/13 (hx of increase of WBC) Transfer to M3 as pt's symptoms have angered his peers Continue one to one 09/13: Patient presents calm, cooperative. Does not present with intrusive behavior; 1:1 DC'd, placed on 5 minute safety checks. Patient reports feeling good today;he feels the medications are slowing me down .Pt states he does not recall going into other people's room's or any previous behavior from M5. denies SI/HI/VH/AH. Continue current tx plan. Consider BYRNE. 09/14:Continue current management and treatment plan. 09/15: Continue current management and treatment plan. 09/16: Patient presents guarded during 1:1. T/W asked pt how he was feeling today, pt replied, I don't know what that means . Pt reports he feels some confusion but was not able to elaborate. Pt stated, I don't want to make eye contact with any females. I don't know why anyone would care if they have a boyfriend or . He states he does not recall touching any other patients. Continues on 1:1. He reports sleeping well. Denies SI/HI/VH/AH. T/W spoke with pt's parents when they visited pt today; mother reported patient appears improved since the last time she visited patient a few days ago. 09/17: T/W and met with patient in unit office. Patient presents guarded during 1:1. Patient reports feeling good today; pt stated, I don't remember why I'm in here, the police showed up at my door . Pt was asked why he feels the need to touch other people; pt stated, because they are cute. Can White people touch Asians? because I have a niece and nephew who are White and no one better touch them . Patient was educated regarding consent however he appeared confused and stated, can Black people touch White people? . denies SI/HI/VH/AH. Haldol increased to 10mg PO BID. if no improvement in thought process, will consider starting zyprexa and tapering haldol. 09/18: Patient presents guarded during 1:1. Patient reports feeling okay today. Pt reports he has been keeping to himself; continues to present with some confusion. Continues on 1:1 safety checks. denies SI/HI/VH/AH. denies any side effects from increase in Haldol. Continue current tx plan. 09/19 patient remains disorganized; continue one-to-one; continue current treatment plan 09/20 patient open to medication changes; does not know why he is here and has low insight into illness however show some improvement bike knowledge in his need for medications -will defer to primary team regarding medication changes though patient is open to med management, including clozapine and weekly blood draws 09/21 continue tx. 09/22 continue tx. 09/23: guarded, flat affect. Pt reports feeling good ; reports he sleeps a lot because it feels good . Responds with short answers. Pt reports this is not how he is at baseline. discussed changing his medication from Haldol to Zyprexa. Risks/benefits discussed. Haldol decreased to 5mg PO BID Start: zyprexa 10mg PO bedtime Family meeting scheduled for this Saturday09/25/23. 11/28: Guarded, flat affect. Isolative. Napping most of day. Pt stated, I feel okay. The medication doesn't make me sleepy. I just like to sleep . denies SI/HI/VH/AH. 09/25: family meeting with pt and his parents; public health social worker, Pedrito, present. Patient reports feeling better with decreasing the Haldol . Patient presents with wider range of affect and more talkative than days prior. Patient's mother stated she also believed patient appeared slightly improved since the last time she visited. Pt taken off 1:1; will trial 5 minute checks. Patient reports he plans on keeping to myself and not bothering anyone . Will continue to increase zyprexa dosage. 09/26: Patient reports he feels he is doing well . Pt stated, I'm hoping to go home next week . Continue to present with wider range of affect; smiling and laughing at times during conversation. This has not happened since treating him. Patient doing well on 5 minute checks; remains in behavioral control. Zyprexa increased to 15mg PO bedtime. DC'd Haldol. 09/27 Patient reports that he is feeling much better. Says that his mind is clearer as wel and describes it by saying that now he can think openly and not closed in. Thinks it is the medication change that is making the difference. Saying he is getting much better sleep as well. No complaints and no request. Remains in behavioral and impulse control. 09/28/2023: No changes to current plan Reason for continued inpatient stay Substantial Risk for: rapid decompensation Time Spent With Patient Time: Total time managing care of this patient today ____ minutes.
[2023-09-28] MEDS: Nicotine Polacrilex 2 MG GUM BUCCAL ×2 (19:01→22:41)
[2023-09-28] MEDS: OLANZapine 7.5 MG TABLET 15 MG PO (21:36)
[2023-09-28 21:38] VITALS: BP 118/68; PULSE 100; TEMP 36.7; O2SAT 96
[2023-09-29 07:56] VITALS: BP 115/57; PULSE 94; TEMP 35.9; O2SAT 98
[2023-09-29] MEDS: Nicotine 14 MG PATCH.TD24 TRANSDERMA (09:13)
[2023-09-29] MEDS: hydroCHLOROthiazide 12.5 MG TABLET PO (09:13)
--- NOTE | 2023-09-29 10:13 | HO.PSYCHPN ---
Subjective Subjective Date of Service: 09/29/23 Reason For Visit: acute psychosis Interim History: Minimal engagement. Isolative in room. Encouraged to spend time outside her room. Med adherent. Denied depression, SI, med concerns or psychosis. Sleeping okay. Medication Compliance: Yes Side effects from medications: No Attending Groups: Intermittent Review of Systems Acute medical concerns: No Review of Systems Review of Systems Nothing acute Mental Status Exam Mental Status Exam Narrative: In room. Isolative. Self-care slightly limited. Alert and oriented. Minimal engagement. Denies depression SI HI agitation or psychosis. Insight and judgment improving Diagnostics Vital Signs (24Hr): Vital Signs - 24 hr 09/28/23 21:38 09/29/23 07:56 Temperature 98.1 F 96.7 F L Pulse Rate 100 94 Blood Pressure 118/68 115/57 L Pulse Oximetry 96 98 Oxygen Delivery Method Room Air Room Air BMI result Body Mass Index 25.0 Labs 09/26/23 13:26 09/26/23 13:26 Medications Medications Current Medications Acetaminophen (Acetaminophen 325 Mg Tablet) 650 mg PO Q6H PRN PRN Reason: Headache/Pain Mild Scale (1-3) Al Hydroxide/Mg Hydroxide (Magnesium Hydrox/Alum Hydrox 30 Ml Oral.Susp) 30 ml PO Q6H PRN PRN Reason: Heartburn/Nausea Last Admin: 09/26/23 13:45 Dose: 30 ml Hydrochlorothiazide (Hydrochlorothiazide 12.5 Mg Tablet) 12.5 mg PO DAILY [facility]; Protocol Last Admin: 09/29/23 09:13 Dose: 12.5 mg Hydroxyzine HCl (Hydroxyzine Hcl 25 Mg Tablet) 25 mg PO Q6H PRN PRN Reason: Anxiety Last Admin: 09/27/23 22:21 Dose: 25 mg Magnesium Hydroxide (Milk Of Magnesia 30 Ml Oral.Susp) 30 ml PO DAILY PRN PRN Reason: Constipation Nicotine (Nicotine 14 Mg Patch.Td24) 14 mg TRANSDERMA DAILY [facility] Last Admin: 09/29/23 09:13 Dose: 14 mg Nicotine Polacrilex (Nicotine Polacrilex 2 Mg Gum) 2 mg BUCCAL Q2H PRN PRN Reason: Nicotine Cravings Last Admin: 09/28/23 22:41 Dose: 2 mg Olanzapine (Olanzapine 7.5 Mg Tablet) 15 mg PO BEDTIME [facility] Last Admin: 09/28/23 21:36 Dose: 15 mg Trazodone HCl (Trazodone Hcl 50 Mg Tablet) 50 mg PO BEDTIME MRX1 PRN PRN Reason: Insomnia Last Admin: 09/27/23 22:21 Dose: 50 mg Allergies Allergies Allergy/AdvReac Type Severity Reaction Status Date / Time No Known Allergies Allergy Verified 09/04/23 23:31 Assessment & Plan Assessment & Plan (1) Acute psychosis: Status: Acute Code(s): F23 - Brief psychotic disorder (2) Schizophrenia: Status: Acute Code(s): F20.9 - Schizophrenia, unspecified (3) Alcohol use disorder: Status: Acute Code(s): F10.90 - Alcohol use, unspecified, uncomplicated (4) Cannabis use disorder: Status: Acute Code(s): F12.90 - Cannabis use, unspecified, uncomplicated Plan 27 yo male, presents with acute psychosis, ?schizophrenia, alcohol and cannabis use disorder. Pt is a very poor historian, focused on leaving the hospital and with intermittent resistance to medications. By hx, pt does well on regime which we will keep, holding the antidepressant while his psychotic sx are better managed. Will use lorazepam for detox with supportive MVI, folic acid and thiamine. Plan: Collateral Contact Olanzapine prn Lorazepam detox per [facility] MVI, Thiamine, Folic Acid Continue Risperdal Encourage alliance building add hydroxyzine 10mg BID for anxiety 09/08/23 continue treatmetn plan 09/09/23 Increase Risperdal to 3 mg bid Encouarge pt to remain in treatment and sign a conditional voluntary 09/10/23 Pt has signed a CV Continue current regime and plan of care 09/11/23 Begin one to one special due to intrusive sx. Continue regime 09/12/23 Discontinue Risperdal Haldol 5 mg bid and bid prn psychosis Benztropine 0.5 mg bid Lorazepam 0.25 mg bid Lorazepam prn for anxiety, agitation Repeat CBCD 09/13 (hx of increase of WBC) Transfer to M3 as pt's symptoms have angered his peers Continue one to one 09/13: Patient presents calm, cooperative. Does not present with intrusive behavior; 1:1 DC'd, placed on 5 minute safety checks. Patient reports feeling good today;he feels the medications are slowing me down .Pt states he does not recall going into other people's room's or any previous behavior from M5. denies SI/HI/VH/AH. Continue current tx plan. Consider [facility]RNE. 09/14:Continue current management and treatment plan. 09/15: Continue current management and treatment plan. 09/16: Patient presents guarded during 1:1. T/W asked pt how he was feeling today, pt replied, I don't know what that means . Pt reports he feels some confusion but was not able to elaborate. Pt stated, I don't want to make eye contact with any females. I don't know why anyone would care if they have a boyfriend or . He states he does not recall touching any other patients. Continues on 1:1. He reports sleeping well. Denies SI/HI/VH/AH. T/W spoke with pt's parents when they visited pt today; mother reported patient appears improved since the last time she visited patient a few days ago. 09/17: T/W and met with patient in unit office. Patient presents guarded during 1:1. Patient reports feeling good today; pt stated, I don't remember why I'm in here, the police showed up at my door . Pt was asked why he feels the need to touch other people; pt stated, because they are cute. Can White people touch Asians? because I have a niece and nephew who are White and no one better touch them . Patient was educated regarding consent however he appeared confused and stated, can Black people touch White people? . denies SI/HI/VH/AH. Haldol increased to 10mg PO BID. if no improvement in thought process, will consider starting zyprexa and tapering haldol. 09/18: Patient presents guarded during 1:1. Patient reports feeling okay today. Pt reports he has been keeping to himself; continues to present with some confusion. Continues on 1:1 safety checks. denies SI/HI/VH/AH. denies any side effects from increase in Haldol. Continue current tx plan. 09/19 patient remains disorganized; continue one-to-one; continue current treatment plan 09/20 patient open to medication changes; does not know why he is here and has low insight into illness however show some improvement bike knowledge in his need for medications -will defer to primary team regarding medication changes though patient is open to med management, including clozapine and weekly blood draws 09/21 continue tx. 09/22 continue tx. 09/23: guarded, flat affect. Pt reports feeling good ; reports he sleeps a lot because it feels good . Responds with short answers. Pt reports this is not how he is at baseline. discussed changing his medication from Haldol to Zyprexa. Risks/benefits discussed. Haldol decreased to 5mg PO BID Start: zyprexa 10mg PO bedtime Family meeting scheduled for this Saturday09/25/23. 09/24: Guarded, flat affect. Isolative. Napping most of day. Pt stated, I feel okay. The medication doesn't make me sleepy. I just like to sleep . denies SI/HI/VH/AH. 09/25: family meeting with pt and his parents; foster care social worker, Pedrito, present. Patient reports feeling better with decreasing the Haldol . Patient presents with wider range of affect and more talkative than days prior. Patient's mother stated she also believed patient appeared slightly improved since the last time she visited. Pt taken off 1:1; will trial 5 minute checks. Patient reports he plans on keeping to myself and not bothering anyone . Will continue to increase zyprexa dosage. 09/26: Patient reports he feels he is doing well . Pt stated, I'm hoping to go home next week . Continue to present with wider range of affect; smiling and laughing at times during conversation. This has not happened since treating him. Patient doing well on 5 minute checks; remains in behavioral control. Zyprexa increased to 15mg PO bedtime. DC'd Haldol. 09/27 Patient reports that he is feeling much better. Says that his mind is clearer as wel and describes it by saying that now he can think openly and not closed in. Thinks it is the medication change that is making the difference. Saying he is getting much better sleep as well. No complaints and no request. Remains in behavioral and impulse control. 09/29/2023: No changes to current plan Reason for continued inpatient stay Substantial Risk for: inability to function and rapid decompensation Time Spent With Patient Time: Total time managing care of this patient today ____ minutes.
[2023-09-29] MEDS: Nicotine Polacrilex 2 MG GUM BUCCAL ×2 (15:31→20:28)
[2023-09-29 19:45] VITALS: BP 137/90; PULSE 102; RESP 18; TEMP 36.6; O2SAT 99
[2023-09-29] MEDS: OLANZapine 7.5 MG TABLET 15 MG PO (22:03)
[2023-09-30 07:15] VITALS: BP 112/66; PULSE 95; RESP 16; TEMP 36.4; O2SAT 97
[2023-09-30] MEDS: Nicotine 14 MG PATCH.TD24 TRANSDERMA (09:31)
[2023-09-30] MEDS: hydroCHLOROthiazide 12.5 MG TABLET PO (09:31)
--- NOTE | 2023-09-30 16:54 | HO.PSYCHPN ---
Subjective Subjective Date of Service: 09/30/23 Reason For Visit: acute psychosis Interim History: Patient with espino range of affect has been out and about more in the milieu. Has seemed with better concentration more organized in thought feeling much clearer. No gross side effects mood has significantly improved Medication Compliance: Yes Side effects from medications: No Attending Groups: Intermittent Review of Systems Acute medical concerns: No Mental Status Exam Mental Status Exam Narrative: Patient casually dressed cooperative mood pleasant with full affect. Patient future oriented denied hallucinations no gross paranoia he was concrete but more logical in thought future oriented no thoughts of harm to himself or others states he is feeling much improved with medication no SI or HI Diagnostics Vital Signs (24Hr): Vital Signs - 24 hr 09/29/23 19:45 09/30/23 07:15 Temperature 97.9 F 97.5 F Pulse Rate 102 H 95 Respiratory Rate 18 16 Blood Pressure 137/90 H 112/66 Pulse Oximetry 99 97 Oxygen Delivery Method Room Air Room Air BMI result Body Mass Index 25.0 Labs 09/26/23 13:26 09/26/23 13:26 Medications Medications Current Medications Acetaminophen (Acetaminophen 325 Mg Tablet) 650 mg PO Q6H PRN PRN Reason: Headache/Pain Mild Scale (1-3) Al Hydroxide/Mg Hydroxide (Magnesium Hydrox/Alum Hydrox 30 Ml Oral.Susp) 30 ml PO Q6H PRN PRN Reason: Heartburn/Nausea Last Admin: 09/26/23 13:45 Dose: 30 ml Hydrochlorothiazide (Hydrochlorothiazide 12.5 Mg Tablet) 12.5 mg PO DAILY SYLVESTER; Protocol Last Admin: 09/30/23 09:31 Dose: 12.5 mg Hydroxyzine HCl (Hydroxyzine Hcl 25 Mg Tablet) 25 mg PO Q6H PRN PRN Reason: Anxiety Last Admin: 09/27/23 22:21 Dose: 25 mg Magnesium Hydroxide (Milk Of Magnesia 30 Ml Oral.Susp) 30 ml PO DAILY PRN PRN Reason: Constipation Nicotine (Nicotine 14 Mg Patch.Td24) 14 mg TRANSDERMA DAILY ON LICENSE OF [facility] Last Admin: 09/30/23 09:31 Dose: 14 mg Nicotine Polacrilex (Nicotine Polacrilex 2 Mg Gum) 2 mg BUCCAL Q2H PRN PRN Reason: Nicotine Cravings Last Admin: 09/29/23 20:28 Dose: 2 mg Olanzapine (Olanzapine 7.5 Mg Tablet) 15 mg PO BEDTIME SYLVESTER Last Admin: 09/29/23 22:03 Dose: 15 mg Trazodone HCl (Trazodone Hcl 50 Mg Tablet) 50 mg PO BEDTIME MRX1 PRN PRN Reason: Insomnia Last Admin: 09/27/23 22:21 Dose: 50 mg Allergies Allergies Allergy/AdvReac Type Severity Reaction Status Date / Time No Known Allergies Allergy Verified 09/04/23 23:31 Assessment & Plan Assessment & Plan (1) Schizophrenia: Status: Acute Code(s): F20.9 - Schizophrenia, unspecified (2) Alcohol use disorder: Status: Acute Code(s): F10.90 - Alcohol use, unspecified, uncomplicated (3) Cannabis use disorder: Status: Acute Code(s): F12.90 - Cannabis use, unspecified, uncomplicated Plan 27 yo male, presents with acute psychosis, ?schizophrenia, alcohol and cannabis use disorder. Pt is a very poor historian, focused on leaving the hospital and with intermittent resistance to medications. By hx, pt does well on regime which we will keep, holding the antidepressant while his psychotic sx are better managed. Will use lorazepam for detox with supportive MVI, folic acid and thiamine. Plan: Collateral Contact Olanzapine prn Lorazepam detox per [facility] MVI, Thiamine, Folic Acid Continue Risperdal Encourage alliance building add hydroxyzine 10mg BID for anxiety 09/08/23 continue treatmetn plan 09/09/23 Increase Risperdal to 3 mg bid Encouarge pt to remain in treatment and sign a conditional voluntary 09/10/23 Pt has signed a CV Continue current regime and plan of care 09/11/23 Begin one to one special due to intrusive sx. Continue regime 09/12/23 Discontinue Risperdal Haldol 5 mg bid and bid prn psychosis Benztropine 0.5 mg bid Lorazepam 0.25 mg bid Lorazepam prn for anxiety, agitation Repeat CBCD 09/13 (hx of increase of WBC) Transfer to M3 as pt's symptoms have angered his peers Continue one to one 09/13: Patient presents calm, cooperative. Does not present with intrusive behavior; 1:1 DC'd, placed on 5 minute safety checks. Patient reports feeling good today;he feels the medications are slowing me down .Pt states he does not recall going into other people's room's or any previous behavior from M5. denies SI/HI/VH/AH. Continue current tx plan. Consider BYRNE. 09/14:Continue current management and treatment plan. 09/15: Continue current management and treatment plan. 09/16: Patient presents guarded during 1:1. T/W asked pt how he was feeling today, pt replied, I don't know what that means . Pt reports he feels some confusion but was not able to elaborate. Pt stated, I don't want to make eye contact with any females. I don't know why anyone would care if they have a boyfriend or . He states he does not recall touching any other patients. Continues on 1:1. He reports sleeping well. Denies SI/HI/VH/AH. T/W spoke with pt's parents when they visited pt today; mother reported patient appears improved since the last time she visited patient a few days ago. 09/17: T/W and met with patient in unit office. Patient presents guarded during 1:1. Patient reports feeling good today; pt stated, I don't remember why I'm in here, the police showed up at my door . Pt was asked why he feels the need to touch other people; pt stated, because they are cute. Can White people touch Asians? because I have a niece and nephew who are White and no one better touch them . Patient was educated regarding consent however he appeared confused and stated, can Black people touch White people? . denies SI/HI/VH/AH. Haldol increased to 10mg PO BID. if no improvement in thought process, will consider starting zyprexa and tapering haldol. 09/18: Patient presents guarded during 1:1. Patient reports feeling okay today. Pt reports he has been keeping to himself; continues to present with some confusion. Continues on 1:1 safety checks. denies SI/HI/VH/AH. denies any side effects from increase in Haldol. Continue current tx plan. 09/19 patient remains disorganized; continue one-to-one; continue current treatment plan 09/20 patient open to medication changes; does not know why he is here and has low insight into illness however show some improvement bike knowledge in his need for medications -will defer to primary team regarding medication changes though patient is open to med management, including clozapine and weekly blood draws 09/21 continue tx. 09/22 continue tx. 09/23: guarded, flat affect. Pt reports feeling good ; reports he sleeps a lot because it feels good . Responds with short answers. Pt reports this is not how he is at baseline. discussed changing his medication from Haldol to Zyprexa. Risks/benefits discussed. Haldol decreased to 5mg PO BID Start: zyprexa 10mg PO bedtime Family meeting scheduled for this Saturday09/25/23. 09/24: Guarded, flat affect. Isolative. Napping most of day. Pt stated, I feel okay. The medication doesn't make me sleepy. I just like to sleep . denies SI/HI/VH/AH. 09/25: family meeting with pt and his parents; manager social work, Pedrito, present. Patient reports feeling better with decreasing the Haldol . Patient presents with wider range of affect and more talkative than days prior. Patient's mother stated she also believed patient appeared slightly improved since the last time she visited. Pt taken off 1:1; will trial 5 minute checks. Patient reports he plans on keeping to myself and not bothering anyone . Will continue to increase zyprexa dosage. 09/26: Patient reports he feels he is doing well . Pt stated, I'm hoping to go home next week . Continue to present with wider range of affect; smiling and laughing at times during conversation. This has not happened since treating him. Patient doing well on 5 minute checks; remains in behavioral control. Zyprexa increased to 15mg PO bedtime. DC'd Haldol. 09/27 Patient reports that he is feeling much better. Says that his mind is clearer as wel and describes it by saying that now he can think openly and not closed in. Thinks it is the medication change that is making the difference. Saying he is getting much better sleep as well. No complaints and no request. Remains in behavioral and impulse control. 09/29/2023: No changes to current plan 09/30/2023 Patient shows clear improvement remains concrete continue olanzapine discharge planning Reason for continued inpatient stay Substantial Risk for: inability to function and rapid decompensation Time Spent With Patient Time: Total time managing care of this patient today ____ minutes.
[2023-09-30] MEDS: Nicotine Polacrilex 2 MG GUM BUCCAL ×2 (17:25→21:15)
[2023-09-30 19:55] VITALS: BP 124/82; PULSE 116; RESP 15; TEMP 36.8; O2SAT 98
[2023-09-30] MEDS: OLANZapine 7.5 MG TABLET 15 MG PO (21:15)
[2023-10-01 07:58] VITALS: BP 91/53; PULSE 88; RESP 16; TEMP 36.5; O2SAT 97
[2023-10-01 08:44] VITALS: BP 116/80
[2023-10-01] MEDS: Nicotine 14 MG PATCH.TD24 TRANSDERMA (08:46)
[2023-10-01] MEDS: hydroCHLOROthiazide 12.5 MG TABLET PO (08:46)
[2023-10-01] MEDS: Nicotine Polacrilex 2 MG GUM BUCCAL ×3 (13:22→21:51)
[2023-10-01] MEDS: OLANZapine 7.5 MG TABLET 15 MG PO (21:47)
[2023-10-01 21:52] VITALS: BP 133/88; PULSE 109; TEMP 36.8; O2SAT 97
[2023-10-02 07:10] VITALS: BP 105/56; RESP 16; TEMP 36.1; O2SAT 97
--- NOTE | 2023-10-02 09:33 | HO.PSYCHPN ---
Subjective Subjective Date of Service: 10/02/23 Reason For Visit: acute psychosis Subjective Notes: Conditional Voluntary Interim History: Reviewed with . Patient reports doing well today. Pt stated, my mind feels clearer rather than thinking in circles . Pt reports he is looking forward to returning home. Patient reports he plans on following up with outpatient providers. Denies SI/HI/VH/AH. T/W spoke to patients father, who reports he plans on picking him up tomorrow at 11am. Medication Compliance: Yes Side effects from medications: No Attending Groups: No Review of Systems Constitutional: Reports as per HPI Eyes: Reports as per HPI Reports as per HPI Cardiovascular: Reports as per HPI Respiratory: Reports as per HPI Gastrointestinal: Reports as per HPI Genitourinary: Reports as per HPI Musculoskeletal: Reports as per HPI Skin/Breast: Reports as per HPI Reports as per HPI Psychiatric: Reports as per HPI Endocrine: Reports as per HPI Hematologic/Lymphatic: Reports as per HPI Allergic/Immunologic: Reports as per HPI Mental Status Exam Mental Status Exam Narrative: Pt is alert and oriented; behavior is cooperative and calm; dressed in casual attire; mood is described as good ; eye contact appropriate; Speech is normal rate, volume and prosody and not pressured; no psychomotor agitation/retardation present; thought process is organized; Thought content is on discharge; otherwise pertinent to relevant topics and without any delusional content, paranoid ideations or grandiosity; denies SI/HI. There is no evidence of perceptual disturbance. Patients insight and judgment are fair. Diagnostics Vital Signs (24Hr): Vital Signs - 24 hr 10/01/23 21:52 10/02/23 07:10 Temperature 98.2 F 97.0 F Pulse Rate 109 H Respiratory Rate 16 Blood Pressure 133/88 105/56 L Pulse Oximetry 97 97 Oxygen Delivery Method Room Air Room Air BMI result Body Mass Index 25.0 Labs 09/26/23 13:26 09/26/23 13:26 Medications Medications Current Medications Acetaminophen (Acetaminophen 325 Mg Tablet) 650 mg PO Q6H PRN PRN Reason: Headache/Pain Mild Scale (1-3) Al Hydroxide/Mg Hydroxide (Magnesium Hydrox/Alum Hydrox 30 Ml Oral.Susp) 30 ml PO Q6H PRN PRN Reason: Heartburn/Nausea Last Admin: 09/26/23 13:45 Dose: 30 ml Hydrochlorothiazide (Hydrochlorothiazide 12.5 Mg Tablet) 12.5 mg PO DAILY SYLVESTER; Protocol Last Admin: 10/01/23 08:46 Dose: 12.5 mg Hydroxyzine HCl (Hydroxyzine Hcl 25 Mg Tablet) 25 mg PO Q6H PRN PRN Reason: Anxiety Last Admin: 09/27/23 22:21 Dose: 25 mg Magnesium Hydroxide (Milk Of Magnesia 30 Ml Oral.Susp) 30 ml PO DAILY PRN PRN Reason: Constipation Nicotine (Nicotine 14 Mg Patch.Td24) 14 mg TRANSDERMA DAILY SYLVESTER Last Admin: 10/01/23 08:46 Dose: 14 mg Nicotine Polacrilex (Nicotine Polacrilex 2 Mg Gum) 2 mg BUCCAL Q2H PRN PRN Reason: Nicotine Cravings Last Admin: 10/01/23 21:51 Dose: 2 mg Olanzapine (Olanzapine 7.5 Mg Tablet) 15 mg PO BEDTIME SYLVESTER Last Admin: 10/01/23 21:47 Dose: 15 mg Trazodone HCl (Trazodone Hcl 50 Mg Tablet) 50 mg PO BEDTIME MRX1 PRN PRN Reason: Insomnia Last Admin: 09/27/23 22:21 Dose: 50 mg Allergies Allergies Allergy/AdvReac Type Severity Reaction Status Date / Time No Known Allergies Allergy Verified 09/04/23 23:31 Assessment & Plan Assessment & Plan (1) Schizophrenia: Status: Acute Code(s): F20.9 - Schizophrenia, unspecified (2) Alcohol use disorder: Status: Acute Code(s): F10.90 - Alcohol use, unspecified, uncomplicated (3) Cannabis use disorder: Status: Acute Code(s): F12.90 - Cannabis use, unspecified, uncomplicated Plan 27 yo male, presents with acute psychosis, ?schizophrenia, alcohol and cannabis use disorder. Pt is a very poor historian, focused on leaving the hospital and with intermittent resistance to medications. By hx, pt does well on regime which we will keep, holding the antidepressant while his psychotic sx are better managed. Will use lorazepam for detox with supportive MVI, folic acid and thiamine. Plan: Collateral Contact Olanzapine prn Lorazepam detox per [facility] MVI, Thiamine, Folic Acid Continue Risperdal Encourage alliance building add hydroxyzine 10mg BID for anxiety 09/08/23 continue treatmetn plan 09/09/23 Increase Risperdal to 3 mg bid Encouarge pt to remain in treatment and sign a conditional voluntary 09/10/23 Pt has signed a CV Continue current regime and plan of care 09/11/23 Begin one to one special due to intrusive sx. Continue regime 09/12/23 Discontinue Risperdal Haldol 5 mg bid and bid prn psychosis Benztropine 0.5 mg bid Lorazepam 0.25 mg bid Lorazepam prn for anxiety, agitation Repeat CBCD 09/13 (hx of increase of WBC) Transfer to M3 as pt's symptoms have angered his peers Continue one to one 09/13: Patient presents calm, cooperative. Does not present with intrusive behavior; 1:1 DC'd, placed on 5 minute safety checks. Patient reports feeling good today;he feels the medications are slowing me down .Pt states he does not recall going into other people's room's or any previous behavior from M5. denies SI/HI/VH/AH. Continue current tx plan. Consider BYRNE. 09/14:Continue current management and treatment plan. 09/15: Continue current management and treatment plan. 09/16: Patient presents guarded during 1:1. T/W asked pt how he was feeling today, pt replied, I don't know what that means . Pt reports he feels some confusion but was not able to elaborate. Pt stated, I don't want to make eye contact with any females. I don't know why anyone would care if they have a boyfriend or . He states he does not recall touching any other patients. Continues on 1:1. He reports sleeping well. Denies SI/HI/VH/AH. T/W spoke with pt's parents when they visited pt today; mother reported patient appears improved since the last time she visited patient a few days ago. 09/17: T/W and met with patient in unit office. Patient presents guarded during 1:1. Patient reports feeling good today; pt stated, I don't remember why I'm in here, the police showed up at my door . Pt was asked why he feels the need to touch other people; pt stated, because they are cute. Can White people touch Asians? because I have a niece and nephew who are White and no one better touch them . Patient was educated regarding consent however he appeared confused and stated, can Black people touch White people? . denies SI/HI/VH/AH. Haldol increased to 10mg PO BID. if no improvement in thought process, will consider starting zyprexa and tapering haldol. 09/18: Patient presents guarded during 1:1. Patient reports feeling okay today. Pt reports he has been keeping to himself; continues to present with some confusion. Continues on 1:1 safety checks. denies SI/HI/VH/AH. denies any side effects from increase in Haldol. Continue current tx plan. 09/19 patient remains disorganized; continue one-to-one; continue current treatment plan 09/20 patient open to medication changes; does not know why he is here and has low insight into illness however show some improvement bike knowledge in his need for medications -will defer to primary team regarding medication changes though patient is open to med management, including clozapine and weekly blood draws 09/21 continue tx. 09/22 continue tx. 09/23: guarded, flat affect. Pt reports feeling good ; reports he sleeps a lot because it feels good . Responds with short answers. Pt reports this is not how he is at baseline. discussed changing his medication from Haldol to Zyprexa. Risks/benefits discussed. Haldol decreased to 5mg PO BID Start: zyprexa 10mg PO bedtime Family meeting scheduled for this Saturday09/25/23. 09/24: Guarded, flat affect. Isolative. Napping most of day. Pt stated, I feel okay. The medication doesn't make me sleepy. I just like to sleep . denies SI/HI/VH/AH. 09/25: family meeting with pt and his parents; social studies department chair, Pedrito, present. Patient reports feeling better with decreasing the Haldol . Patient presents with wider range of affect and more talkative than days prior. Patient's mother stated she also believed patient appeared slightly improved since the last time she visited. Pt taken off 1:1; will trial 5 minute checks. Patient reports he plans on keeping to myself and not bothering anyone . Will continue to increase zyprexa dosage. 09/26: Patient reports he feels he is doing well . Pt stated, I'm hoping to go home next week . Continue to present with wider range of affect; smiling and laughing at times during conversation. This has not happened since treating him. Patient doing well on 5 minute checks; remains in behavioral control. Zyprexa increased to 15mg PO bedtime. DC'd Haldol. 09/27 Patient reports that he is feeling much better. Says that his mind is clearer as wel and describes it by saying that now he can think openly and not closed in. Thinks it is the medication change that is making the difference. Saying he is getting much better sleep as well. No complaints and no request. Remains in behavioral and impulse control. 09/29: No changes to current plan 09/30: Patient shows clear improvement remains concrete continue olanzapine discharge planning. 10/01: Patient reports doing well today. Pt stated, my mind feels clearer rather than thinking in circles . Pt reports he is looking forward to returning home. Patient reports he plans on following up with outpatient providers. Denies SI/HI/VH/AH. T/W spoke to patients father, who reports he plans on picking him up tomorrow at 11am. Patient educated on: diagnosis, medication risk/benefits and therapeutic strategies Guardian/Caregiver educated on: diagnosis and medication risk/benefits Informed Consent: understands Reason for continued inpatient stay Substantial Risk for: stable for discharge Time Spent With Patient Time: Total time managing care of this patient today _30___ minutes.
[2023-10-02 10:05] VITALS: BP 126/81; PULSE 107
[2023-10-02] MEDS: hydroCHLOROthiazide 12.5 MG TABLET PO (10:15)
[2023-10-02] MEDS: Nicotine 14 MG PATCH.TD24 TRANSDERMA (10:15)
[2023-10-02] MEDS: Nicotine Polacrilex 2 MG GUM BUCCAL (18:59)
[2023-10-02 21:45] VITALS: BP 122/85; PULSE 105; RESP 14; TEMP 36.9; O2SAT 99
[2023-10-02] MEDS: OLANZapine 7.5 MG TABLET 15 MG PO (22:00)
[2023-10-03 07:00] VITALS: BMI 26.0
[2023-10-03 07:25] VITALS: BP 128/70; PULSE 104; TEMP 36.1; O2SAT 96
[2023-10-03] MEDS: hydroCHLOROthiazide 12.5 MG TABLET PO (08:22)
--- NOTE | 2023-10-03 09:16 | PM.PSYDC ---
DS: Providers Provider Date of Service: 10/03/23 Date of admission: 09/05/23 16:03 Date of discharge: 10/03/23 Primary care physician: Unknown Physician Admitting clinician: Gloria Holland Attending physician on admission: Martín Morris Attending physician on discharge: Martín Morris Discharging clinician: Yandy Ortega DS: Diagnosis Discharge Diagnosis (1) Schizophrenia: Status: Acute (2) Alcohol use disorder: Status: Acute (3) Cannabis use disorder: Status: Acute DS: Medications Discharge Medications Home Medications: Home Medications Medication Instructions Recorded Confirmed hydrochlorothiazide 12.5 mg capsule 12.5 mg PO DAILY 09/04/23 09/04/23 Previous Rx's Medication Instructions Recorded hydroxyzine HCl 25 mg tablet 25 mg PO BID PRN Anxiety 30 days 10/02/23 #60 tabs olanzapine 15 mg tablet 15 mg PO BEDTIME 30 days #30 tabs 10/02/23 Mental Status Exam Mental Status Exam Narrative: Pt is alert and oriented; behavior is cooperative, friendly and calm; dressed in casual attire; mood is described as good ; eye contact appropriate; Speech is normal rate, volume and prosody and not pressured; no psychomotor agitation/retardation present; thought process is organized and goal directed; Thought content is on discharge; otherwise pertinent to relevant topics and without any delusional content, paranoid ideations or grandiosity; denies SI/HI. There is no evidence of perceptual disturbance. Patients insight and judgment appear fair. Data Data Completed and Pending Completed studies during hospitalization [Text1]: 09/26/23 09/26/23 13:26 13:26 WBC 9.4 RBC 4.44 L Hgb 14.2 Hct 42.8 MCV 96.4 MCH 32.0 MCHC 33.2 RDW 12.8 Plt Count 346 MPV 9.2 L Immature Gran % (Auto) 0.7 H Neut % (Auto) 52.8 Lymph % (Auto) 28.0 [place] % (Auto) 14.8 H Eos % (Auto) 3.0 Baso % (Auto) 0.7 Lymph # (Auto) 2.6 [place] # (Auto) 1.4 H Eos # (Auto) 0.3 Baso # (Auto) 0.1 Abs Immat Gran (auto) 0.07 H Absolute Neuts (auto) 5.0 Absolute Nucleated RBC 0.000 Nucleated RBC % (auto) 0.0 Sodium 138 Potassium 4.1 Chloride 104 Carbon Dioxide 25 Anion Gap 13 BUN 12 12 Creatinine 0.75 Estim Creat Clear Calc 125.2 Estimated GFR > 60 Random Glucose 140 H Estimat Average Glucose 108 Hemoglobin A1c % 5.4 Calcium 9.4 Total Bilirubin 0.2 Direct Bilirubin < 0.2 AST 25 ALT 62 H Alkaline Phosphatase 85 Ammonia 38 Total Protein 7.8 Albumin 4.4 Triglycerides 432 H Cholesterol 250 H LDL Cholesterol, Calc TNP HDL Cholesterol 45 TSH 1.90 DS: Summary Hospital Course Hospital Course: Patient is a 27 yo male, to ER with parents from [facility] per recommendation of his therapist with paranoia, disorganized thinking, responding to internal stimuli, SI, HI per father's report, alcohol abuse, medication non compliance. Family reports self-dialoguing, dissociative episodes, sabianist preoccupation (asking parents if he was God), loss of memory, lability and irritability. Family believes pt had not taken meds in ~72 hours prior to admission. On the unit, pt presents with acute psychosis. Intermittent med compliance-positive response per team when he does take medication. He allowed a brief meeting with tw to discuss discharge. Dash/Haydee explained. Pt did not want to discuss further. Showering this afternoon, however remains somewhat isolative. Able to complete some of his psychosocial history with Heather GARCIA. Symptoms decrease with medicine compliance. During hospital course, Olanzapine prn Lorazepam detox per [facility] MVI, Thiamine, Folic Acid Continue Risperdal add hydroxyzine 10mg BID for anxiety Increase Risperdal to 3 mg bid. Encouarge pt to remain in treatment and sign a conditional voluntary Pt has signed a CV. Begin one to one special due to intrusive sx. Discontinue Risperdal. Haldol 5 mg bid and bid prn psychosis. Benztropine 0.5 mg bid. Lorazepam 0.25 mg bid. Lorazepam prn for anxiety, agitation. Repeat CBCD 09/13 (hx of increase of WBC). Transfer to M[facility] as pt's symptoms have angered his peers Patient presents calm, cooperative. Does not present with intrusive behavior; 1:1 DC'd, placed on 5 minute safety checks. Patient reports feeling good today;he feels the medications are slowing me down .Pt states he does not recall going into other people's room's or any previous behavior from M[facility]. denies SI/HI/VH/AH. Consider BYRNE. Patient presents guarded during 1:1. T/W asked pt how he was feeling today, pt replied, I don't know what that means . Pt reports he feels some confusion but was not able to elaborate. Pt stated, I don't want to make eye contact with any females. I don't know why anyone would care if they have a boyfriend or . He states he does not recall touching any other patients. Continues on 1:1. He reports sleeping well. T/W spoke with pt's parents when they visited pt today; mother reported patient appears improved since the last time she visited patient a few days ago. T/W and met with patient in unit office. Patient presents guarded during 1:1. Patient reports feeling good today; pt stated, I don't remember why I'm in here, the police showed up at my door . Pt was asked why he feels the need to touch other people; pt stated, because they are cute. Can White people touch Asians? because I have a niece and nephew who are White and no one better touch them . Patient was educated regarding consent however he appeared confused and stated, can Black people touch White people? . denies SI/HI/VH/AH. Haldol increased to 10mg PO BID. if no improvement in thought process, will consider starting zyprexa and tapering haldol. Patient presents guarded during 1:1. Patient reports feeling okay today. Pt reports he has been keeping to himself; continues to present with some confusion. Continues on 1:1 safety checks. denies any side effects from increase in Haldol. guarded, flat affect. Pt reports feeling good ; reports he sleeps a lot because it feels good . Responds with short answers. Pt reports this is not how he is at baseline. discussed changing his medication from Haldol to Zyprexa. Risks/benefits discussed. Haldol decreased to 5mg PO BID Start: zyprexa 10mg PO bedtime Family meeting with pt and his parents; administrator social welfare, Pedrito, present. Patient reports feeling better with decreasing the Haldol . Patient presents with wider range of affect and more talkative than days prior. Patient's mother stated she also believed patient appeared slightly improved since the last time she visited. Pt taken off 1:1; will trial 5 minute checks. Patient reports he plans on keeping to myself and not bothering anyone . Will continue to increase zyprexa dosage. Patient reports he feels he is doing well . Pt stated, I'm hoping to go home next week . Continue to present with wider range of affect; smiling and laughing at times during conversation. This has not happened since treating him. Patient doing well on 5 minute checks; remains in behavioral control. Zyprexa increased to 15mg PO bedtime. DC'd Haldol. Patient reports that he is feeling much better. Says that his mind is clearer as well and describes it by saying that now he can think openly and not closed in. Thinks it is the medication change that is making the difference. Saying he is getting much better sleep as well. No complaints and no request. Remains in behavioral and impulse control. Patient shows clear improvement remains concrete continue olanzapine discharge planning. Patient reports doing well today. Pt stated, my mind feels clearer rather than thinking in circles . Pt reports he is looking forward to returning home. Patient reports he plans on following up with outpatient providers. Denies SI/HI/VH/AH. T/W spoke to patients father, who reports he plans on picking him up tomorrow at 11am. Time spent discussing smoking cessation with patient: 3 to 10 minutes Status at Discharge Cognitive/behavioral status at discharge: Patient was interviewed prior to discharge and found to be fully oriented and without any SI or HI. Patient has insight and demonstrates good judgment in terms of wanting to pursue treatment. Patient is not in imminent risk of harm to self or others and has a safety plan that includes presenting to the closest ER or calling 911 if feeling unsafe. Patient has been observed closely by nursing and unit staff throughout admission; patient has not engaged in any behaviors that suggest dangerousness to self or others and has demonstrated appropriate behaviors and impulse control. Functional status at discharge: independent ambulation Overall status at discharge: patient is back to baseline Time Spent with Patient Time attestation: Total time managing care of this patient today _30___ minutes. Time spent: Less than 30 minutes Discharge Plan Discharge Anticipated Discharge Date/Time: 10/03/23 11:00 Patient Disposition: Home, Self-Care Discharge Diagnosis: Schizophrenia, ETOH use d/o, cannabis use d/o Referrals: [facility] [Other] - 1 Week (fax- [phone] Visiting RN to start at D/C. ) MILAN TARANGO. THERAPY INTAKE [Other] - 10/03/23 2:00 pm (IN PERSON) [facility] MD [Other] - 10/31/23 11:00 am (TELEHEALTH) NEO BISWAS MA [Other] - 12/02/23 1:00 pm (TELEHEALTH) Bj Flores MD [Physician] - 1 Week (PCP will call patient with follow up appt.) Discharge Medications: New olanzapine 15 mg tablet 15 mg PO BEDTIME 30 Days Qty: 30 0RF hydroxyzine HCl 25 mg Tablet 25 mg PO BID PRN (Reason: Anxiety) 30 Days Qty: 60 0RF Continued hydrochlorothiazide 12.5 mg capsule 12.5 mg PO DAILY Discontinued cyanocobalamin (vitamin B-12) 1,000 mcg tablet 1,000 mcg PO DAILY thiamine HCl (vitamin B1) 100 mg tablet 100 mg PO DAILY risperidone 2 mg tablet 2 mg PO BID citalopram 20 mg tablet 20 mg PO DAILY Discharge Orders: Discharge Order (Routine); Ordered 10/03/23 Ordered By: Yandy Ortega Diet: Regular diet Activity on Discharge: As tolerated Stand Alone Forms: Patient Portal Discharge page, Community Support Care Plan Goals: Maintain mood and safe behaviors Take medications as prescribed Continue to pursue sobriety Practice coping skills Continue with outpatient providers and reach out to them as needed Health Concerns: Mood stability and behaviors Sobriety Plan of Treatment: Follow up with your PCP, psychiatric provider and other outpatient providers regarding above concerns Take medications as prescribed Assessment: Patient was interviewed prior to discharge and found to be fully oriented and without any SI or HI. Patient has insight and demonstrates good judgment in terms of wanting to pursue treatment. Patient is not in imminent risk of harm to self or others and has a safety plan that includes presenting to the closest ER or calling 911 if feeling unsafe. Patient has been observed closely by nursing and unit staff throughout admission; patient has not engaged in any behaviors that suggest dangerousness to self or others and has demonstrated appropriate behaviors and impulse control. Discharge Date/Time: 10/03/23 10:55
== END 2023-10-03 10:55 | disposition home or self-care (01) | DRG 750 ==
LOC: HO.ED 16:15 → HO.PM5 09-05 16:08 → HO.PADLT16 09-12 13:21
PROVIDERS: Clinical Nurse Specialist Psychiatric/Mental Health, Adult; Physician Assistant; Admitting Provider Psychiatry & Neurology Psychiatry; Emergency Provider Student in an Organized Health Care Education/Training Program; Responsible Provider Registered Nurse; Visit Provider Psychiatry & Neurology Psychiatry
DX: F20.9 Schizophrenia, unspecified (principal); F10.90 Alcohol use, unspecified, uncomplicated; F12.90 Cannabis use, unspecified, uncomplicated; Z20.822 Contact with and (suspected) exposure to COVID-19; Z79.899 Other long term (current) drug therapy
CPT/HCPCS: 36415; 80048; 80053; 80061; 80076; 80143; 80179; 80307; 81001; 82140; 82607; 82746; 83036; 83690; 83735; 84439; 84443; 84520; 85025; 87635; 93005; 99285

== ENCOUNTER → 2023-09-05 16:03 | Outpatient (BNV) | payer OTHER, SELFPAY | PROVIDERS: Admitting Provider Psychiatry & Neurology Psychiatry; Emergency Provider Student in an Organized Health Care Education/Training Program; Visit Provider Clinical Nurse Specialist Psychiatric/Mental Health, Adult | DX: F20.0 Paranoid schizophrenia (principal); F10.90 Alcohol use, unspecified, uncomplicated; F12.90 Cannabis use, unspecified, uncomplicated | CPT/HCPCS: 99231; 99232 ==

== ENCOUNTER → 2023-09-05 16:03 | Outpatient (BNV) | payer OTHER, SELFPAY | PROVIDERS: Admitting Provider Psychiatry & Neurology Psychiatry; Emergency Provider Student in an Organized Health Care Education/Training Program; Responsible Provider Registered Nurse; Visit Provider Psychiatry & Neurology Psychiatry | DX: F20.89 Other schizophrenia (principal); F10.90 Alcohol use, unspecified, uncomplicated; F12.90 Cannabis use, unspecified, uncomplicated | CPT/HCPCS: 99231; 99232 ==